=== PATIENT | female | born 1935 | race Caucasian/White ===

== ENCOUNTER 2018-12-08 01:09 | Emergency (ER) | payer MEDICARE, MEDICAID ==
[~2018-12-08] VITALS: Ht 157.5 cm; Wt 76.7 kg
[2018-12-08] MEDS ORDERED: PANT40TA3 (01:17)
[2018-12-08] MEDS ORDERED: ISOS30TA3 (01:17)
[2018-12-08] MEDS ORDERED: BUME1TAB4 (01:17)
[2018-12-08] MEDS ORDERED: MONT10TA24 (01:17)
[2018-12-08] MEDS ORDERED: SUCR1TAB (01:17)
[2018-12-08] MEDS ORDERED: WARF-47 (01:17)
[2018-12-08] MEDS ORDERED: SPIR25TA5 (01:17)
[2018-12-08] MEDS ORDERED: CARV6.252 (01:17)
[2018-12-08] MEDS ORDERED: POTA10CA43 (01:17)
[2018-12-08] MEDS ORDERED: IPRA3AMP31 (01:17)
[2018-12-08] MEDS ORDERED: WARF-48 (01:17)
[2018-12-08] MEDS ORDERED: LEVO175T5 (01:17)
--- OUTSIDE RECORDS SUMMARY | 2018-12-08 01:17 | XMS REPORT ---
Author Author [facility] Medical Staff Organization [facility] Address [address] [place] [address] Phone [phone] Summary purpose CCDA Sent to NEE Chief Complaint and Reason for Visit Admit Diagnosis 1 ATRIAL FIBRILLATION Problem list No authorized problems tracked for continuity of care are available for this visit. Encounters No authorized problems tracked for encounter diagnoses are available for this visit. Medications No home medications recorded for this patient visit Allergies, adverse reactions, alerts Allergen Category Ingredient Status Reaction Severity Onset No Allergy Information Available Drug No Allergy Information Available Active Immunizations No immunizations recorded for this patient visit Relevant diagnostic tests and/or laboratory data RESULTS CBC [id number] Result Normal Range Units White Blood Count L 2.75 3.0-11.2 K/uL Red Blood Cells L 3.10 3.99-5.76 x 106/uL Hemoglobin L 9.5 11.7-16.7 g/dl Hematocrit L 30.0 38.7-52.5 % Mean Alice Volume 96.8 86-100 FL Mean Alice Hemoglobin 30.6 27.5-33.5 pg Mean Alice Hemoglobin Conc 31.7 31.3-36.0 g/dl Red Cell Distribution Width 12.5 % Platelet Count L 79 140-375 K/uL Neutrophil % 66.1 41.1-91.7 % Lymphocyte % 20.4 7.6-58.5 % Monocyte % 11.3 0-13 % Eosinophil % 1.5 0-10 % Basophil % 0.7 0-7 % Chemistry Group [id number] Result Normal Range Units Urea Nitrogen (BUN) H 40 9.8-20.1 mg/dl Creatinine H 1.28 0.57-1.11 mg/dl Bun/Creatiinine Ratio 31 Ratio Glucose H 129 70-100 mg/dl Sodium 141 136-145 mmol/L Potassium 4.8 3.5-5.1 mEq/l Chloride 103 98-107 mEq/l CO2 30 23-31 mmol/L Anion GAP 8 g/dl Calcium 10.0 8.4-10.5 mg/dl Osmolality Calculation H 303 280-300 mOsm/kg eGFR L 40 >=60 ml/min. Coagulation Group [id number] Result Normal Range Units Protime H 35.6 9.8-12.5 Sec INR 3.28 INR INR THERAPEUTIC RANGES Primary and secondary prevention of venous thrombosis 2.0-3.0 Active venous thrombosis, pulmonary embolism and prevention of recurrent venous thrombosis: 2.0-4.0 Prevention of arterial thrombo-embolism, including patients with mechanical heart valves: 2.5-3.5 History of procedures Procedure Code Code Type Description Date Performed Performing Physician 72901 CPT-4 METABOLIC PANEL TOTAL CA 12-17-2014 JUAN VÁZQUEZ 44094 CPT-4 PROTHROMBIN TIME 12-17-2014 JUAN VÁZQUEZ 10017 CPT-4 COMPLETE CBC W/AUTO DIFF WBC 12-17-2014 JUAN VÁZQUEZ 13342 CPT-4 ROUTINE VENIPUNCTURE 12-17-2014 JUAN VÁZQUEZ Functional status No functional or cognitive status observations are available for this visit. Vital signs No authorized vital signs are available for this visit. Social history No Social History or smoking status observations were recorded for this visit. ( Unknown if ever smoked.) Treatment Plan No treatment plan text is available for this visit. Hospital discharge instructions No discharge instruction text is available for this visit.
--- OUTSIDE RECORDS SUMMARY | 2018-12-08 01:17 | XMS REPORT | Referral Summary ---
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 Discharge Disposition: 01-Home or Self Care Attending Physician: Edil Cantrell MD Admitting Physician: Marcela Felder DO Vital Signs Most recent to 1 oldest [Reference Range]: Temperature Axillary 36.7 degC [35.2-36.7 degC] (06/24/15 4:00 AM) Temperature Oral 36.6 degC [35.8-37.3 degC] (06/27/15 5:35 PM) Temperature Tympanic 36.7 degC [36.6-38.1 degC] (06/25/15 4:00 AM) Temperature Temporal 36.5 degC Artery [36.3-37.8 (06/25/15 9:43 PM) degC] Peripheral Pulse 60 bpm Rate [60-100 bpm] (06/27/15 5:35 PM) Peripheral Pulse 60 bpm Rate with Activity (06/24/15 9:28 AM) Heart Rate Monitored 61 bpm [60-100 bpm] (06/26/15 9:00 PM) Respiratory Rate 18 br/min [14-20 br/min] (06/27/15 5:35 PM) Blood Pressure 142/63 mmHg [90-140/60-90 mmHg] *HI* (06/27/15 5:35 PM) Mean Arterial 62 mmHg Pressure, Cuff (06/25/15 9:00 PM) Pulse Rate [60-100 72 bpm bpm] (06/27/15 3:41 PM) SpO2 100 % (06/27/15 3:00 PM) Problem List Condition Effective Dates Status Health Status Informant At risk for activity Active intolerance(Confirme d)1 At risk for Active infection(Confirmed) 2 At risk for Active injury(Confirmed)3 At risk for unstable Active blood glucose level(Confirmed)4 At risk of pressure Active sore(Confirmed) Bleeding Active precautions(Confirme d)5 Breath 06/21/15 Active patient shortness(Confirmed) Edema Active patient extremities(Confirme d) Fatigue(Confirmed) Active patient Fluid Active imbalance(Confirmed) 6 Bleeding Active gastrointestinal(Con firmed) Tricuspid valve Active replaced(Confirmed) Mitral valve Active replaced(Confirmed) Left ventricular Active systolic dysfunction, NYHA class 2(Confirmed) Sick sinus Active syndrome(Confirmed) 1Problem added automatically by system based on initiation of At Risk for Activity Intolerance Plan of Care 2Problem added automatically by system based on initiation of At Risk for Infection in Nutrition Plan of Care 3Problem added automatically by system based on initiation of Risk for Injury Plan of Care 4Problem added automatically by system based on initiation of At Risk for Unstable Blood Glucose Plan of Care 5Problem added automatically by system based on initiation of Bleeding Precautions Plan of Care 6Problem added automatically by system based on initiation of Fluid Volume Imbalance Plan of Care Allergies, Adverse Reactions, Alerts No Known Allergies Medications Aldactone 12.5 mg, Oral, Daily, 0 Refill(s) Start Date: 06/21/15 Status: Ordered Bumex 1 mg, Oral, Daily, 0 Refill(s) Start Date: 06/21/15 Status: Ordered Coreg 6.25 mg, Oral, BID, 0 Refill(s) Start Date: 06/21/15 Status: Ordered docusate sodium 100 mg, Oral, Daily, 0 Refill(s) Start Date: 06/21/15 Status: Ordered DuoNeb 0.5 mg-2.5 mg/3 mL inhalation solution 3 mL, Inhalation, QID, as needed for shortness of breath or wheezing, 0 Refill(s ) Start Date: 06/21/15 Status: Ordered enoxaparin 80 mg/0.8 mL injectable solution 80 mg 0.8 mL, SubCutaneous, q12hr, X 2 days, # 3.2 mL, 0 Refill(s) Start Date: 06/27/15 Stop Date: 06/29/15 Status: Ordered ferrous sulfate 325 mg, Oral, TID, 0 Refill(s) Start Date: 06/21/15 Status: Ordered levothyroxine 100 mcg, Oral, Daily, 0 Refill(s) Start Date: 06/21/15 Status: Ordered lisinopril 5 mg, Oral, Daily, 0 Refill(s) Start Date: 06/21/15 Status: Ordered Lovenox 80 mg/0.8 mL injectable solution 70 mg 0.7 mL, SubCutaneous, q12hr, X 5 days, # 7 mL, 0 Refill(s), Pharmacy: [facility], 0.7 mL SubCutaneous q12hr,x5 days Start Date: 06/27/15 Stop Date: 07/02/15 Status: Ordered Nitrostat 0.4 mg sublingual tablet 0.4 mg 1 tabs, SubLingual, q5min, as needed for chest pain, If chest pain not relieved in 5 minutes after first dose, seek immediate medical attention, # 100 tabs, 0 Refill(s) Start Date: 06/21/15 Status: Ordered Ocuvite 1 tabs, Oral, Daily, 0 Refill(s) Start Date: 06/21/15 Status: Ordered pantoprazole 40 mg oral delayed release tablet 40 mg 1 tabs, Oral, BID, # 60 tabs, 0 Refill(s), Pharmacy: [facility], 1 tabs Oral BID Start Date: 06/27/15 Status: Ordered Singulair 10 mg, Oral, qPM, 0 Refill(s) Start Date: 06/21/15 Status: Ordered TheraTears 1 drops, Eye-Both, QID, for dry eyes, 0 Refill(s) Start Date: 06/21/15 Status: Ordered Vitamin C 500 mg, Oral, BID, 0 Refill(s) Start Date: 06/21/15 Status: Ordered Vitamin D3 5,000 Intl_Units, Oral, Daily, 0 Refill(s) Start Date: 06/21/15 Status: Ordered warfarin 5 mg, Oral, Daily, 0 Refill(s) Start Date: 06/21/15 Status: Ordered Zinc 50 mg, Oral, Daily, 0 Refill(s) Start Date: 06/21/15 Status: Ordered Results Hematology Most recent to 1 oldest [Reference Range]: WBC [4.8-10.8 2.4 10*3/uL 10*3/uL] *LOW* (06/27/15 5:52 AM) RBC [4.00-5.20] 2.39 *LOW* (06/27/15 5:52 AM) Hgb [12.0-16.0 7.1 gm/dL gm/dL] *LOW* (06/27/15 5:52 AM) Hct [37.0-47.0 %] 22.4 % *LOW* (06/27/15 5:52 AM) MCV [82.0-99.0 fL] 93.7 fL (06/27/15 5:52 AM) MCH [27.0-32.0 pg] 29.7 pg (06/27/15 5:52 AM) MCHC [32.0-36.0 31.7 gm/dL gm/dL] *LOW* (06/27/15 5:52 AM) RDW [11.5-14.5 %] 19.3 % *HI* (06/27/15 5:52 AM) Platelet [150-400 119 10*3/uL 10*3/uL] *LOW* (06/27/15 5:52 AM) MPV [9.4-12.4 fL] 10.0 fL (06/27/15 5:52 AM) Immature 0.8 % Granulocytes (06/27/15 5:52 AM) [0.0-1.0 %] Neutrophils [51-75 67 % %] (06/27/15 5:52 AM) Band Man [0-8 %] 1 % (06/22/15 4:13 AM) Myelo Man 1 % (06/22/15 4:13 AM) Lymphocytes [20-46 19 % %] *LOW* (06/27/15 5:52 AM) Monocytes [4-11 %] 11 % (06/27/15 5:52 AM) Eosinophils [0-4 %] 2 % (06/27/15 5:52 AM) Basophils [0-2 %] 0 % (06/27/15 5:52 AM) Neutro Absolute 1.62 10*3 [1.90-7.00 10*3] *LOW* (06/27/15 5:52 AM) Lymph Absolute 0.45 10*3 [0.80-3.30 10*3] *LOW* (06/27/15 5:52 AM) [place] Absolute 0.26 10*3 [0.30-1.00 10*3] *LOW* (06/27/15 5:52 AM) Eos Absolute 0.05 10*3 [0.00-0.50 10*3] (06/27/15 5:52 AM) Baso Absolute 0.01 10*3 [0.00-0.20 10*3] (06/27/15 5:52 AM) Polychrom Occasional *ABN* (06/22/15 4:13 AM) Ovalocytes Occasional *ABN* (06/22/15 4:13 AM) Schistocyte Occasional *ABN* (06/22/15 4:13 AM) Nucleated RBC 0.0 /100 WBC Automated [0 /100 (06/27/15 5:52 AM) WBC] Differential Reviewed (06/22/15 4:13 AM) Reticulocyte 4.8 % [0.6-2.5 %] *HI* (06/26/15 5:51 AM) Coagulation Most recent to 1 oldest [Reference Range]: INR [0.9-1.2] 1.1 (06/27/15 5:52 AM) PTT [25.0-35.0 36.9 seconds seconds] *HI* (06/26/15 5:51 AM) Chemistry Most recent to 1 oldest [Reference Range]: Sodium Lvl [136-144 136 mEq/L mEq/L] (06/27/15 5:52 AM) Potassium Lvl 4.0 mEq/L [3.6-5.1 mEq/L] (06/27/15 5:52 AM) Chloride [99-109 101 mEq/L mEq/L] (06/27/15 5:52 AM) CO2 [22-32 mEq/L] 29 mEq/L (06/27/15 5:52 AM) AGAP [3-20] 6 (06/27/15 5:52 AM) BUN [4-20 mg/dL] 16 mg/dL (06/27/15 5:52 AM) Glucose Lvl [70-100 97 mg/dL mg/dL] (06/27/15 5:52 AM) Creatinine Lvl 0.88 mg/dL [0.44-1.03 mg/dL] (06/27/15 5:52 AM) eGFR [>60] >60 1 (06/27/15 5:52 AM) Calcium Lvl 8.4 mg/dL [8.6-10.0 mg/dL] *LOW* (06/27/15 5:52 AM) Albumin Lvl [3.5-4.8 2.7 gm/dL gm/dL] *LOW* (06/27/15 5:52 AM) Total Protein 4.8 gm/dL [6.1-7.9 gm/dL] *LOW* (06/21/15 9:49 AM) Globulin [1.9-4.3 2.0 gm/dL gm/dL] (06/21/15 9:49 AM) ALT [14-54 U/L] 32 U/L (06/21/15 9:49 AM) AST [15-41 U/L] 29 U/L (06/21/15 9:49 AM) Alk Phos [26-104 38 U/L U/L] (06/21/15 9:49 AM) Bili Total [0.2-1.2 0.6 mg/dL 2 mg/dL] (06/21/15 9:49 AM) Bili Direct [0.0-0.2 0.1 mg/dL mg/dL] (06/21/15 9:49 AM) Bili Indirect 0.5 mg/dL [0.0-1.0 mg/dL] (06/21/15 9:49 AM) Magnesium Lvl 1.9 mg/dL [1.8-2.5 mg/dL] (06/27/15 5:52 AM) Phosphorus [2.4-4.7 3.4 mg/dL 3 mg/dL] (06/27/15 5:52 AM) Blood Glucose, 177 mg/dL Capillary [70-100 *HI* mg/dL] (06/21/15 5:32 PM) 1Result Comment: Multiply eGFR results by 1.21 for race. 2Result Comment: Naproxen, specifically the metabolite O-desmethylnaproxen, may cause spurious elevation in Total Bilirubin levels. 3Result Comment: High dosages of liposomal Amphotericin B (AmBisome) therapy or other drug preparations that use a liposomal envelope to facilitate drug delivery may cause falsely elevated results for phosphorus. Blood Bank Results Most recent to 1 oldest [Reference Range]: ABO/Rh A POS (06/26/15 6:40 PM) Antibody Screen Tube POS (06/26/15 6:40 PM) Antibody ID POS, Anti-FYA POS, Anti-Laura (06/21/15 9:49 AM) Immunizations No data available for this section Procedures Procedure Date Related Diagnosis Body Site Esophagogastroduodenoscopy - SN1 06/22/15 Mastectomy of left breast 2009 Tonsillectomy2 08/16/56 Hiatal hernia Open heart surgery3 1auto-populated from documented surgical case 2patient cannot remeber the exact date but can remember the year. [address] had surgery on mitral valve. 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
--- OUTSIDE RECORDS SUMMARY | 2018-12-08 01:17 | XMS REPORT | CCD ---
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 BP Systolic 107 mmHg 04/10/2015 11:47 Initial VS BP Diastolic 47 mmHg 04/10/2015 11:47 Initial VS Respiratory Rate 18 bpm 04/10/2015 11:47 Initial VS Heart Rate 61 bpm 11:47 Initial VS O2 % BldC Oximetry 99 % 04/10/2015 11:47 Initial VS Body Temperature 97.9 degrees 04/10/2015 11:47 Initial VS Weight Measured 148.2 lbs 04/10/2015 13:19 Initial VS Height 63.5 in 2014 13:19 Initial VS BMI (Body Mass Index) 25.81 kg/m^2 04/10/2015 13:19 Initial VS BSA (Body Surface Area) 1.74 m^2 04/10/2015 13:19 Initial VS Weight Measured 148.12 lbs 04/10/2015 13:49 Most Recent VS Height 63.5 in 2014 13:49 Most Recent VS BMI (Body Mass Index) 25.83 kg/m^2 04/10/2015 13:49 Most Recent VS BSA (Body Surface Area) 1.74 m^2 04/10/2015 13:49 Most Recent VS BP Systolic 118 mmHg 04/12/2015 10:05 Most Recent VS BP Diastolic 57 mmHg 04/12/2015 10:05 Most Recent VS Respiratory Rate 25 bpm 04/12/2015 10:05 Most Recent VS Heart Rate 60 bpm 10:05 Most Recent VS O2 % BldC Oximetry 98 % 04/12/2015 10:05 Most Recent VS Body Temperature 97.8 degrees 04/12/2015 10:05 Most Recent VS Allergies Allergy Code Allergy Type Reaction Status CIPROFLOXACIN 2551 Drug allergy Active Procedures Procedure Code Procedure Type Date TROPONIN 408798327 SNOMED CT 04/10/2015 History of Immunizations Unknown or Not Available. Problems Unknown or Not Available. Results BASIC METABOLIC PANEL - Collect Date/Time: 04/11/2015 06:30 Test Name Code Test Result Test Units Test Ref Range GLUCOSE 2345-7 98 MG/ DL L=73 H=113 UREA NITROGEN 3094-0 48 MG/DL L=10 H=25 CREATININE 2160-0 1.2 MG/DL L=0.8 H=1.2 CALCIUM 07148-0 9.0 MG /DL L=8.0 H=10.0 SODIUM 2951-2 140 MMOL /L L=133 H=143 POTASSIUM 2823-3 4.9 MMOL/L L=3.5 H=5.2 CHLORIDE 2075-0 106 MMOL/L L=99 H=108 CO2 2028-9 27 MMOL/L L=22 H=30 ANION GAP 19857-0 12 L=6 H=16 OSMO, CALC. 29444-8 303 MOS/KG L=283 H=300 B/C RATIO 3097-3 40 L=10 H=20 AGE 81937-1 80 YRS eGFR 37106-6 43 mL/ min L=60 H=140 C-REACTIVE PROTEIN - Collect Date/Time: 04/12/2015 06:18 Test Name Code Test Result Test Units Test Ref Range CRP 1988-5 0.0 MG/DL L=0.0 H=0.5 CK - Collect Date/Time: 04/10/2015 10:19 Test Name Code Test Result Test Units Test Ref Range CK 2157-6 90 IU/L L=25 H=155 CKMB - Collect Date/Time: 04/10/2015 10:19 Test Name Code Test Result Test Units Test Ref Range CKMB 90654-6 1.1 NG/ ML L=0.0 H=10.4 COMPREHENSIVE METABOLIC PANEL - Collect Date/Time: 04/12/2015 06:18 Test Name Code Test Result Test Units Test Ref Range SODIUM 2951-2 141 MMOL /L L=133 H=143 POTASSIUM 2823-3 4.5 MMOL/L L=3.5 H=5.2 CHLORIDE 2075-0 106 MMOL/L L=99 H=108 CO2 2028-9 28 MMOL/L L=22 H=30 GLUCOSE 2345-7 91 MG/ DL L=73 H=113 UREA NITROGEN 3094-0 35 MG/DL L=10 H=25 CREATININE 2160-0 1.0 MG/DL L=0.8 H=1.2 ANION GAP 87791-2 12 L=6 H=16 OSMO, CALC. 51475-5 300 MOS/KG L=283 H=300 TOTAL PROTEIN 2885-2 5.5 G/DL L=6.0 H=8.3 ALBUMIN 3.4 G/DL L=3.5 H=5.0 GLOBULIN 44658-8 2.1 G /DL L=1.9 H=3.5 A/G RATIO 1759-0 1.62 L=1.10 H=3.00 AST 1920-8 29 IU/L L=2 H=36 ALT 1744-2 21 IU/L L=7 H=52 TOTAL BILI 1974- 1.2 MG/DL L=0.0 H=1.5 DIRECT BILI 1967- 0.5 MG/DL L=0.0 H=0.3 INDIRECT BILI 1970-08 0.7 MG/DL L=0.2 H=0.8 ALK PHOS 6768-6 34 IU/ L L=34 H=104 CALCIUM 55435-2 8.9 MG /DL L=8.0 H=10.0 B/C RATIO 3097-3 35 L=10 H=20 AGE 51651-0 80 YRS eGFR 48108-5 53 mL/ min L=60 H=140 COMPREHENSIVE METABOLIC PANEL - Collect Date/Time: 04/10/2015 10:19 Test Name Code Test Result Test Units Test Ref Range SODIUM 2951-2 135 MMOL /L L=133 H=143 POTASSIUM 2823-3 5.1 MMOL/L L=3.5 H=5.2 CHLORIDE 2075-0 99 MMOL/L L=99 H=108 CO2 2028-9 28 MMOL/L L=22 H=30 GLUCOSE 2345-7 149 MG/ DL L=73 H=113 UREA NITROGEN 3094-0 64 MG/DL L=10 H=25 CREATININE 2160-0 1.9 MG/DL L=0.8 H=1.2 ANION GAP 34055-5 13 L=6 H=16 OSMO, CALC. 91033-7 301 MOS/KG L=283 H=300 TOTAL PROTEIN 2885-2 6.2 G/DL L=6.0 H=8.3 ALBUMIN 3.8 G/DL L=3.5 H=5.0 GLOBULIN 05938-3 2.4 G /DL L=1.9 H=3.5 A/G RATIO 1759-0 1.58 L=1.10 H=3.00 AST 1920-8 27 IU/L L=2 H=36 ALT 1744-2 18 IU/L L=7 H=52 TOTAL BILI 1974- 0.5 MG/DL L=0.0 H=1.5 DIRECT BILI 1967- 0.2 MG/DL L=0.0 H=0.3 INDIRECT BILI 1971-1 0.3 MG/DL L=0.2 H=0.8 ALK PHOS 6768-6 38 IU/ L L=34 H=104 CALCIUM 21385-5 9.3 MG /DL L=8.0 H=10.0 B/C RATIO 3097-3 34 L=10 H=20 AGE 22014-6 80 YRS eGFR 65105-3 25 mL/ min L=60 H=140 FOLIC ACID - Collect Date/Time: 04/11/2015 23:16 Test Name Code Test Result Test Units Test Ref Range FOLATE 5908-9 18.2 NG/ ML L=3.4 H=20.0 IRON STUDIES W/FERRITIN - Collect Date/Time: 04/11/2015 23:16 Test Name Code Test Result Test Units Test Ref Range IRON 730-2 54 MCG/DL L=25 H=190 TIBC 63232-6 324 MCG/ DL L=250 H=450 %SAT 18672-1 17 % L=15 H=50 FERRITIN 2276-4 29 NG/ ML L=5 H=380 TROPONIN - Collect Date/Time: 04/10/2015 10:19 Test Name Code Test Result Test Units Test Ref Range TROPONIN I 737[address]-2 0.01 NG/ML L=0.00 H=0.40 TSH - Collect Date/Time: 04/10/2015 10:19 Test Name Code Test Result Test Units Test Ref Range TSH 3016-3 1.32 MIU/ ML L=0.49 H=4.67 VITAMIN B-12 (COBALAMIN) - Collect Date/Time: 04/11/2015 23:16 Test Name Code Test Result Test Units Test Ref Range VITAMIN B-12 3016-3 515 PG/ML L=200 Y=8747 BNP - Collect Date/Time: 04/10/2015 10:19 Test Name Code Test Result Test Units Test Ref Range BNP 68444-6 59 pg/mL L=0 H=100 CBC - Collect Date/Time: 04/12/2015 06:18 Test Name Code Test Result Test Units Test Ref Range WBC 6690-2 2.6 10^3/ UL L=4.0 H=11.0 RBC 40092-4 2.69 10^6/ UL L=4.20 H=5.20 HGB 718-7 8.1 G/DL L=12.0 H=16.0 HCT 4544-3 25.5 % L=37.0 H=47.0 MCV 787-2 94.8 FL L=81.0 H=99.0 MCH 785-6 30.1 PG L=27.0 H=32.0 MCHC 786-4 31.8 G/DL L=32.0 H=36.0 RDW 788-0 16.6 % L=11.5 H=14.5 PLT 777-3 80 10^3/UL L=150 H=450 MPV 92565-0 9.3 FL L=6.0 H=9.5 LY 731-0 21.2 % L=20.0 H=40.0 MO 5905-5 10.6 % L=4.0 H=12.0 GR 770-8 65.8 % L=40.0 H=70.0 EO 713-8 2.0 % L=0.0 H=4.0 BA 706-2 0.4 % L=0.1 H=3.0 LY# 68098-2 0.5 10^3/ UL L=1.5 H=3.5 MO# 742-7 0.3 10^3/UL L=0.0 H=1.0 GR# 751-8 1.7 10^3/UL L=1.5 H=7.3 EO# 711-2 0.1 10^3/UL BA# 704-7 0.0 10^3/UL SEGS 769-0 69 % L=40 H=70 LYMPH 730-2 20 % L=20 H=40 MONO 744-3 9 % L=4 H=12 EOS 714-6 2 % L=0 H=4 MANUAL DIFF. 09522-3 SEE BELOW N/A RBC MORPH 5909-7 SEE BELOW N/A ANISO 702-1 1+ N/A HYPO 728-6 1+ N/A OTHER SEEN 5909-7 NONE N/A PLT MORPHOLOGY 24165-7 NORMAL N/A CBC - Collect Date/Time: 04/11/2015 23:16 Test Name Code Test Result Test Units Test Ref Range WBC 6690-2 2.9 10^3/ UL L=4.0 H=11.0 RBC 63950-0 2.70 10^6/ UL L=4.20 H=5.20 HGB 718-7 8.2 G/DL L=12.0 H=16.0 HCT 4544-3 25.7 % L=37.0 H=47.0 MCV 787-2 95.2 FL L=81.0 H=99.0 MCH 785-6 30.4 PG L=27.0 H=32.0 MCHC 786-4 31.9 G/DL L=32.0 H=36.0 RDW 788-0 16.4 % L=11.5 H=14.5 PLT 777-3 74 10^3/UL L=150 H=450 MPV 35839-8 9.7 FL L=6.0 H=9.5 LY 731-0 21.1 % L=20.0 H=40.0 MO 5905-5 11.2 % L=4.0 H=12.0 GR 770-8 65.2 % L=40.0 H=70.0 EO 713-8 2.1 % L=0.0 H=4.0 BA 706-2 0.4 % L=0.1 H=3.0 LY# 07488-3 0.6 10^3/ UL L=1.5 H=3.5 MO# 742-7 0.3 10^3/UL L=0.0 H=1.0 GR# 751-8 1.9 10^3/UL L=1.5 H=7.3 EO# 711-2 0.1 10^3/UL BA# 704-7 0.0 10^3/UL MANUAL DIFF. 22142-6 NOT PERFORMED N/A CBC - Collect Date/Time: 04/11/2015 06:30 Test Name Code Test Result Test Units Test Ref Range WBC 6690-2 2.7 10^3/ UL L=4.0 H=11.0 RBC 64712-0 2.26 10^6/ UL L=4.20 H=5.20 HGB 718-7 6.8 G/DL L=12.0 H=16.0 HCT 4544-3 22.2 % L=37.0 H=47.0 MCV 787-2 98.2 FL L=81.0 H=99.0 MCH 785-6 30.1 PG L=27.0 H=32.0 MCHC 786-4 30.6 G/DL L=32.0 H=36.0 RDW 788-0 15.9 % L=11.5 H=14.5 PLT 777-3 89 10^3/UL L=150 H=450 MPV 89501-0 9.5 FL L=6.0 H=9.5 LY 731-0 22.3 % L=20.0 H=40.0 MO 5905-5 11.5 % L=4.0 H=12.0 GR 770-8 64.0 % L=40.0 H=70.0 EO 713-8 1.5 % L=0.0 H=4.0 BA 706-2 0.7 % L=0.1 H=3.0 LY# 58600-2 0.6 10^3/ UL L=1.5 H=3.5 MO# 742-7 0.3 10^3/UL L=0.0 H=1.0 GR# 751-8 1.7 10^3/UL L=1.5 H=7.3 EO# 711-2 0.0 10^3/UL BA# 704-7 0.0 10^3/UL SEGS 769-0 66 % L=40 H=70 LYMPH 730-2 25 % L=20 H=40 MONO 744-3 9 % L=4 H=12 MANUAL DIFF. 42201-5 SEE BELOW N/A RBC MORPH 5909-7 SEE BELOW N/A ANISO 702-1 1+ N/A HYPO 728-6 3+ N/A OTHER SEEN 5909-7 NONE N/A PLT MORPHOLOGY 71133-9 NORMAL N/A CBC - Collect Date/Time: 04/10/2015 15:02 Test Name Code Test Result Test Units Test Ref Range WBC 6690-2 3.0 10^3/ UL L=4.0 H=11.0 RBC 16365-6 2.14 10^6/ UL L=4.20 H=5.20 HGB 718-7 6.5 G/DL L=12.0 H=16.0 HCT 4544-3 20.6 % L=37.0 H=47.0 MCV 787-2 96.3 FL L=81.0 H=99.0 MCH 785-6 30.4 PG L=27.0 H=32.0 MCHC 786-4 31.6 G/DL L=32.0 H=36.0 RDW 788-0 15.6 % L=11.5 H=14.5 PLT 777-3 82 10^3/UL L=150 H=450 MPV 51544-3 9.6 FL L=6.0 H=9.5 LY 731-0 20.5 % L=20.0 H=40.0 MO 5905-5 10.6 % L=4.0 H=12.0 GR 770-8 66.6 % L=40.0 H=70.0 EO 713-8 2.0 % L=0.0 H=4.0 BA 706-2 0.3 % L=0.1 H=3.0 LY# 50542-0 0.6 10^3/ UL L=1.5 H=3.5 MO# 742-7 0.3 10^3/UL L=0.0 H=1.0 GR# 751-8 2.0 10^3/UL L=1.5 H=7.3 EO# 711-2 0.1 10^3/UL BA# 704-7 0.0 10^3/UL MANUAL DIFF. 90686-2 NOT INDICATED N/A CBC - Collect Date/Time: 04/10/2015 10:19 Test Name Code Test Result Test Units Test Ref Range WBC 6690-2 3.9 10^3/ UL L=4.0 H=11.0 RBC 99514-8 2.39 10^6/ UL L=4.20 H=5.20 HGB 718-7 7.2 G/DL L=12.0 H=16.0 HCT 4544-3 23.3 % L=37.0 H=47.0 MCV 787-2 97.5 FL L=81.0 H=99.0 MCH 785-6 30.1 PG L=27.0 H=32.0 MCHC 786-4 30.9 G/DL L=32.0 H=36.0 RDW 788-0 15.8 % L=11.5 H=14.5 PLT 777-3 99 10^3/UL L=150 H=450 MPV 57390-6 9.1 FL L=6.0 H=9.5 LY 731-0 16.1 % L=20.0 H=40.0 MO 5905-5 9.5 % L=4.0 H=12.0 GR 770-8 72.9 % L=40.0 H=70.0 EO 713-8 1.0 % L=0.0 H=4.0 BA 706-2 0.5 % L=0.1 H=3.0 LY# 21467-3 0.6 10^3/ UL L=1.5 H=3.5 MO# 742-7 0.4 10^3/UL L=0.0 H=1.0 GR# 751-8 2.9 10^3/UL L=1.5 H=7.3 EO# 711-2 0.0 10^3/UL BA# 704-7 0.0 10^3/UL MANUAL DIFF. 64105-2 NOT INDICATED N/A PROTIME W/INR - Collect Date/Time: 04/12/2015 06:18 Test Name Code Test Result Test Units Test Ref Range PROTIME 90115-2 28.0 SECONDS L=10.0 H=14.0 INR 6301-6 2.55 L=0.80 H=1.20 PROTIME W/INR - Collect Date/Time: 04/11/2015 06:30 Test Name Code Test Result Test Units Test Ref Range PROTIME 86538-1 29.2 SECONDS L=10.0 H=14.0 INR 6301-6 2.67 L=0.80 H=1.20 PROTIME W/INR - Collect Date/Time: 04/10/2015 10:19 Test Name Code Test Result Test Units Test Ref Range PROTIME 05926-2 29.6 SECONDS L=10.0 H=14.0 INR 6301-6 2.70 L=0.80 H=1.20 PTT - Collect Date/Time: 04/10/2015 10:19 Test Name Code Test Result Test Units Test Ref Range aPTT 74902-6 31.7 SECONDS L=25.0 H=39.0 D-DIMER QUANTITATIVE - Collect Date/Time: 04/10/2015 10:19 Test Name Code Test Result Test Units Test Ref Range D-DIMER QUANT. 17832-2 158 NG/DL L=0 H=270 RETICULOCYTE COUNT - Collect Date/Time: 04/11/2015 23:16 Test Name Code Test Result Test Units Test Ref Range RETICULOCYTE COUNT,AUTOMATED 2.5 % RETICULOCYTE, ABSOLUTE 12785 39657-45308 Active Medications Unknown or Not Available. Medications Administered During Visit Medication Dose Units Frequency Route Date/Time of Last Dose SPIRONOLACTONE(ALDACTONE)TAB 25MG 12.5 MG [id number] PO 2014 07:31 SOD CHL 0.9% 1000ML 1000 ML CONT IV 04/11/2015 08:05 LISINOPRIL(PRINIVIL)TAB 10MG 10 MG [id number] PO 04/12/2015 07:31 MONTELUKAST(SINGULAIR)TAB:10MG 10 MG HS21 PO 04/11/2015 20:44 EC ASPIRIN(ENTERIC ASPIRIN)TAB 81MG 81 MG [id number] PO 2014 07:31 DOCUSATE SODIUM(COLACE)CAP 100MG 100 MG [id number] PO 04/12/2015 07 :31 FAMOTIDINE(PEPCID)TAB:20MG 20 MG [id number] PO 04/12/2015 07:31 LEVOTHYROXINE(SYNTHROID)TAB:0.1MG 0.1 MG [id number] PO 04/12/2015 07:31 SIMVASTATIN(ZOCOR)TAB 20MG 20 MG HS21 PO 04/11/2015 20:44 BUMETANIDE(BUMEX)TAB 1MG 1 MG [id number] PO 04/12/2015 11:20 ZINC SULFATE CAP 220MG 220 MG [id number] PO 04/12/2015 11:20 IPRAT/ALBUTER(DUONEB)AMP 0.5/3.0/3ML 3 ML QIDRT INH 2014 07:59 WARFARIN(COUMADIN)TAB 5MG 5 MG [id number] PO 04/11/2015 16:52 OCUVITE/ICAPS 1 TB HS21 PO 04/11/2015 20:44 ASCORBIC ACID(VIT C)TAB 500MG 500 MG [id number] PO 04/11/2015 16: 52 BUMETANIDE(BUMEX)INJ:1MG/4ML SDV 0.5 MG X1 IVP 04/11/2015 17: 30 PRBC 1 UN X1 IV 04/11/2015 13:59 PRBC 1 UN X1 IV 04/11/2015 20:07 Encounters Unknown or Not Available. Social History Smoking Status Code Start Date End Date Never smoker [id number] Patient Decision Aids Unknown or Not Available. Discharge Instructions You were admitted to [facility] on 04/10/2015. You had the following tests done: RETICULOCYTE COUNT,AUTOMATED RETICULOCYTE, ABSOLUTE You were discharged from [facility] on 04/12/2015. Should you have any questions prior to discharge, please contact a member of your healthcare team. If you have left the hospital and have any questions, please contact your primary care physician. DIET:Regular, 1500 ML FLUID RESTRICITON Follow-up appointment:Wednesday, 04/16/2015, with Dr. Martin Baker at [facility] at10:45 AM Dietary restrictions:1500 Fluid Restriction Activity:Up with cane. Special instructions:WEIGHT DAILY Notify physician if the following occurs:DIZZINESS, FATIGUE, SHORTNESS OF AIR, EXCESSIVE BRUISING Did you have patient sign the Medical Dismissal letter?Yes. Blood products given:Yes, Date: 04/11/2015 Blood Products:Given to improve your health. Chief Complaint and Reason For Visit Chief Complaint Date of Onset ANEMIA, YANA Function Status Unknown or Not Available. Plan of Care Unknown or Not Available. Referral/Transition of Care Unknown or Not Available.
--- OUTSIDE RECORDS SUMMARY | 2018-12-08 01:17 | XMS REPORT ---
Author Author [facility] Medical Staff Organization [facility] Address [address] [place] [address] Phone [phone] Summary purpose CCDA Sent to AZE Chief Complaint and Reason for Visit Admit Diagnosis 1 DM2/NOS UNCOMP NSU Problem list No authorized problems tracked for [...] Relevant diagnostic tests and/or laboratory data RESULTS Chemistry Group [id number]:00:00 Result Normal Range Units Hemoglobin A1C 4.9 4.0-6.0 % Normal Range Non-Diabetic4.0-6.0 Diabetic>7.0 Estimated Avg. Glucose 93.9 mg/dl History of procedures Procedure Code Code Type Description Date Performed Performing Physician 51757 CPT-4 GLYCOSYLATED HEMOGLOBIN TEST 11-20-2014 [facility] Functional status No functional or cognitive status [...]
--- OUTSIDE RECORDS SUMMARY | 2018-12-08 01:18 | XMS REPORT | Continuity of Care Document ---
Author Author Organization Address [address] [place] [address] Care Team Providers Care Supervisor [employer] Name Role Phone Toyin Harris PCP Luis Felipe Brown Attphys Allergies, Adverse Reactions, Alerts Allergen Type Severity Reaction Last Updated Verified Status diazepam Adverse Reaction Unknown euphoria March 24, 2018 Y Active Ciprofloxacin Lactate Adverse Reaction Moderate Confusion March 24, 2018 Active Medications Active Medications Medication Dose Units Route Sig Qty Days Start Date Status Instructions Bumetanide 1 MG PO twice a day February 22, 2018 Active Isosorbide Mononitrate 10 MG PO daily February 22, 2018 Active Diclofenac Sodium [Voltaren] 2 G Topical three times a day February 22, 2018 Active Carvedilol 6.25 mg PO twice a day 180 September 16, 2017 Active Bifidobacterium Infantis [Align] 4 MG PO daily March 24, 2018 Active Mupirocin Calcium [Bactroban Nasal] 1 APPLIC Intranasal twice a day March 25, 2018 Active Ocuvite PO .QD March 25, 2018 Active Probiotic PO .QD March 25, 2018 Active Sennosides 8.6 MG PO three times a day PRN March 25, 2018 Active Cyanocobalamin (Vitamin B-12) [Vitamin B-12] 1000 MCG IM every month March 24, 2018 Active Docusate Sodium 200 MG PO three times a day 60 December 21, 2008 Active Ferrous Sulfate 1 TAB PO daily 0 December 21, 2008 Active Zinc [Zinc Chelated] 50 MG PO daily 0 December 16, 2009 Active Ascorbate Calcium [Vitamin C] 500 MG PO twice a day 0 October 02, 2011 Active Diphenhydramine Hcl [Benadryl] 25 MG PO as needed 30 October 13, 2013 Active Ipratropium/Albuterol Sulfate (Duoneb 0.5 mg-3 mg/3 ml Soln*) 3 ML INH four times daily PRN For SHORTNESS OF BREATH 90 October 13, 2013 Active Montelukast Sodium [Singulair] 10 MG PO daily April 09, 2014 Active Nitroglycerin 0.4 MG SL DIRECTED April 11, [address] one tab under tongue every 5 min up to 3 doses as needed for chest pain. If chest pain not resolved, to ER/911 Pantoprazole Sodium [Protonix] 40 MG PO twice a day 60 July 16, 2015 Active Sucralfate [Carafate] 1 GM PO four times daily 0 August 28, 2016 Active Levothyroxine Sodium [Synthroid] 150 MCG PO daily August 28, 2016 Active Blood Sugar Diagnostic [Prodigy No Coding] 1 PACKET SQ twice a day November 19, 2016 Active Blood Sugar Diagnostic (One Touch Ultra Test Strips) 1 STRIP TP twice a day 100 November 19, 2016 Active Folic Acid 1 MG PO daily November 19, 2016 Active Hydrocodone/Acetaminophen [[place] 5-325 Tablet] 1 TAB PO every 6 hours as needed PRN For PAIN 40 November 19, 2016 Active Misc Items (Oxygen) 2 L NA hs and prn when@rest 0 November 19, 2016 Active Polyethylene Glycol 3350 [Miralax] 17 GM PO every other day November Active Simethicone 80 MG PO three times a day November 19, 2016 Active Vit C/Vit E/Lutein/Min/[place]-3 [Ocuvite Softgel] 1 CAP PO daily December 02, 2016 Active Psyllium Husk [Metamucil] 1 TSP PO every other day April 26, 2017 Active Acetaminophen [Mapap] 500 MG PO every 4 hours PRN For MILD PAIN April 27, 2017 Active Spironolactone 12.5 MG PO daily May 31, 2017 Active 12.5mg=1/ 2 tab take 1/2 tab daily AQUAGEL W/02 1 TAB PO daily 0 July 27, 2017 Active Carboxymethylcellulose Sodium [Thera Tears] 1 DRP ophthalmic (eye) three times a day 0 March 25, 2018 Active Warfarin Sodium 5 MG PO .AD 30 March 25, 2018 Active Discontinued Medications Medication Dose Units Route Sig Qty Days Start Date Discontinued Date Status Instructions Bifidobacterium Infantis [Align] 4 MG PO daily February 22, 2018 March 24, 2018 Discontinued Anastrozole [Arimidex] 1 MG PO daily 30 December 20, 2008 December 26, 2008 Discontinued Aspirin (Aspirin 81 Mg) 81 MG PO daily December 21, 2008 July 16, 2015 Discontinued Warfarin Sodium [Coumadin] 2.5 MG PO every Wednesday, Wednesday, and Wednesday 0 December 21, 2008 October 02, 2011 Discontinued Digoxin [Lanoxin] 250 MCG PO daily 0 December 21, 2008 November 15, 2013 Discontinued Furosemide 10 MG PO daily December 21, 2008 April 09, 2014 Discontinued Hydrocodone Bit/Acetaminophen (Lortab 5/500 Tab) 1 - 2 TAB PO every 4 hours as needed 0 December 21, 2008 January 26, 2017 Discontinued Levothyroxine Sodium [Synthroid] 112 MCG PO daily December 21, 2008 October 02, 2011 Discontinued Multivitamins (Multivitamin*) 1 TAB PO daily 0 December 21, 2008August Discontinued Potassium Chloride 103 MEQ PO daily 60 December 21, 2008 September 02, 2012 Discontinued Warfarin Sodium [Coumadin] 5 MG PO QT TH S WALKER 0 December 21, 2008 October 02, 2011 Discontinued Anastrozole [Arimidex] 1 MG PO daily December 26, 2008 April 24, 2009 Discontinued Anastrozole [Arimidex] 1 MG PO daily 30 April 24, 2009 December 21, 2011 Discontinued Ascorbic Acid [Vitamin C] 500 MG PO daily 0 December 16, 2009 October 02, 2011 Discontinued Montelukast Sodium [Singulair] 20 MG PO DAILY WITH SUPPER December 16, 2009 April 09, 2014 Discontinued Simvastatin 20 MG PO daily 0 December 16, 2009 June 11, 2015 Discontinued Levothyroxine Sodium 200 MCG PO daily 0 October 02, 2011September Discontinued Lutein 6 MG PO daily 0 October 02, 2011 October 13, 2013 Discontinued [place]-3 Fatty Acids [[place]-3] 1 CAP PO daily 0 October 02, 2011 October 13, 2013 Discontinued Potassium Chloride 20 MEQ PO daily 30 October 02, 2011 January 14, 2012 Discontinued Warfarin Sodium [Coumadin] 2 MG PO October 02, 2011 January 14, 2012 Discontinued Warfarin Sodium [Coumadin] 3 MG PO daily 30 October 02, 2011December Discontinued Anastrozole [Arimidex] 1 MG PO daily 30 December 21, 2011 July 18, 2012 Discontinued warfarin 5 MG PO daily 0 January 14, 2012 November 21, 2013 Discontinued BRA 1 February 04, 2012 October 13, 2013 Discontinued Anastrozole [Arimidex] 1 MG PO daily July 18, 2012 February 21, 2013 Discontinued Cholecalciferol (Vitamin D) 1000 UNIT PO daily 0 September 02, 2012 October 13, 2013 Discontinued Anastrozole [Arimidex] 1 MG PO daily 30 February 21, 2013 August 14, 2013 Discontinued Mastectomy Bra MISCELL. July 12, 2013 October 13, 2013 Discontinued Mastectomy Prothesis (Mastectomy Prosthesis) MISCELL. 1 July 12, 2013 October 13, 2013 Discontinued Anastrozole [Arimidex] 1 MG PO daily 30 August 14, 2013 November 21, 2013 Discontinued Cholecalciferol (Vitamin D) 5000 UNIT PO daily 0 October 13, 2013 August 13, 2016 Discontinued Vits A,C,E/Lutein/Minerals [Ocuvite With Lutein Tablet] 1 TAB PO daily 0 October 13, 2013 December 02, 2016 Discontinued Carboxymethylcellulose Sodium [Thera Tears] 1 DROPS BOTH EYES four times daily 0 October 13, 2013 March 25, 2018 Discontinued Isosorbide Mononitrate (Imdur*) 15 MG PO every day at bedtime 15 November 15, 2013 March 20, 2014 Discontinued Digoxin 125 MCG PO daily 90 November 15, 2013 April 04, 2014 Discontinued Lisinopril 5 MG PO every day at bedtime 90 November 15, 2013 March 20, 2014 Discontinued Warfarin Sodium [Coumadin] 5 MG PO daily 30 November 21, 2013 April 09, 2014 Discontinued Anastrozole [Arimidex] 1 MG PO daily 90 November 21, 2013 April 26, 2014 Discontinued Carvedilol 6.25 MG PO twice a day 180 March 20, 2014 December 17, 2014 Discontinued Bumetanide 1 MG PO daily 30 April 09, 2014 May 31, 2014 Discontinued Warfarin Sodium [Coumadin] 5 MG PO DIRECTED 60 April 09, 2014 October 16, 2014 Discontinued Take 1 tablet on Wednesday, Wednesday, Wednesday, Wednesday, and Wednesday and take 1 1/2 tablets on Wednesday and Lisinopril [Prinivil] 5 MG PO twice a day 60 April 09, 2014 April 09, 2014 Discontinued 5 MG=1/2 TABLET Lisinopril [Prinivil] 5 MG PO twice a day 30 April 09, 2014 April 30, 2014 Discontinued 5 MG=1/2 TABLET at bedtime Lisinopril 10 MG PO daily 30 April 30, 2014 June 19, 2014 Discontinued Bumetanide 1.5 MG PO twice a day 0 May 31, 2014 February 22, 2018 Discontinued Lisinopril 10 MG PO daily 90 June 19, 2014 September 28, 2014 Discontinued Spironolactone 25 MG PO daily 90 June 19, 2014 June 19, 2014 Discontinued Famotidine [Pepcid] 20 MG PO every day at bedtime 30 June 19, 2014 July 16, 2015 Discontinued Spironolactone 12.5 MG PO daily 45 June 19, 2014 August 15, 2015 Discontinued 12.5mg=1/2 tab take 1/2 tab daily Lisinopril 5 MG PO daily 15 September 28, 2014 July 08, 2015 Discontinued Warfarin Sodium 6 MG PO DIRECTED October 16, 2014 December 02, 2016 Discontinued Carvedilol 6.25 MG PO twice a day 180 December 17, 2014 September 23, 2015 Discontinued Cephalexin 500 MG PO three times a day 0 December 19, 2014 December 30, 2014 Discontinued Lisinopril 5 MG PO daily 30 July 08, 2015 July 08, 2015 Discontinued Lisinopril 5 MG PO daily 30 July 08, 2015 September 18, 2015 Discontinued 5mg=1/2 tab daily. Spironolactone 12.5 MG PO daily 45 August 15, 2015 August 21, 2016 Discontinued 12.5mg=1/2 tab take 1/2 tab daily Carvedilol 6.25 MG PO twice a day 180 September 23, 2015 September 18, 2016 Discontinued Lorazepam [Ativan] 1 MG PO DIRECTED December 04, 2015 January 02, 2016 Discontinued take 1mg po 1 hr prior to procedure Lisinopril 5 MG PO every day at bedtime 45 January 21, 2016 February 06, 2016 Discontinued Cyanocobalamin (Cyanocobalamin 1000MCG\Ml*) 1000 MCG IM Monthly February 06, 2016 March 24, 2018 Discontinued Lisinopril 5 MG PO every day at bedtime 45 May 12, 2016 August 03, 2016 Discontinued Spironolactone 12.5 MG PO daily 45 August 21, 2016 May 31, 2017 Discontinued 12.5mg=1/2 tab take 1/2 tab daily Carvedilol 6.25 mg PO twice a day 180 September 18, 2016 September 16, 2017 Discontinued Lisinopril 5 MG PO daily 15 November 19, 2016 December 02, 2016 Discontinued Warfarin Sodium 5 MG PO daily 30 December 02, 2016 March 25, 2018 Discontinued Vitamin E 180 UNIT PO daily 0 July 27, 2017 March 25, 2018 Discontinued Bumetanide 1 MG PO daily 90 September 09, 2017 February 22, 2018 Discontinued Potassium Chloride 40 MEQ PO daily 120 September 09, 2017 February 22, 2018 Discontinued 40meq=4 tablets Problem List Active Problems Medical Problem Onset Date Status Personal history of breast cancer Active S/P placement of cardiac pacemaker Active History of cardiac catheterization Active H/O mitral valve replacement with mechanical valve Active 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 Actinic keratosis Active CKD (chronic kidney disease), stage III Active Congestive heart failure (CHF) April 08, 2014 Active Anemia Active Unstable angina Active Atrial fibrillation Active Nonischemic cardiomyopathy Active CKD (chronic kidney disease) Active NYHA class 3 acute on chronic systolic heart failure Active Pancytopenia Active Blood loss anemia Active Thrombocytopenia Active Chronic a-fib Active Invasive ductal carcinoma of left breast Active S/P mastectomy Active 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 H/O mitral valve replacement Active S/P hernia repair Active S/P TVR (tricuspid valve replacement) Active H/O mastectomy Active S/P tonsillectomy and adenoidectomy Active Pacemaker Active Hx of CABG Active Procreation management investigation and testing Active Chest pain Active Hypertension Active Inactive/Resolved Problems Medical Problem Onset Date Status Diabetes Inactive Deep vein thrombosis Inactive Congestive heart failure Inactive Afib Inactive Breast cancer Inactive Pacemaker at end of battery life December 19, 2014 Inactive COPD (chronic obstructive pulmonary disease) Inactive Cardiac pacemaker Inactive CVA (cerebral vascular accident) Inactive Procedures Procedure Date Status MM Mammo Diag Unilat RT w/Naun October 29, 2017 completed Reason for Referral Reason for Referral Date Referral was Provided Provider Office Contact Location 1.[facility] - Other pancytopenia February 24, 2018 Roxann Jarrett Relevant Diagnostic Tests and/or Laboratory Data Laboratory Results Test Date/Time Result Interp. Ref. Range Result Comment Bedside Urine Clarity March 24, 2018 9:57am CLEAR (N=CLEAR) Bedside Urine Color (LAB) March 24, 2018 9:57am STRAW (N=CLEAR) Bedside Urine Specific [place] (LAB March 24, 2018 9:57am 1.005(N=1.000- 1.025 Bedside Urine pH (LAB) March 24, 2018 9:57am 6.5 (N=5.0-6.0) Bedside Urine Leukocyte Esterase (L March 24, 2018 9:57am MODERATE (N=NEG Bedside Urine Nitrite (LAB) March 24, 2018 9:57am NEGATIVE (N=NEG) Bedside Urine Protein (LAB) March 24, 2018 9:57am NEGATIVE (N=NEG) Bedside Urine Glucose (UA) March 24, 2018 9:57am NORMAL (N=NORMAL) Bedside Urine Ketones (LAB) March 24, 2018 9:57am NEGATIVE (N=NEG) Bedside Urine Urobilinogen (LAB) March 24, 2018 9:57am NORMAL (N=NORMAL) Bedside Urine Bilirubin (LAB) March 24, 2018 9:57am NEGATIVE (N=NEG) Bedside Urine Occult Blood (LAB) March 24, 2018 9:57am SMALL (N=NEG) Prothrombin Time April 27, 2017 5:21am 36.2 seconds High 9.0-11.5 Prothromb Time International Ratio April 27, 2017 5:21am 3.4 High 0.9- 1.1 INR reference interval applies to patients not on anticoagulant therapy. The INR is a calculated value and is used to guide oral anticoagulation therapy. Recommended INR Range Moderate Intensity Warfarin Therapy 2.0 - 3.0 Higher Intensity Warfarin Therapy 2.5 - 3.5 White Blood Count April 27, 2017 5:21am 2.7 1000/cmm Low 3.8-10.8 Red Blood Count April 27, 2017 5:21am 3.04 MIL/uL Low 3.80-5.10 Hemoglobin April 27, 2017 5:21am 8.8 g/dL Low 11.7-15.5 Hematocrit April 27, 2017 5:21am 27.7 % Low 35.0-45.0 Mean Corpuscular Volume April 27, 2017 5:21am 91 fL 80-100 Mean Corpuscular Hemoglobin April 27, 2017 5:21am 29 pg 27-33 Mean Corpuscular Hemoglobin Concent April 27, 2017 5:21am 32 g/dL 32- 36 Red Cell Distribution Width April 27, 2017 5:21am 16.5 % High 11.0- 15.0 Platelet Count April 27, 2017 5:21am 65 1000/cmm Low 140-400 Mean Platelet Volume April 27, 2017 5:21am 10.3 fL 8.7-11.9 Granulocytes (%) April 27, 2017 5:21am 66.7 % Lymphocytes % April 27, 2017 5:21am 19.2 % Monocytes % April 27, 2017 5:21am 9.6 % Eosinophils % April 27, 2017 5:21am 4.1 % Basophils % April 27, 2017 5:21am 0.4 % Granulocytes # April 27, 2017 5:21am 1.81 1000/uL 1.50-7.80 Lymphocytes # April 27, 2017 5:21am 0.52 1000/uL Low 0.85-3.90 Monocytes # April 27, 2017 5:21am 0.26 1000/uL 0.20-0.95 Eosinophils # April 27, 2017 5:21am 0.11 1000/uL 0.01-0.50 Basophils # April 27, 2017 5:21am 0.01 1000/uL 0.00-0.20 Urine Microalbumin mg/dl March 24, 2018 12:59pm < 0.3 mg/dL Urine Creatinine (Albumin) March 24, 2018 12:59pm 14.64 mg/dL Urine Microalbumin/Creatinine Ratio March 24, 2018 12:59pm <=29 mg/g The ADA (Diabetes Care 26:S94-S98,2003) defines abnormalities in albumin excretion as follows: CATEGORY (RESULT mg/g CREATININE) Normal <30 Microalbuminuria 30-299 Clinical Albuminuria > sc=023 The ADA recommends that at least two of three specimens collected within a 3-6 month period be abnormal before considering a patient to be within a diagnostic category. Sodium Level April 27, 2017 5:21am 139 mmol/L 135-146 Potassium Level April 27, 2017 5:21am 4.1 mmol/L 3.5-5.0 Chloride Level April 27, 2017 5:21am 98 mmol/L 98-110 Carbon Dioxide Level April 27, 2017 5:21am 32.4 mmol/L High 19.0-30.0 Anion Gap April 27, 2017 5:21am 9 7-17 Glucose Level April 27, 2017 5:21am 105 mg/dL High 65-99 Blood Urea Nitrogen April 27, 2017 5:21am 43 mg/dL High 7-25 Creatinine April 27, 2017 5:21am 1.21 mg/dL High 0.60-0.88 Estimated GFR (Non- April 27, 2017 5:21am 41 Low 61- 72864 Units: mL/min/1.73m2) Estimated GFR () April 27, 2017 5:21am 48 Low 61-26979 Units: mL/min/1.73m2) BUN/Creatinine Ratio April 27, 2017 5:21am 36 High 7-25 Estimated GFR (Cockcroft-Gault) April 27, 2017 5:21am 31.81 ml/min 30 - Adjusted body weight used for calculation. Calculated Osmolality April 27, 2017 5:21am 299 mOSM/kg 280-300 Calcium Level April 27, 2017 5:21am 9.2 mg/dL 8.6-10.2 Magnesium Level April 27, 2017 5:21am 2.8 mg/dL High 1.5-2.5 Cholesterol Level April 27, 2017 5:21am 137 mg/dL 125-199 HDL Cholesterol April 27, 2017 5:21am 73 mg/dL 46- Triglycerides Level April 27, 2017 5:21am 26 mg/dL 0-149 <150 mg/dL=Normal 150-199 mg/dL=Borderline High 200-499 mg/dL=High >/=500 mg/dL=Very High LDL Cholesterol, Calculated April 27, 2017 5:21am 59 mg/dL Cholesterol/HDL Ratio April 27, 2017 5:21am 1.88 INTERPRETATION: LDL-Cholesterol Therapeutic Goal: <100 mg/dL if CHD is present <130 mg/dL if no CHD and 2 or more risk factors <160 mg/dL if no CHD Coronary Heart Disease (CHD) Risk Factors: 1+ Men >44 years 1+ Women >54 years 1+ Hypertension 1+ Current smoker 1+ Family history of premature CHD 1+ Diabetes mellitus 1+ HDL Cholesterol <40 mg/dL 1+ HDL cholesterol >59 mg/dL Non-HDL Cholesterol Calculated April 27, 2017 5:21am 64 mg/dl Interpretation: Non-HDL Cholesterol Goal: <130 mg/dl if CHD is present <160 mg/dl if no CHD and 2 or more risk factors <190 mg/dl if no CHD Creatine Kinase April 27, 2017 1:00am 206 U/L High 29-143 Creatine Kinase MB April 27, 2017 1:00am 2.0 ng/mL Creatine Kinase MB Relative Index April 27, 2017 1:00am 1 % Troponin T April 27, 2017 1:00am < 0.01 ng/mL Based on WHO criteria for the definition of AMI, the cutoff (clinical discriminator) value for troponin T is 0.1 ng/mL. Due to the release of kinetics of troponin T, a negative result within the first hours of the onset of symptoms does not rule out myocardial infarction with certainty. If suspected, repeat the test at appropriate intervals. Urine Microalbumin mg/dl July 27, 2017 9:40am 0.9 mg/dL Urine Creatinine (Albumin) July 27, 2017 9:40am 16.11 mg/dL Urine Microalbumin/Creatinine Ratio July 27, 2017 9:40am 56 mg/g High The ADA (Diabetes Care 26:S94-S98,2003) defines abnormalities in albumin excretion as follows: CATEGORY (RESULT mg/g CREATININE) Normal <30 Microalbuminuria 30-299 Clinical Albuminuria > bh=726 The ADA recommends that at least two of three specimens collected within a 3-6 month period be abnormal before considering a patient to be within a diagnostic category. Bedside Glucose April 26, 2017 9:26pm 123 mg/dL High 65-99 POINT-OF- CARE TESTING PERFORMED BY PERSONNEL OF: [address] [place] [address] Chief Complaint and Reason for Visit Encounter Admit Date Chief Complaint Reason for Visit Departed Physician/Provider Office Visit March 24, 2018 8:05am pancytopenia/ hx breast ca/neph appt today Hospital Discharge Instructions No known hospital discharge instructions. Hospital Discharge Medications Medication Dose Units Route Sig Qty Days Order Date Status Instructions Bumetanide 1 MG PO twice a day February 22, 2018 Active Bifidobacterium Infantis 4 MG PO daily February 22, 2018 Discontinued Isosorbide Mononitrate 10 MG PO daily February 22, 2018 Active Diclofenac Sodium 2 G Topical three times a day February 22, 2018 Active Carvedilol 6.25 mg PO twice a day 180 September 16, 2017 Active Bifidobacterium Infantis 4 MG PO daily March 24, 2018 Active Mupirocin Calcium 1 APPLIC Intranasal twice a day March 25, 2018 Active Ocuvite PO .QD March 25, 2018 Active Probiotic PO .QD March 25, 2018 Active Sennosides 8.6 MG PO three times a day PRN March 25, 2018 Active Cyanocobalamin (Vitamin B-12) 1000 MCG IM every month March 24, 2018 Active Anastrozole 1 MG PO daily December 20, 2008 Discontinued Aspirin (Aspirin 81 Mg) 81 MG PO daily December 21, 2008 Discontinued Docusate Sodium 200 MG PO three times a day December 21, 2008 Active Warfarin Sodium 2.5 MG PO every Wednesday, Wednesday, and Wednesday Discontinued Digoxin 250 MCG PO daily December 21, 2008 Discontinued Ferrous Sulfate 1 TAB PO daily December 21, 2008 Active Furosemide 10 MG PO daily December 21, 2008 Discontinued Hydrocodone Bit/Acetaminophen (Lortab 5/500 Tab) 1 - 2 TAB PO every 4 hours as needed December 21, 2008 Discontinued Levothyroxine Sodium 112 MCG PO daily December 21, 2008 Discontinued Multivitamins (Multivitamin*) 1 TAB PO daily December 21, 2008 Discontinued Potassium Chloride 103 MEQ PO daily December 21, 2008 Discontinued Warfarin Sodium 5 MG PO QT TH S WALKER December 21, 2008 Discontinued Anastrozole 1 MG PO daily December 26, 2008 Discontinued Anastrozole 1 MG PO daily April 24, 2009 Discontinued Ascorbic Acid 500 MG PO daily December 16, 2009 Discontinued Montelukast Sodium 20 MG PO DAILY WITH SUPPER December 16, 2009 Discontinued Simvastatin 20 MG PO daily December 16, 2009 Discontinued Zinc 50 MG PO daily December 16, 2009 Active Ascorbate Calcium 500 MG PO twice a day October 02, 2011 Active Levothyroxine Sodium 200 MCG PO daily October 02, 2011 Discontinued Lutein 6 MG PO daily October 02, 2011 Discontinued [place]-3 Fatty Acids 1 CAP PO daily October 02, 2011 Discontinued Potassium Chloride 20 MEQ PO daily October 02, 2011 Discontinued Warfarin Sodium 2 MG PO October 02, 2011 Discontinued Warfarin Sodium 3 MG PO daily October 02, 2011 Discontinued Anastrozole 1 MG PO daily December 21, 2011 Discontinued warfarin 5 MG PO daily January 14, 2012 Discontinued BRA 1 February 04, 2012 Discontinued Anastrozole 1 MG PO daily July 18, 2012 Discontinued Cholecalciferol (Vitamin D) 1000 UNIT PO daily September 02, 2012 Discontinued Anastrozole 1 MG PO daily February 21, 2013 Discontinued Mastectomy Bra MISCELL. July 12, 2013 Discontinued Mastectomy Prothesis (Mastectomy Prosthesis) MISCELL. July 12, 2013 Discontinued Anastrozole 1 MG PO daily August 14, 2013 Discontinued Cholecalciferol (Vitamin D) 5000 UNIT PO daily October 13, 2013 Discontinued Diphenhydramine Hcl 25 MG PO as needed October 13, 2013 Active Ipratropium/Albuterol Sulfate (Duoneb 0.5 mg-3 mg/3 ml Soln*) 3 ML INH four times daily PRN For SHORTNESS OF BREATH October 13, 2013 Active Vits A,C,E/Lutein/Minerals 1 TAB PO daily October 13, 2013 Discontinued Carboxymethylcellulose Sodium 1 DROPS BOTH EYES four times daily October 13, 2013 Discontinued Isosorbide Mononitrate (Imdur*) 15 MG PO every day at bedtime November 15, 2013 Discontinued Digoxin 125 MCG PO daily November 15, 2013 Discontinued Lisinopril 5 MG PO every day at bedtime November 15, 2013 Discontinued Warfarin Sodium 5 MG PO daily November 21, 2013 Discontinued Anastrozole 1 MG PO daily November 21, 2013 Discontinued Carvedilol 6.25 MG PO twice a day March 20, 2014 Discontinued Bumetanide 1 MG PO daily April 09, 2014 Discontinued Montelukast Sodium 10 MG PO daily April 09, 2014 Active Warfarin Sodium 5 MG PO DIRECTED April 09, 2014 Discontinued Take 1 tablet on Wednesday, Wednesday, Wednesday, Wednesday, and Wednesday and take 1 1/2 tablets on Wednesday and Lisinopril 5 MG PO twice a day April 09, 2014 Discontinued 5 MG= 1/2 TABLET Lisinopril 5 MG PO twice a day April 09, 2014 Discontinued 5 MG= 1/2 TABLET at bedtime Nitroglycerin 0.4 MG SL DIRECTED April 11, [address] one tab under tongue every 5 min up to 3 doses as needed for chest pain. If chest pain not resolved, to ER/911 Lisinopril 10 MG PO daily April 30, 2014 Discontinued Bumetanide 1.5 MG PO twice a day May 31, 2014 Discontinued Lisinopril 10 MG PO daily June 19, 2014 Discontinued Spironolactone 25 MG PO daily June 19, 2014 Discontinued Famotidine 20 MG PO every day at bedtime June 19, 2014 Discontinued Spironolactone 12.5 MG PO daily 45 June 19, 2014 Discontinued 12.5mg=1/2 tab take 1/2 tab daily Lisinopril 5 MG PO daily 15 September 28, 2014 Discontinued Warfarin Sodium 6 MG PO DIRECTED October 16, 2014 Discontinued Carvedilol 6.25 MG PO twice a day 180 December 17, 2014 Discontinued Cephalexin 500 MG PO three times a day 0 December 19, 2014 Discontinued Lisinopril 5 MG PO daily July 08, 2015 Discontinued Lisinopril 5 MG PO daily July 08, 2015 Discontinued 5mg=1/2 tab daily. Pantoprazole Sodium 40 MG PO twice a day 60 July 16, 2015 Active Spironolactone 12.5 MG PO daily 45 August 15, 2015 Discontinued 12.5mg=1/2 tab take 1/2 tab daily Carvedilol 6.25 MG PO twice a day 180 September 23, 2015 Discontinued Lorazepam 1 MG PO DIRECTED December 04, 2015 Discontinued take 1mg po 1 hr prior to procedure Lisinopril 5 MG PO every day at bedtime 45 January 21, 2016 Discontinued Cyanocobalamin (Cyanocobalamin 1000MCG\Ml*) 1000 MCG IM Monthly February 06, 2016 Discontinued Lisinopril 5 MG PO every day at bedtime May 12, 2016 Discontinued Spironolactone 12.5 MG PO daily August 21, 2016 Discontinued 12.5mg=1/2 tab take 1/2 tab daily Sucralfate 1 GM PO four times daily 0 August 28, 2016 Active Levothyroxine Sodium 150 MCG PO daily 0 August 28, 2016 Active Carvedilol 6.25 mg PO twice a day 180 September 18, 2016 Discontinued Blood Sugar Diagnostic 1 PACKET SQ twice a day 0 November 19, 2016 Active Blood Sugar Diagnostic (One Touch Ultra Test Strips) 1 STRIP TP twice a day 100 November 19, 2016 Active Folic Acid 1 MG PO daily November 19, 2016 Active Hydrocodone/Acetaminophen 1 TAB PO every 6 hours as needed PRN For PAIN 40 November 19, 2016 Active Lisinopril 5 MG PO daily 15 November 19, 2016 Discontinued Misc Items (Oxygen) 2 L NA hs and prn when@rest 0 November 19, 2016 Active Polyethylene Glycol 3350 17 GM PO every other day 1 November 19, 2016 Active Simethicone 80 MG PO three times a day 0 November 19, 2016 Active Vit C/Vit E/Lutein/Min/[place]-3 1 CAP PO daily 0 December 02, 2016 Active Warfarin Sodium 5 MG PO daily 30 December 02, 2016 Discontinued Psyllium Husk 1 TSP PO every other day 0 April 26, 2017 Active Acetaminophen 500 MG PO every 4 hours PRN For MILD PAIN 90 April 27, 2017 Active Spironolactone 12.5 MG PO daily 45 May 31, 2017 Active 12.5mg=1/ 2 tab take 1/2 tab daily AQUAGEL W/02 1 TAB PO daily 0 July 27, 2017 Active Vitamin E 180 UNIT PO daily 0 July 27, 2017 Discontinued Bumetanide 1 MG PO daily 90 September 09, 2017 Discontinued Potassium Chloride 40 MEQ PO daily 120 September 09, 2017 Discontinued 40meq=4 tablets Carboxymethylcellulose Sodium 1 DRP ophthalmic (eye) three times a day 0 March 25, 2018 Active Warfarin Sodium 5 MG PO .AD 30 March 25, 2018 Active Encounters Encounter Facility Location Admit/Visit Date Discharge/Departure Date Attending Provider Registered Clinical NEPH Patient Bill March 24, 2018 12: 59pm Ivy, Bed Departed Physician/Provider Office Visit [facility] March 24, 2018 9:23am March 24, 2018 10:10am Ivy, Bed Departed Physician/Provider Office Visit [facility] March 24, 2018 8:05am March 25, 2018 4:20pm Luis Felipe Brown Registered Inpatient [facility] March 22, 2018 8:38am Luis Felipe Brown Registered Inpatient [facility] March 15, 2018 8:46am Luis Felipe Brown Registered Inpatient [facility] March 08, 2018 7:55am Luis Felipe Brown Departed Physician/Provider Office Visit [facility] [place] February 22, 2018 2:09pm February 23, 2018 9:43am Luis Felipe Brown Departed Physician/Provider Office Visit [facility] February 15, 2018 2:17pm February 15, 2018 2:30pm Julee Chung Registered Referred [facility] January 27, 2018 11:17am Glenn Ruiz Registered Inpatient [facility] January 27, 2018 12 :00am Casey Craigjohnathan Registered Inpatient [facility] January 26, 2018 11:59pm Luis Felipe Brown Registered Inpatient [facility] January 24, 2018 11 :59pm Antwan Godinez Registered Inpatient [facility] January 18, 2018 12: 00am Antwan Godinez Registered Inpatient [facility] December 29, 2017 11:59pm Luis Felipe Brown Registered Inpatient [facility] December 01, 2017 11:59pm Luis Felipe Brown Registered Inpatient [facility] November 03, 2017 11:59pm Luis Felipe Brown Departed [facility] October 29, 2017 9:50am October 29, 2017 11:00pm Luis Felipe Brown Registered Inpatient [facility] October 25, 2017 4:02pm Julieta Guzman Registered Inpatient [facility] October 08, 2017 12:00am Antwan Godinez Registered Inpatient [facility] September 11:59pm Luis Felipe Brown Registered Inpatient [facility] September 16, 2017 11:59pm Remberto King Registered Physician/Provider Office Visit [facility] September 09, 2017 10:00am Remberto King Registered Physician/Provider Office Visit [facility] Oncology [facility] August 24, 2017 10:30am [facility] July 27, 2017 11 :40am July 27, 2017 Ivy, Mohsen Registered Physician/Provider Office Visit [facility] July 27, 2017 10:40am Ivy, Bed Departed [facility] July 22, 2017 9:45am July 22, 2017 Remberto Knig Registered Physician/Provider Office Visit [facility] July 06, 2017 11:45am Remberto King Discharged Inpatient Card[facility] Progressive Care Unit April 26, 2017 2:40pm April 27, 2017 1:00pm Yolis Waggoner Functional Status No known functional status. Immunizations No known immunizations. Payers Payer Name Policy Type Covered Libertarian Covered Libertarian Id Relationship Subscriber Subscriber Id Medicaid TXIX Other [id number] Self / Same As Patient [id number] Medicare Medicare [id number] Self / Same As Patient [id number] Self Pay Other [employer] Medicare [id number] Self / Same As Patient [id number] Plan of Care No Known Plan of Care Information Social History No known social history. Vital Signs Vital Reading Result Reference Range Collection Date/Time Height 5 ft 3 in March 24, 2018 8:18am Weight 148 lb 8 oz March 24, 2018 9:40am Temperature 98.6 F 97.6 F-99.6 F March 24, 2018 8:18am Pulse 60 BPM 60-90 March 24, 2018 9:40am Respiration 18 RPM 12-24 March 24, 2018 8:18am Pulse Oximetry 93 % 93-100 March 24, 2018 9:40am Blood Pressure Systolic 118 100-180 March 24, 2018 9:50am Blood Pressure Diastolic 54 60-90 March 24, 2018 9:50am Body Mass Index 26.7 March 24, 2018 8:18am
--- OUTSIDE RECORDS SUMMARY | 2018-12-08 01:19 | XMS REPORT | Continuity of Care Document ---
Author Author [facility] Organization [facility] Address [address] [place] [address] Care Team Providers Care Avid Editor Name Role Phone Toyin Harris PCP Ivy, Bed Attphys Toyin Harris PCP Joontnikki, Bed Attphys Allergies, Adverse Reactions, Alerts Allergen Type [...] Hcl [Benadryl] 25 MG PO as needed October 13, 2013 Active Ipratropium/Albuterol Sulfate (Duoneb 0.5 mg-3 mg/3 ml Soln*) 3 ML INH four times daily PRN For SHORTNESS OF BREATH October 13, 2013 Active Montelukast Sodium [Singulair] [...] [Carafate] 1 GM PO four times daily August 28, 2016 Active Levothyroxine Sodium [Synthroid] 150 MCG PO daily August 28, 2016 Active Blood Sugar Diagnostic [Prodigy No Coding] 1 PACKET SQ twice a day November 19, 2016 Active Blood Sugar Diagnostic (One Touch Ultra Test Strips) 1 STRIP TP twice a day 100 November 19, 2016 Active Folic Acid 1 MG PO daily November 19, 2016 Active Hydrocodone/Acetaminophen [[place] 5-325 Tablet] 1 TAB PO every 6 hours as needed PRN For PAIN 40 November 19, 2016 Active Misc Items (Oxygen) 2 L NA hs and prn when@rest November 19, 2016 Active Polyethylene Glycol 3350 [Miralax] 17 GM PO every other day November Active Simethicone 80 MG PO three times a day November 19, 2016 Active Vit C/Vit E/Lutein/Min/[place]-3 [Ocuvite Softgel] 1 CAP PO daily December 02, 2016 Active Psyllium Husk [Metamucil] 1 TSP PO every other day April 26, 2017 Active Acetaminophen [Mapap] 500 MG PO every 4 hours PRN For MILD PAIN April 27, 2017 Active Spironolactone 12.5 MG PO daily May 31, 2017 Active 12.5mg=1/ 2 tab take 1/2 tab daily AQUAGEL W/02 1 TAB PO daily July 27, 2017 Active Carboxymethylcellulose Sodium [Thera Tears] 1 DRP ophthalmic (eye) three times a day March 25, 2018 Active Warfarin Sodium 5 MG PO .AD 30 March 25, 2018 Active Discontinued Medications Medication Dose Units Route Sig Qty Days Start Date Discontinued Date Status Instructions Bifidobacterium Infantis [Align] 4 MG PO daily February 22, 2018 March 24, 2018 Discontinued Anastrozole [Arimidex] 1 MG PO daily December 20, 2008 December 26, 2008 Discontinued Aspirin (Aspirin 81 Mg) 81 MG PO daily December 21, 2008 July 16, 2015 Discontinued Warfarin Sodium [Coumadin] 2.5 MG PO every Wednesday, Wednesday, and WednesdayDecember 21, 2008 October 02, 2011 Discontinued Digoxin [Lanoxin] 250 MCG PO daily December 21, 2008 November 15, 2013 Discontinued Furosemide 10 MG PO daily December 21, 2008 April 09, 2014 Discontinued Hydrocodone Bit/Acetaminophen (Lortab 5/500 Tab) 1 - 2 TAB PO every 4 hours as needed December 21, 2008 January 26, 2017 Discontinued Levothyroxine Sodium [Synthroid] 112 MCG PO daily December 21, 2008 October 02, 2011 Discontinued Multivitamins (Multivitamin*) 1 TAB PO daily December 21, 2008August Discontinued Potassium Chloride 103 MEQ PO daily December 21, 2008 September 02, 2012 Discontinued Warfarin Sodium [Coumadin] 5 MG PO QT TH S WALKER December 21, 2008 October 02, 2011 Discontinued Anastrozole [Arimidex] 1 MG PO daily December 26, 2008 April 24, 2009 Discontinued Anastrozole [Arimidex] 1 MG PO daily April 24, 2009 December 21, 2011 Discontinued Ascorbic Acid [Vitamin C] 500 MG PO daily December 16, 2009 October 02, 2011 Discontinued Montelukast Sodium [Singulair] 20 MG PO DAILY WITH SUPPER December 16, 2009 April 09, 2014 Discontinued Simvastatin 20 MG PO daily December 16, 2009 June 11, 2015 Discontinued Levothyroxine Sodium 200 MCG PO daily 0 October 02, 2011September Discontinued Lutein 6 MG PO daily 0 October 02, 2011 October 13, 2013 Discontinued [place]-3 Fatty Acids [[place]-3] 1 CAP PO daily 0 October 02, 2011 October 13, 2013 Discontinued Potassium Chloride 20 MEQ PO daily October 02, 2011 January 14, 2012 Discontinued Warfarin Sodium [Coumadin] 2 MG PO October 02, 2011 January 14, 2012 Discontinued Warfarin Sodium [Coumadin] 3 MG PO daily 30 October 02, 2011December Discontinued Anastrozole [Arimidex] 1 MG PO daily December 21, 2011 July 18, 2012 Discontinued warfarin 5 MG PO daily January 14, 2012 November 21, 2013 Discontinued BRA 1 February 04, 2012 October 13, 2013 Discontinued Anastrozole [Arimidex] 1 MG PO daily 30 July 18, 2012 February 21, 2013 Discontinued Cholecalciferol (Vitamin D) 1000 UNIT PO daily 0 September 02, 2012 October 13, 2013 Discontinued Anastrozole [Arimidex] 1 MG PO daily 30 February 21, 2013 August 14, 2013 Discontinued Mastectomy Bra MISCELL. 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 Ref. Range Result Comment Bedside Urine Clarity March 24, 2018 9:57am CLEAR (N=CLEAR) Bedside Urine Color (LAB) March 24, 2018 9:57am STRAW (N=CLEAR) Bedside Urine Specific [place] (LAB March 24, 2018 9:57am 1.005(N=1.000- 1.025 [...] Normal <30 Microalbuminuria 30-299 Clinical Albuminuria > br=164 The ADA recommends that at least two [...] April 27, 2017 5:21am 41 Low 61- 60422 Units: mL/min/1.73m2) Estimated GFR () April 27, 2017 5:21am 48 Low 61-10254 Units: mL/min/1.73m2) BUN/Creatinine Ratio April 27, 2017 [...] Normal <30 Microalbuminuria 30-299 Clinical Albuminuria > id=139 The ADA recommends that at least two of three specimens collected within a 3-6 month period be abnormal before considering a patient to be within a diagnostic category. Bedside Glucose April 26, 2017 9:26pm 123 mg/dL High 65-99 POINT-OF- CARE TESTING PERFORMED BY PERSONNEL OF: [address] [place] [address] Chief Complaint and Reason for Visit Encounter Admit Date Chief Complaint Reason for Visit Departed Physician/Provider Office Visit March 24, 2018 9:23am CKD Hospital Discharge Instructions No known hospital discharge [...] MG PO daily October 02, 2011 Discontinued [place]-3 Fatty Acids 1 CAP PO daily October 02, 2011 Discontinued Potassium Chloride 20 MEQ PO daily October 02, 2011 Discontinued Warfarin Sodium 2 MG PO October 02, 2011 Discontinued Warfarin Sodium 3 MG PO daily October 02, 2011 Discontinued Anastrozole 1 MG PO daily December 21, 2011 Discontinued warfarin 5 MG PO daily January 14, 2012 Discontinued BRA February 04, 2012 Discontinued Anastrozole 1 MG PO daily July 18, 2012 Discontinued Cholecalciferol (Vitamin D) 1000 UNIT PO daily 0 September 02, 2012 Discontinued Anastrozole 1 MG PO daily February 21, 2013 Discontinued Mastectomy Bra MISCELL. July 12, 2013 Discontinued Mastectomy Prothesis (Mastectomy Prosthesis) MISCELL. July 12, 2013 Discontinued Anastrozole 1 MG PO daily August 14, 2013 Discontinued Cholecalciferol (Vitamin D) 5000 UNIT PO daily 0 October 13, 2013 Discontinued Diphenhydramine Hcl 25 [...] Lisinopril 5 MG PO twice a day 60 April 09, 2014 Discontinued 5 MG= 1/2 [...] MG PO daily 90 June 19, 2014 Discontinued Famotidine 20 MG PO every day at bedtime June 19, 2014 Discontinued Spironolactone 12.5 MG PO daily 45 June 19, 2014 Discontinued 12.5mg=1/2 tab take 1/2 tab daily Lisinopril 5 MG PO daily September 28, 2014 Discontinued Warfarin Sodium 6 [...] 0 November 19, 2016 Active Vit C/Vit E/Lutein/Min/[place]-3 1 CAP PO daily 0 December 02, [...] Active Warfarin Sodium 5 MG PO .AD March 25, 2018 Active Encounters Encounter Facility Location Admit/Visit Date Discharge/Departure Date Attending Provider Registered Clinical [facility] NEPH Patient Bill March 24, 2018 12: 59pm Ivy, Bed Departed Physician/Provider Office Visit [facility] March 24, 2018 9:23am March [...] Luis Felipe Brown Departed Physician/Provider Office Visit [facility] [place] February 22, 2018 2:09pm February 23, 2018 9:43am Luis Felipe Brown Departed Physician/Provider Office Visit [facility] [place] February 15, 2018 2:17pm February 15, 2018 2:30pm Julee Chung Registered Referred [facility] January 27, 2018 11:17am Glenn Ruiz Registered Inpatient [facility] January 27, 2018 12 :00am RafaCaseyjohnathan Registered Inpatient [facility] January 26, 2018 11:59pm Luis Felipe Brown Registered Inpatient [facility] January 24, 2018 11 :59pm Antwan Godinez Registered Inpatient [facility] January 18, 2018 12: 00am Antwan Godinez Registered Inpatient [facility] December 29, 2017 11:59pm Luis Felipe Brown Registered Inpatient [facility] December 01, 2017 11:59pm Lusi Felipe Brown Registered Inpatient [facility] November 03, 2017 11:59pm Luis Felipe Brown [facility]arted [facility] October 29, 2017 9:50am October 29, 2017 11:00pm Luis Felipe Brown Registered Inpatient [facility] October 25, 2017 4:02pm Julieta Guzman Registered Inpatient [facility] October 08, 2017 12:00am Antwan Godinez Registered Inpatient [facility] September 11:59pm Luis Felipe Brown Registered Inpatient [facility] September 16, 2017 11:59pm Remberto King Registered Physician/Provider Office Visit [facility] September 09, 2017 10:00am Remberto King Registered Physician/Provider Office Visit [facility] On[facility] August 24, 2017 10:30am [facility] Bill July 27, 2017 11 :40am July 27, 2017 Ivy, Mohsen Registered Physician/Provider Office Visit [facility] July 27, 2017 10:40am Ivy, Bed Departed [facility] July 22, 2017 9:45am July 22, 2017 Remberto King Registered Physician/Provider Office Visit [facility] July 06, 2017 11:45am Remberto King Discharged Inpatient [facility] Cardiac Progressive Care Unit April 26, 2017 2:40pm April 27, 2017 1:00pm Yolis Waggoner Functional Status No known functional status. Immunizations No known immunizations. Payers Payer Name Policy Type Covered Libertarian Covered Libertarian Id Relationship Subscriber Subscriber Id Medicaid TXIX Other [id number] Self / Same As Patient [id number] Medicare Medicare [id number] Self / Same As Patient [id number] Self Pay Other [facility] Medicare Solutions Medicare [id number] Self / Same As Patient [id number] Plan of Care No Known Plan of [...]
--- OUTSIDE RECORDS SUMMARY | 2018-12-08 01:20 | XMS REPORT | Continuity of Care Document ---
Author Author [facility] Organization [facility] Address [address] [place] [address] Care Team Providers Care Retail Support Manager Name Role Phone Toyin Harris PCP Luis [...] PO daily November 19, 2016 Active Hydrocodone/Acetaminophen [[place] 5-325 Tablet] 1 TAB PO every 6 hours as needed PRN For PAIN 40 November 19, 2016 Active Misc Items (Oxygen) 2 L NA hs and prn when@rest 0 November 19, 2016 Active Polyethylene Glycol 3350 [Miralax] 17 GM PO every other day November Active Simethicone 80 MG PO three times a day November 19, 2016 Active Vit C/Vit E/Lutein/Min/[place]-3 [Ocuvite Softgel] 1 CAP PO daily December [...] October 02, 2011 October 13, 2013 Discontinued [place]-3 Fatty Acids [[place]-3] 1 CAP PO daily 0 October 02, [...] 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 Ref. Range Result Comment Bedside Urine Clarity March 24, 2018 9:57am CLEAR (N=CLEAR) Bedside Urine Color (LAB) March 24, 2018 9:57am STRAW (N=CLEAR) Bedside Urine Specific [place] (LAB March 24, 2018 9:57am 1.005(N=1.000- 1.025 [...] Normal <30 Microalbuminuria 30-299 Clinical Albuminuria > vj=333 The ADA recommends that at least two [...] April 27, 2017 5:21am 41 Low 61- 20920 Units: mL/min/1.73m2) Estimated GFR () April 27, 2017 5:21am 48 Low 61-49501 Units: mL/min/1.73m2) BUN/Creatinine Ratio April 27, 2017 [...] Normal <30 Microalbuminuria 30-299 Clinical Albuminuria > gq=041 The ADA recommends that at least two of three specimens collected within a 3-6 month period be abnormal before considering a patient to be within a diagnostic category. Bedside Glucose April 26, 2017 9:26pm 123 mg/dL High 65-99 POINT-OF- CARE TESTING PERFORMED BY PERSONNEL OF: [address] [place] [address] Chief Complaint and Reason for Visit Encounter [...] MG PO daily October 02, 2011 Discontinued [place]-3 Fatty Acids 1 CAP PO daily October [...] MG PO daily 45 August 21, 2016 Discontinued 12.5mg=1/2 tab take [...] 3350 17 GM PO every other day November 19, 2016 Active Simethicone 80 MG PO three times a day 0 November 19, 2016 Active Vit C/Vit E/Lutein/Min/[place]-3 1 CAP PO daily 0 December 02, [...] Date Discharge/Departure Date Attending Provider Registered Clinical [facility] NEPH Patient Bill March 24, 2018 12: 59pm Ivy, Bed Departed Physician/Provider Office Visit [facility] Nephrology Cntr [facility] March 24, 2018 9:23am March 24, 2018 10:10am Ivy, Bed Departed Physician/Provider Office Visit [facility] Oncology [facility] March 24, 2018 8:05am March 25, 2018 4:20pm Luis Felipe Brown Registered Inpatient [facility] March 22, 2018 8:38am Luis Felipe Brown Registered Inpatient [facility] March 15, 2018 8:46am Luis Felipe Brown Registered Inpatient [facility] March 08, 2018 7:55am Luis Felipe Brown Departed Physician/Provider Office Visit [facility] Oncology [facility] [place] February 22, 2018 2:09pm February 23, 2018 9:43am Luis Felipe Brown Departed Physician/Provider Office Visit [facility] February 15, 2018 2:17pm February 15, 2018 2:30pm Julee Chung Registered Referred [facility] January 27, 2018 11:17am Glenn Ruiz Registered Inpatient [facility] January 27, 2018 12 :00am Sagrario Craig Registered Inpatient [facility] Medical Oncology [facility] January 26, 2018 11:59pm Luis Felipe Brown Registered Inpatient [facility] January 24, 2018 11 :59pm Antwan Godinez Registered Inpatient [facility] January 18, 2018 12: 00am Antwan Godinez Registered Inpatient [facility] December 29, 2017 11:59pm Luis Felipe Brown Registered Inpatient [facility] December 01, 2017 11:59pm Luis Felipe Brown Registered Inpatient [facility] November 03, 2017 11:59pm Luis Felipe Brown Departed [facility] Mammography October 29, 2017 9:50am October 29, 2017 11:00pm Luis Felipe Brown Registered Inpatient [facility] October 25, 2017 4:02pm Julieta Guzman Registered Inpatient [facility] October 08, 2017 12:00am Antwan Godinez Registered Inpatient [facility] Medical Oncology [facility] September 11:59pm Luis Felipe Brown Registered Inpatient [facility] September 16, 2017 11:59pm Remberto King Registered Physician/Provider Office Visit [facility] September 09, 2017 10:00am Remberto King Registered Physician/Provider Office Visit [facility] Oncology [facility] August 24, 2017 10:30am [facility] Bill July 27, 2017 11 :40am July 27, 2017 Ivy, Mohsen Registered Physician/Provider Office Visit [facility] Nephrology Cn[facility] July 27, 2017 10:40am Ivy, Bed Departed [facility] July 22, 2017 9:45am July 22, 2017 Remberto King Registered Physician/Provider Office Visit [facility] July 06, 2017 11:45am Remberto King Discharged Inpatient [facility] Cardiac Progressive Care Unit April 26, 2017 2:40pm April 27, 2017 1:00pm Yolis Waggoner Functional Status No known functional status. Immunizations No known immunizations. Payers Payer Name Policy Type Covered Alliance Party Covered Alliance Party Id Relationship Subscriber Subscriber Id Medicaid TXIX Other [id number] Self / Same As Patient [id number] Medicare Medicare [id number] Self / Same As Patient [id number] Self Pay Other [facility] Medicare [facility] Medicare [id number] Self / Same As Patient [id number] Plan of Care No Known Plan of [...]
--- NOTE | 2018-12-08 01:21 | ED Fall/Injury ---
General Chief Complaint: Trauma-Non Activation Stated Complaint: FALL Source: patient, EMS, EMS notes reviewed Exam Limitations: no limitations History of Present Illness Date Seen by Provider: Dec 08, 2018 Time Seen by Provider: 00:58 Initial Comments [facility] with chief complaint she was on the toilet stood up to get up on her own without assistance and fell forward onto her face. She is on warfarin history of atrial fibrillation. She has what appears to be swollen nasal bridge. She denies loss of consciousness nausea vomiting dysuria fever chills cough shortness of breath abdominal pain diarrhea or constipation. She received Tylenol from the staff at the longterm and does not require anything further at this time. Allergies and Home Medications Allergies Coded Allergies: ciprofloxacin (Verified Allergy, Unknown, 12/08/18) diazepam (Verified Allergy, Unknown, 12/08/18) sulfamethoxazole (Verified Allergy, Unknown, 12/08/18) trimethoprim (Verified Allergy, Unknown, 12/08/18) Patient Home Medication List Home Medication List Reviewed: Yes Review of Systems Review of Systems Constitutional: No chills, No diaphoresis Eyes: Denies Blindness, Denies Blurred Vision Ears, Nose, Mouth, Throat: denies ear pain, denies ear discharge Respiratory: No cough, No dyspnea on exertion Cardiovascular: No chest pain, No edema Past Rekxopc-Zneyuu-Jotcbu Hx Patient Social History Alcohol Use: Denies Use Recreational Drug Use: No Smoking Status: Never a Smoker Recent Foreign Travel: No Contact w/Someone Who Travel: No Physical Exam Vital Signs Vital Signs - First Documented 12/08/18 01:09 Temp 96.9 Pulse 60 Resp 22 B/P (MAP) 106/47 (66) Pulse Ox 96 O2 Delivery Nasal Cannula O2 Flow Rate 2.00 Capillary Refill : Height, Weight, BMI Height: '" Weight: lbs. oz. kg; BMI Method: General Appearance: WD/WN, no apparent distress HEENT: PERRL/EOMI, TMs normal, pharynx normal, other (Jtzb-de-xiojieoe hematoma over the nasal bridge) Neck: non-tender, supple, normal inspection, other (c-collar in place) Cardiovascular: normal peripheral pulses, regular rate, rhythm, no edema Respiratory: no respiratory distress, no accessory muscle use, decreased breath sounds, wheezing (few) Gastrointestinal: normal bowel sounds, non tender, soft Extremities: normal inspection, other (no deformity or ecchymoses but there is some tenderness to palpation over the left clavicle, acromioclavicular joint, glenohumeral joint.) Neurologic/Psychiatric: celery wrapper II-XII nml as tested, no motor/sensory deficits, alert, normal mood/affect, oriented x 3 Skin: normal color, warm/dry, other (small skin tear on the dorsum of the left hand that is been dressed with a single Steri-Strip and is intact, clean, dry and instead. Multiple ecchymoses of varying ages.) [place] Coma Score Best Eye Response: (4) Open Spontaneously Best Verbal Response: (5) Oriented Best Motor Response: (6) Obeys Commands Jaxson Total: 15 Progress/Results/Core Measures Results/Orders Lab Results Laboratory Tests Test 12/08/18 01:30 Range/Units White Blood Count 3.1 L 4.3-11.0 10^3/uL Red Blood Count 2.36 L 4.35-5.85 10^6/uL Hemoglobin 7.2 L 11.5-16.0 G/DL Hematocrit 24 L 35-52 % Mean Corpuscular Volume 100 H 80-99 FL Mean Corpuscular Hemoglobin 31 25-34 PG Mean Corpuscular Hemoglobin Concent 30 L 32-36 G/DL Red Cell Distribution Width 17.4 H 10.0-14.5 % Platelet Count 98 L 130-400 10^3/uL Mean Platelet Volume 10.3 7.4-10.4 FL Neutrophils (%) (Auto) 77 H 42-75 % Lymphocytes (%) (Auto) 9 L 12-44 % Monocytes (%) (Auto) 12 0-12 % Eosinophils (%) (Auto) 2 0-10 % Basophils (%) (Auto) 0 0-10 % Neutrophils # (Auto) 2.4 1.8-7.8 X 10^3 Lymphocytes # (Auto) 0.3 L 1.0-4.0 X 10^3 Monocytes # (Auto) 0.4 0.0-1.0 X 10^3 Eosinophils # (Auto) 0.1 0.0-0.3 10^3/uL Basophils # (Auto) 0.0 0.0-0.1 10^3/uL Prothrombin Time 32.5 H 12.2-14.7 SEC INR Comment 3.0 H 0.8-1.4 Activated Partial Thromboplast Time 38 H 24-35 SEC Sodium Level 136 135-145 MMOL/L Potassium Level 5.5 H 3.6-5.0 MMOL/L Chloride Level 96 L 98-107 MMOL/L Carbon Dioxide Level 30 21-32 MMOL/L Anion Gap 10 5-14 MMOL/L Blood Urea Nitrogen 47 H 7-18 MG/DL Creatinine 1.87 H 0.60-1.30 MG/DL Estimat Glomerular Filtration Rate 26 BUN/Creatinine Ratio 25 Glucose Level 111 H 70-105 MG/DL Calcium Level 9.5 8.5-10.1 MG/DL Corrected Calcium 9.8 8.5-10.1 MG/DL Total Bilirubin 0.7 0.1-1.0 MG/DL Aspartate Amino Transf (AST/SGOT) 37 H 5-34 U/L Alanine Aminotransferase (ALT/SGPT) 27 0-55 U/L Alkaline Phosphatase 100 40-136 U/L Total Protein 6.5 6.4-8.2 GM/DL Albumin 3.6 3.2-4.5 GM/DL My Orders Orders - RIAN ARROYO Ct Head/Face/Cervical Wo (12/08/18 01:14) Ed Iv/Invasive Line Start (12/08/18 01:14) Chest 1 View, Ap/Pa Only (12/08/18 01:14) Shoulder, Left, 3 Views (12/08/18 01:14) Cbc With Automated Diff (12/08/18 01:14) Comprehensive Metabolic Panel (12/08/18 01:14) Protime With Inr (12/08/18 01:14) Partial Thromboplastin Time (12/08/18 01:14) Albuterol/Ipra Inhalation Soln (Duoneb I (12/08/18 01:27) Albuterol/Ipra Inhalation Soln (Duoneb I (12/08/18 01:45) Svn Small Volume Nebulizer (12/08/18 01:31) Fentanyl Injection (Sublimaze Injection (12/08/18 01:45) Ondansetron Injection (Zofran Injectio (12/08/18 02:30) Medications Given in ED Current Medications Medications Dose Ordered Sig/Minal Route Start Time Stop Time Status Last Admin Dose Admin Albuterol/ Ipratropium 3 ml ONCE ONCE INH 12/08/18 01:45 12/08/18 01:46 DC 12/08/18 01:32 3 ML Fentanyl Citrate 50 mcg ONCE ONCE IVP 12/08/18 01:45 12/08/18 01:46 DC 12/08/18 01:41 50 MCG Ondansetron HCl 8 mg ONCE ONCE IVP 12/08/18 02:30 12/08/18 02:31 DC 12/08/18 02:25 8 MG Vital Signs/I&O 12/08/18 12/08/18 01:09 01:32 Temp 96.9 Pulse 60 Resp 22 B/P (MAP) 106/47 (66) Pulse Ox 96 96 O2 Delivery Nasal Cannula Nasal Cannula O2 Flow Rate 2.00 2.00 Progress Progress Note #1: Time: 01:18 Progress Note DuoNeb, basic labs and CT the head and neck face with a chest x-ray 1 view and a left shoulder x-ray. Progress Note #2: Time: 02:44 Progress Note The patient states that her pancytopenia is known and being managed outpatient. We've put her in a sling and gave her some fentanyl which resulted in some nausea and vomiting. Give her some Zofran which nausea vomiting. She now taking some sips of water. Diagnostic Imaging Diagonstic Imaging: Xray Plain Films/CT/US/NM/MRI: chest (one view) Comments Unchanged interstitial appearance. Without new infiltrate. Reviewed: Reviewed by Me Diagonstic Imaging: Xray Plain Films/CT/US/NM/MRI: other (left shoulder) Reviewed: Reviewed by Me Diagonstic Imaging: CT (without contrast) Plain Films/CT/US/NM/MRI: facial bones, c-spine, head Reviewed: Reviewed Night [facility] Study, Reviewed by Me Departure Impression Primary Impression: Fall Qualified Codes: W19.XXXA - Unspecified fall, initial encounter Additional Impressions: Hematoma Skin tear of left hand without complication Qualified Codes: S61.412A - Laceration without foreign body of left hand, initial encounter Pancytopenia Proximal humeral fracture Qualified Codes: S42.202A - Unspecified fracture of upper end of left humerus , initial encounter for closed fracture Disposition: HOME, SELF-CARE Condition: Stable Departure-Patient Inst. Decision time for Depature: 02:50 Referrals: BRANDY HUTCHINSON DO Patient Instructions: Shoulder Fracture (DC) Add. Discharge Instructions: Please wear the sling and use the Tylenol 1000 mg every 8 hours in addition to ibuprofen 800 and tramadol one one tablet every 6 hours as needed for breakthrough pain. Follow up [address] Hutchinson, orthopedic surgery. All discharge instructions reviewed with patient and/or family. Voiced understanding. Scripts Tramadol HCl (Tramadol HCl) 50 Mg Tablet 50 MG PO Q6H PRN for PAIN, #20 TAB 0 Refills Prov: RIAN ARROYO 12/08/18 Copy Copies To 1: BRANDY HUTCHINSON DO RIAN ARROYO Dec 08, 2018 01:21
--- OUTSIDE RECORDS SUMMARY | 2018-12-08 01:21 | XMS REPORT | Continuity of Care Document ---
Author Author [facility] Organization [facility] Address [address] [place] [address] Care Team Providers Care Fashion Designer Name Role Phone Toyin Hraris PCP Ivy, Bed Attphys Toyin Harris PCP Ivy, Bed Attphys Allergies, Adverse Reactions, Alerts Allergen [...] MG PO daily March 24, 2018 Active Cyanocobalamin (Vitamin B-12) [Vitamin B-12] [...] OF BREATH 90 October 13, 2013 Active Carboxymethylcellulose Sodium [Thera Tears] 1 DROPS BOTH EYES four times daily 0 October 13, 2013 Active Montelukast Sodium [Singulair] [...] Coding] 1 PACKET SQ twice a day 0 November 19, 2016 Active Blood Sugar Diagnostic (One Touch Ultra Test Strips) 1 STRIP TP twice a day 100 November 19, 2016 Active Folic Acid 1 MG PO daily November 19, 2016 Active Hydrocodone/Acetaminophen [[place] 5-325 Tablet] 1 TAB PO every 6 hours as needed PRN For PAIN 40 November 19, 2016 Active Misc Items (Oxygen) 2 L NA hs and prn when@rest November 19, 2016 Active Polyethylene Glycol 3350 [Miralax] 17 GM PO every other day November Active Simethicone 80 MG PO three times a day November 19, 2016 Active Vit C/Vit E/Lutein/Min/[place]urn-3 [Ocuvite Softgel] 1 CAP PO daily December 02, 2016 Active Warfarin Sodium 5 MG PO daily December 02, 2016 Active Psyllium Husk [Metamucil] 1 TSP PO every other day April 26, 2017 Active Acetaminophen [Mapap] 500 MG PO every 4 hours PRN For MILD PAIN April 27, 2017 Active Spironolactone 12.5 MG PO daily May 31, 2017 Active 12.5mg=1/ 2 tab take 1/2 tab daily AQUAGEL W/02 1 TAB PO daily July 27, 2017 Active Vitamin E 180 UNIT PO daily July 27, 2017 Active Discontinued Medications Medication Dose Units Route [...] 2013 Discontinued Furosemide 10 MG PO daily 30 December 21, 2008 April 09, 2014 Discontinued [...] [Arimidex] 1 MG PO daily 30 December 26, 2008 April 24, 2009 Discontinued [...] October 02, 2011 October 13, 2013 Discontinued Minturn-3 Fatty Acids [M[place]urn-3] 1 CAP PO daily 0 October 02, 2011 October 13, 2013 Discontinued Potassium Chloride 20 MEQ PO daily 30 October 02, 2011 January 14, 2012 Discontinued Warfarin Sodium [Coumadin] 2 MG PO 30 October 02, 2011 January 14, 2012 [...] October 13, 2013 December 02, 2016 Discontinued Isosorbide Mononitrate (Imdur*) 15 MG PO [...] Cyanocobalamin (Cyanocobalamin 1000MCG\Ml*) 1000 MCG IM Monthly 1 February 06, 2016 March 24, 2018 Discontinued [...] November 19, 2016 December 02, 2016 Discontinued Bumetanide 1 MG PO daily 90 [...] 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 Ref. Range Result Comment Bedside Urine Clarity March 24, 2018 9:57am CLEAR (N=CLEAR) Bedside Urine Color (LAB) March 24, 2018 9:57am STRAW (N=CLEAR) Bedside Urine Specific [place] (LAB March 24, 2018 9:57am 1.005(N=1.000- 1.025 [...] April 27, 2017 5:21am 0.01 1000/uL 0.00-0.20 Sodium Level April 27, 2017 5:21am 139 [...] April 27, 2017 5:21am 41 Low 61- 83803 Units: mL/min/1.73m2) Estimated GFR () April 27, 2017 5:21am 48 Low 61-12485 Units: mL/min/1.73m2) BUN/Creatinine Ratio April 27, 2017 [...] Normal <30 Microalbuminuria 30-299 Clinical Albuminuria > ff=961 The ADA recommends that at least two of three specimens collected within a 3-6 month period be abnormal before considering a patient to be within a diagnostic category. Bedside Glucose April 26, 2017 9:26pm 123 mg/dL High 65-99 POINT-OF- CARE TESTING PERFORMED BY PERSONNEL OF: [address] [place] [address] Chief Complaint and Reason for Visit Encounter [...] MG PO daily March 24, 2018 Active Cyanocobalamin (Vitamin B-12) 1000 MCG [...] MG PO daily October 02, 2011 Discontinued Minturn-3 Fatty Acids 1 CAP PO daily October [...] EYES four times daily October 13, 2013 Active Isosorbide Mononitrate (Imdur*) 15 MG PO every [...] twice a day 0 May 31, 2014 Discontinued Lisinopril 10 MG PO daily June 19, 2014 Discontinued Spironolactone 25 MG PO daily June 19, 2014 Discontinued Famotidine 20 MG PO every day at bedtime June 19, 2014 Discontinued Spironolactone 12.5 MG PO daily June 19, 2014 Discontinued 12.5mg=1/2 tab take [...] 5 MG PO every day at bedtime January 21, 2016 Discontinued Cyanocobalamin (Cyanocobalamin 1000MCG\Ml*) 1000 MCG IM Monthly February 06, 2016 Discontinued Lisinopril 5 MG PO every day at bedtime 45 May 12, 2016 Discontinued Spironolactone 12.5 MG [...] Active Folic Acid 1 MG PO daily 30 November 19, 2016 Active Hydrocodone/Acetaminophen 1 TAB [...] 0 November 19, 2016 Active Vit C/Vit E/Lutein/Min/[place]-3 1 CAP PO daily 0 December 02, 2016 Active Warfarin Sodium 5 MG PO daily 30 December 02, 2016 Active Psyllium Husk 1 TSP PO every other [...] UNIT PO daily 0 July 27, 2017 Active Bumetanide 1 MG PO daily 90 September 09, 2017 Discontinued Potassium Chloride 40 MEQ PO daily 120 September 09, 2017 Discontinued 40meq=4 tablets Encounters Encounter Facility Location Admit/Visit Date Discharge/Departure Date Attending Provider Departed Physician/Provider Office Visit [facility] March 24, 2018 9:23am March 24, 2018 10:10am Ivy, Mohsen Registered Physician/Provider Office Visit [facility] March 24, 2018 8:05am Luis Felipe Brown Registered Inpatient [facility] March 22, 2018 8:38am Luis Felipe Brown Registered Inpatient [facility] March 15, 2018 8:46am Luis Felipe Brown Registered Inpatient [facility] March 08, 2018 7:55am Luis Felipe Brown Departed Physician/Provider Office Visit [facility] February 22, 2018 2:09pm February 23, 2018 9:43am Luis Felipe Brown Departed Physician/Provider Office Visit [facility] February 15, 2018 2:17pm February 15, 2018 2:30pm Julee Chung Registered [facility] January 27, 2018 11:17am Glenn Ruiz Registered Inpatient [facility] January 27, 2018 12 :00am Sagrario Craig Registered [facility]patient [facility] January 26, 2018 11:59pm Luis Felipe Brown Registered Inpatient [facility] January 24, 2018 11 :59pm Antwan Godinez Registered Inpatient [facility] January 18, 2018 12: 00am Antwan Godinez Registered [facility] December 29, 2017 11:59pm Luis Felipe Brown Registered Inpatient [facility] December 01, 2017 11:59pm Luis Felipe Brown Registered In[facility] November 03, 2017 11:59pm Luis Felipe Brown [facility]ed [facility] October 29, 2017 9:50am October 29, 2017 11:00pm Luis Felipe Brown Registered Inpatient [facility] October 25, 2017 4:02pm Julieta Guzman Registered Inpatient [facility] October 08, 2017 12:00am Antwan Godinez Registered [facility] September 11:59pm Luis Felipe Brown Registered In[facility] September 16, 2017 11:59pm Remberto King Registered Physician/Provider Office [facility] September 09, 2017 10:00am Remberto King Registered Physician/Provider Office Visit [facility] [place] August 24, 2017 10:30am Luis Felipe Brown Departed [facility] Patient Bill July 27, 2017 11 :40am July 27, 2017 Mohsen Haynes Registered Physician/Provider Office Visit [facility] July 27, 2017 10:40am Ivy, Bed Departed Referred [facility] July 22, 2017 9:45am July 22, 2017 Remberto King Registered Physician/Provider Office Visit [facility] July 06, 2017 11:45am Remberto King Discharged Inpatient [facility] Card[facility] April 26, 2017 2:40pm April 27, 2017 1:00pm Yolis Waggoner Functional Status No known functional status. Immunizations No known immunizations. Payers Payer Name Policy Type Covered Libertarian Covered Libertarian Id Relationship Subscriber Subscriber Id Medicaid [id number] Other [id number] Self / Same As Patient [id number] Medicare Medicare [id number] Self / Same As Patient [id number] Self Pay Other [facility] Medicare Solutions Medicare [id number] Self / Same As Patient [id number] Plan of Care No Known Plan of [...]
--- OUTSIDE RECORDS SUMMARY | 2018-12-08 01:21 | XMS REPORT | Continuity of Care Document ---
Author Author [facility] Organization [facility] Address [address] [place] [address] Phone Unavailable Care Team Providers Care Supervisor Nurse Name Role Phone Toyin Harris Donna DO Unavailable Insurance Providers Payer Name Policy Number Subscriber Name Relationship [facility] Medicare Solutions [id number] Weston Michelle A Self / Same As Patient Medicaid [employer] [id number] Weston Michelle A Self / Same As Patient Advance Directives Directive Response Recorded Date/Time Do You Have A Living Will? Yes 04/26/17 1:22pm Do You Have a DPOA? Yes 04/26/17 1:22pm Chief Complaint and Reason for Visit Chief Complaint CP UNSTABLE ANGINA Reason for Visit Breast cancer CVA (cerebral vascular accident) Problems Active Problems Medical Problem Onset Date Status Congestive heart failure (CHF) 04/08/2014 Acute Nonischemic cardiomyopathy Unknown Acute Atrial fibrillation Unknown Acute Pacemaker Unknown Acute Actinic keratosis Unknown Acute Anemia Unknown Acute Thrombocytopenia Unknown Acute Invasive ductal carcinoma of left breast Unknown Acute Personal history of breast cancer Unknown Acute Blood loss anemia Unknown Acute Chronic a-fib Unknown Acute 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 Acute NYHA class 3 acute on chronic systolic heart failure Unknown Acute Pancytopenia Unknown Acute CKD (chronic kidney disease) Unknown Acute Chest pain Unknown Acute Unstable angina Unknown Acute Surgical Problem Onset Date Status H/O mitral valve replacement Unknown Acute S/P TVR (tricuspid valve replacement) Unknown Acute S/P hernia repair Unknown Acute S/P mastectomy Unknown Acute S/P tonsillectomy and adenoidectomy Unknown Acute S/P placement of cardiac pacemaker Unknown Acute History of cardiac catheterization Unknown Acute Hx of CABG Unknown Acute H/O mastectomy Unknown Acute History of tricuspid valve replacement with mechanical valve Unknown Acute H/O mitral valve replacement with mechanical valve Unknown Acute Past Problems Medical Problem Onset Date Afib Unknown Pacemaker at end of battery life 12/19/2014 Deep vein thrombosis Unknown Congestive heart failure Unknown Cardiac pacemaker Unknown Diabetes Unknown COPD (chronic obstructive pulmonary disease) Unknown Breast cancer Unknown CVA (cerebral vascular accident) Unknown Medications Current Home Medications Medication Dose Units Route Directions Days/Qty Instructions Start Date Docusate Sodium (Colace) 100 Mg 200 Mg Oral Three Times A Day 60 12/21 Ferrous Sulfate 1 Tab Oral Daily for 12/21/08 Zinc 50 Mg 50 Mg Oral Daily 12/16/09 Ascorbate Calcium 500 Mg 500 Mg Oral Twice A Day 10/02/11 Albuterol/Ipratropium 3 Ml 3 Ml Inhalation Four Times Daily as needed for Shortness Of Breath 90 10/13/13 Diphenhydramine Hcl 25 Mg 25 Mg Oral As Needed for Allergies 30 Carboxymethylcellulose Sodium 1 Each 1 Drops Both Eyes Four Times Daily for Dry Eyes 10/13/13 Montelukast Sodium (Singulair 10 Mg) 10 Mg 10 Mg Oral Daily 30 Nitroglycerin 0.4 Mg 0.4 Mg Sublingual As Directed 25 Place one tab under tongue every 5 min up to 3 doses as needed for chest pain. If chest pain not resolved, to ER/911 04/11/14 Bumetanide 1 Mg 1 Mg Oral Daily 05/31/14 Pantoprazole Sodium (Protonix) 40 Mg 40 Mg Oral Twice A Day 60 Cyanocobalamin (Vitamin B-12 Injection) 1,000 Mcg/Ml 1,000 Mcg Intramusc Monthly 1 IM INJECTION 02/06/16 Spironolactone (Aldactone 25 Mg*) 25 Mg 12.5 Mg Oral Daily 45 12.5mg=1/2 tab take 1/2 tab daily 08/21/16 Sucralfate 1 Gram 1 Gm Oral Four Times Daily 08/28/16 Levothyroxine Sodium (Levoxyl) 150 Mcg 150 Mcg Oral Daily 08/28/16 Carvedilol 6.25 Mg 6.25 Mg Oral Twice A Day 180 09/18/16 Hydrocodone Bit/Acetaminophen 5 Mg-325 Mg 1 Tab Oral Every 6 Hours As Needed as needed for Pain 40 11/19/16 Blood Sugar Diagnostic 1 Strip 1 Strip Topical Twice A Day 100 "May substitute due to prescription drug coverage" 11/19/16 Polyethylene Glycol 3350 17 Gram 17 Gm Oral Every Other Day for Fiber 1 11/19/16 Folic Acid 1 Mg 1 Mg Oral Daily 30 11/19/16 Misc Items 2 L Nasal Hs And Prn When@Rest for . 11/19/16 Simethicone 80 Mg 80 Mg Oral Three Times A Day 11/19/16 Blood Sugar Diagnostic 1 Each 1 Packet Sub-Q Twice A Day 11/19/16 Warfarin Sodium 5 Mg 5 Mg Oral Daily for Anticoagulant 30 12/02/16 Vit C/Vit E/Lutein/Min/Ridgeway-3 150 Mg-30 Unit-5 Mg-150 Mg 1 Cap Oral Daily for Supplement 12/02/16 Psyllium Husk 0.4 Gram 1 Tsp Oral Every Other Day for Fiber 04/26/17 Acetaminophen 500 Mg 500 Mg Oral Every 4 Hours as needed for Mild Pain 90 04/27/17 Past Home Medications Medication Directions Ordered Status Anastrozole (Arimidex) 1 Mg Tablet, 1 Mg Oral Daily 12/20/08 Discontinued Potassium Chloride Capsule.sa, 103 Meq Oral Daily 12/21/08 Discontinued Aspirin 81 Mg Tablet, 81 Mg Oral Daily 12/21/08 Discontinued Digoxin (Lanoxin 250 Mcg) 250 Mcg Tablet, 250 Mcg Oral Daily 12/21/08 Discontinued Levothyroxine Sodium (Levoxyl) 112 Mcg Tablet, 112 Mcg Oral Daily 12/21/08 Discontinued Furosemide (Lasix 40 Mg) 40 Mg Tablet, 10 Mg Oral Daily 12/21/08 Discontinued Ascorbic Acid 250 Mg Tablet, 500 Mg Oral Daily 12/16/09 Discontinued Multivitamins 1 Tab Tablet, 1 Tab Oral Daily 12/21/08 Discontinued Warfarin Sodium (Coumadin) 2.5 Mg Tablet, 2.5 Mg Oral Qmwf 12/21/08 Discontinued Warfarin Sodium (Coumadin) 5 Mg Tablet, 5 Mg Oral Qt Th S Callahan 12/21/08 Discontinued Hydrocodone Bit/Acetaminophen (Vicodin 5/500 Tab) 1 Tab Tablet, 1-2 Tab Oral Every 4 Hours As Needed for Pain 12/21/08 Discontinued Anastrozole (Arimidex) 1 Mg Tablet, 1 Mg Oral Daily 12/26/08 Discontinued Anastrozole (Arimidex) 1 Mg Tablet, 1 Mg Oral Daily 04/24/09 Discontinued Simvastatin 20 Mg Tablet, 20 Mg Oral Daily 12/16/09 Discontinued Montelukast Sodium (Singulair 10 Mg) Tablet, 20 Mg Oral Daily With Supper for Allergies 12/16/09 Discontinued Levothyroxine Sodium 200 Mcg Tablet, 200 Mcg Oral Daily 10/02/11 Discontinued Warfarin Sodium (Coumadin) 2 Mg Tablet, 2 Mg Oral 10/02/11 Discontinued Warfarin Sodium (Coumadin) 3 Mg Tablet, 3 Mg Oral Daily 10/02/11 Discontinued Potassium Chloride 20 Meq Tab.prt.sr, 20 Meq Oral Daily 10/02/11 Discontinued [place]way-3 Fatty Acids (Fish Oil) 1 Cap Capsule, 1 Cap Oral Daily 10/02/11 Discontinued Lutein Capsule, 6 Mg Oral Daily 10/02/11 Discontinued Anastrozole (Arimidex) 1 Mg Tablet, 1 Mg Oral Daily 12/21/11 Discontinued [Warfarin] 5 Mg , 5 Mg Oral Daily for 01/14/12 Discontinued [Bra] , 02/04/12 Discontinued Anastrozole (Arimidex) 1 Mg Tablet, 1 Mg Oral Daily 07/18/12 Discontinued Cholecalciferol 1,000 Unit Capsule, 1000 Unit Oral Daily 09/02/12 Discontinued Anastrozole (Arimidex) 1 Mg Tablet, 1 Mg Oral Daily 02/21/13 Discontinued Anastrozole (Arimidex) 1 Mg Tablet, 1 Mg Oral Daily 08/14/13 Discontinued Cholecalciferol 5,000 Unit Tablet, 5000 Unit Oral Daily for Supplement Discontinued Beta-Carotene(A) W-C & E/Min 1 Tab Tablet, 1 Tab Oral Daily for Supplement Discontinued Isosorbide Mononitrate (Imdur) 30 Mg Tablet, 15 Mg Oral Bedtime 11/15/13 Discontinued Digoxin 125 Mcg Tablet, 125 Mcg Oral Daily 11/15/13 Discontinued Lisinopril 5 Mg Tablet, 5 Mg Oral Bedtime 11/15/13 Discontinued Warfarin Sodium (Coumadin) 5 Mg Tablet, 5 Mg Oral Daily 11/21/13 Discontinued Anastrozole (Arimidex) 1 Mg Tablet, 1 Mg Oral Daily 11/21/13 Discontinued Carvedilol 6.25 Mg Tablet, 6.25 Mg Oral Twice A Day 03/20/14 Discontinued Bumetanide 1 Mg Tablet, 1 Mg Oral Daily 04/09/14 Discontinued Warfarin Sodium (Coumadin) 5 Mg Tablet, 5 Mg Oral As Directed 04/09/14 Discontinued Lisinopril 10 Mg Tablet, 5 Mg Oral Twice A Day 04/09/14 Discontinued Lisinopril 10 Mg Tablet, 5 Mg Oral Twice A Day 04/09/14 Discontinued Lisinopril 10 Mg Tablet, 10 Mg Oral Daily 04/30/14 Discontinued Lisinopril 10 Mg Tablet, 10 Mg Oral Daily 06/19/14 Discontinued Spironolactone (Aldactone 25 Mg*) 25 Mg Tablet, 25 Mg Oral Daily 06/19/14 Discontinued Famotidine 20 Mg Tablet, 20 Mg Oral Bedtime 06/19/14 Discontinued Spironolactone (Aldactone 25 Mg*) 25 Mg Tablet, 12.5 Mg Oral Daily 06/19/14 Discontinued Lisinopril 10 Mg Tablet, 5 Mg Oral Daily 09/28/14 Discontinued Warfarin Sodium 5 Mg Tablet, 6 Mg Oral As Directed 10/16/14 Discontinued Carvedilol 6.25 Mg Tablet, 6.25 Mg Oral Twice A Day 12/17/14 Discontinued Cephalexin Monohydrate 500 Mg Capsule, 500 Mg Oral Three Times A Day Discontinued Lisinopril 10 Mg Tablet, 5 Mg Oral Daily 07/08/15 Discontinued Lisinopril 10 Mg Tablet, 5 Mg Oral Daily 07/08/15 Discontinued Spironolactone (Aldactone 25 Mg*) 25 Mg Tablet, 12.5 Mg Oral Daily 08/15/15 Discontinued Carvedilol 6.25 Mg Tablet, 6.25 Mg Oral Twice A Day 09/23/15 Discontinued Lorazepam 1 Mg Tablet, 1 Mg Oral As Directed 12/04/15 Discontinued Lisinopril 10 Mg Tablet, 5 Mg Oral Bedtime 01/21/16 Discontinued Lisinopril 10 Mg Tablet, 5 Mg Oral Bedtime 05/12/16 Discontinued Lisinopril 10 Mg Tablet, 5 Mg Oral Daily 11/19/16 Discontinued Social History Social History Problem Response Recorded Date/Time History of Street Drugs? No 04/26/2017 1:30pm Hx Alcohol Use No 04/26/2017 1:30pm Query Response Start Date Stop Date Smoking status: Never smoker Hospital Discharge Instructions Instructions Discharge Discharge/Dismiss patient: Dismiss/release patient order: Home Discharge instructions: Follow up with Dr. Waggoner on June 15 at 9am in [facility]. Please have your INR checked on of this week. Plan of Care Discharge Date 04/27/17 1:00pm Disposition HOME, ROUTINE DIS/ASST LIVING Instructions/Education Provided Instructions from visit on: 02/24/17 Prescriptions See Medication Section Care Plan and Goals See Discharge Instructions Section Functional Status No functional status results. Allergies, Adverse Reactions, Alerts Allergen Type Severity Reaction Status Last Updated Ciprofloxacin Lactate Adverse Reaction Intermediate Confusion Active 09/17 Diazepam Adverse Reaction Unknown Active 01/02/16 Immunizations No immunization records. Vital Signs Acute Vital Signs Vital Response Date/Time Temperature (Fahrenheit) 98.1 degrees F (97.6 - 99.5) 04/27/2017 12:47pm Temperature (Celsius) 36.5 degrees C (36.4 - 37.5) 04/27/2017 2:42am Pulse Pulse Rate 60 bpm (60 - 100) 04/27/2017 12:48pm Respiratory Rate 18 bpm (10 - 24) 04/27/2017 12:47pm Oxygen Saturation O2 Sat by Pulse Oximetry 98 % (93 - 100) 04/27/2017 12:48pm Blood Pressure 127/56 mm Hg 04/27/2017 12:48pm Blood Pressure Mean 81 mm Hg 04/27/2017 12:47pm Height 5 ft 3 in Weight 141 lb Body Mass Index 25.0 kg/m^2 Ambulatory Vital Signs Vital Response Date/Time Height 5 ft 2 in 02/24/2017 3:33pm Weight 145 lbs 02/24/2017 3:33pm Temperature, Oral 98.1 degrees F 02/24/2017 3:33pm Blood Pressure, Sitting, Right Arm 136/41 mm Hg 02/24/2017 3:33pm Pulse Rate 59 bpm 02/24/2017 3:33pm Respiration Rate 16 bpm 02/24/2017 3:33pm Body Surface Area 1.71 m2 02/24/2017 3:33pm Body Mass Index 26.5 kg/m2 02/24/2017 3:33pm Pulse Oximetry Pulse Oximetry 02/24/2017 3:33pm Results Laboratory Results Test Name Result Units Flags Reference Collection Date/Time Result Date/ Time Comments Urine Microalbumin mg/dl 0.4 mg/dL 01/26/2017 11:20am 01/26/2017 2: 04pm Urine Creatinine (Albumin) 11.74 mg/dL 01/26/2017 11:20am 01/26/2017 2:04pm Urine Microalbumin/Creatinine Ratio 34 mg/g H <30 01/26/2017 11:20am 2:04pm The ADA (Diabetes Care 26:S94-S98,2003) defines abnormalities in albumin excretion as follows: CATEGORY (RESULT mg/g CREATININE) Normal <30 Microalbuminuria 30-299 Clinical Albuminuria > zm=291 The ADA recommends that at least two of three specimens collected within a 3-6 month period be abnormal before considering a patient to be within a diagnostic category. Prothrombin Time 36.2 seconds H 9.0-11.5 04/27/2017 5:04/27/2017 6: 08am Prothromb Time International Ratio 3.4 H 0.9-1.1 04/27/2017 5:07/2017 6:08am INR reference interval applies to patients not on anticoagulant therapy. The INR is a calculated value and is used to guide oral anticoagulation therapy. Recommended INR Range Moderate Intensity Warfarin Therapy 2.0 - 3.0 Higher Intensity Warfarin Therapy 2.5 - 3.5 White Blood Count 2.7 1000/cmm L 3.8-10.8 04/27/2017 5:04/27/2017 5 :54am Red Blood Count 3.04 MIL/uL L 3.80-5.10 04/27/2017 5:04/27/2017 5: 54am Hemoglobin 8.8 g/dL L 11.7-15.5 04/27/2017 5:04/27/2017 5:54am Hematocrit 27.7 % L 35.0-45.0 04/27/2017 5:04/27/2017 5:54am Mean Corpuscular Volume 91 fL 80-100 04/27/2017 5:04/27/2017 5: 54am Mean Corpuscular Hemoglobin 29 pg 27-33 04/27/2017 5:04/27/2017 5: 54am Mean Corpuscular Hemoglobin Concent 32 g/dL 32-36 04/27/2017 5:07/2017 5:54am Red Cell Distribution Width 16.5 % H 11.0-15.0 04/27/2017 5:2016 5:54am Platelet Count 65 1000/cmm L 140-400 04/27/2017 5:04/27/2017 5: 54am Mean Platelet Volume 10.3 fL 8.7-11.9 04/27/2017 5:04/27/2017 5: 54am Granulocytes (%) 66.7 % 04/27/2017 5:04/27/2017 5:54am Lymphocytes % 19.2 % 04/27/2017 5:04/27/2017 5:54am Monocytes % 9.6 % 04/27/2017 5:04/27/2017 5:54am Eosinophils % 4.1 % 04/27/2017 5:04/27/2017 5:54am Basophils % 0.4 % 04/27/2017 5:04/27/2017 5:54am Granulocytes # 1.81 1000/uL 1.50-7.80 04/27/2017 5:04/27/2017 5: 54am Lymphocytes # 0.52 1000/uL L 0.85-3.90 04/27/2017 5:04/27/2017 5: 54am Monocytes # 0.26 1000/uL 0.20-0.95 04/27/2017 5:04/27/2017 5:54am Eosinophils # 0.11 1000/uL 0.01-0.50 04/27/2017 5:04/27/2017 5: 54am Basophils # 0.01 1000/uL 0.00-0.20 04/27/2017 5:04/27/2017 5:54am Sodium Level 139 mmol/L 135-146 04/27/2017 5:04/27/2017 6:01am Potassium Level 4.1 mmol/L 3.5-5.0 04/27/2017 5:04/27/2017 6:01am Chloride Level 98 mmol/L 98-110 04/27/2017 5:04/27/2017 6:01am Carbon Dioxide Level 32.4 mmol/L H 19.0-30.0 04/27/2017 5:2016 6:01am Anion Gap 9 7-17 04/27/2017 5:04/27/2017 6:01am Glucose Level 105 mg/dL H 65-99 04/27/2017 5:04/27/2017 6:01am Blood Urea Nitrogen 43 mg/dL H 7-04/27/2017 5:04/27/2017 6:01am Creatinine 1.21 mg/dL H 0.60-0.88 04/27/2017 5:04/27/2017 6:01am Estimated GFR (Non- 41 L >60 04/27/2017 5:2016 6:01am Units: mL/min/1.73m2) Estimated GFR () 48 L >60 04/27/2017 5:2016 6:01am Units: mL/min/1.73m2) BUN/Creatinine Ratio 36 H 03-0904/27/2017 5:04/27/2017 6:01am Estimated GFR (Cockcroft-Gault) 31.81 ml/min >30 04/27/2017 5:07/2017 6:01am Adjusted body weight used for calculation. Calculated Osmolality 299 mOSM/kg 280-300 04/27/2017 5:04/27/2017 6:01am Calcium Level 9.2 mg/dL 8.6-10.2 04/27/2017 5:04/27/2017 6:01am Magnesium Level 2.8 mg/dL H 1.5-2.5 04/27/2017 5:04/27/2017 6:01am Cholesterol Level 137 mg/dL 125-199 04/27/2017 5:04/27/2017 6: 01am HDL Cholesterol 73 mg/dL >=46 04/27/2017 5:04/27/2017 6:01am Triglycerides Level 26 mg/dL 0-149 04/27/2017 5:04/27/2017 6:01am <150 mg/dL=Normal 150-199 mg/dL=Borderline High 200-499 mg/dL=High >/=500 mg/dL=Very High LDL Cholesterol, Calculated 59 mg/dL *SEE INTERP 04/27/2017 5:07/2017 6:01am Cholesterol/HDL Ratio 1.88 <5.00 04/27/2017 5:21am 04/27/2017 6:01am INTERPRETATION: LDL-Cholesterol Therapeutic Goal: <100 mg/dL if [...] HDL cholesterol >59 mg/dL Non-HDL Cholesterol Calculated 64 mg/dl *SEE INTERP 04/27/2017 5:21am 04/27/2017 6:01am Interpretation: Non-HDL Cholesterol Goal: <130 mg/dl if CHD is present <160 mg/dl if no CHD and 2 or more risk factors <190 mg/dl if no CHD Creatine Kinase 206 U/L H 29-143 04/27/2017 1:00am 04/27/2017 1:20am Creatine Kinase MB 2.0 ng/mL <=5.0 04/27/2017 1:00am 04/27/2017 1:22am Creatine Kinase MB Relative Index 1 % <6 04/27/2017 1:00am 04/27/2017 1 :22am Troponin T < 0.01 ng/mL <0.10 04/27/2017 1:00am 04/27/2017 1:22am Based on WHO criteria for the definition of AMI, the cutoff (clinical discriminator) value for troponin T is 0.1 ng/mL. Due to the release of kinetics of troponin T, a negative result within the first hours of the onset of symptoms does not rule out myocardial infarction with certainty. If suspected, repeat the test at appropriate intervals. Bedside Glucose 123 mg/dL H 65-99 04/26/2017 9:26pm 04/26/2017 9:41pm [id number] TESTING PERFORMED BY PERSONNEL OF: [place] [id number] [place] [address] Ambulatory Laboratory Results Test Name Result Units Flags Reference Result Date/Time Comments Prothromb Time International Ratio 3.3 02/17/2017 8:51am Prothrombin Time 35.8 seconds 02/17/2017 8:51am Bedside Urine Bilirubin (LAB) NEGATIVE(N=NEG) 01/26/2017 11:17am Bedside Urine Blood HEMOLYZED TRAC(N=NEG 01/26/2017 11:17am Bedside Urine Clarity CLEAR (N=CLEAR) 01/26/2017 11:17am Bedside Urine Color (LAB) STRAW (N=CLEAR) 01/26/2017 11:17am Bedside Urine Glucose (UA) NEGATIVE (N=NEG) 01/26/2017 11:17am Bedside Urine Ketones (LAB) NEGATIVE (N=NEG) 01/26/2017 11:17am Bedside Urine Leukocyte Esterase (L NEGATIVE (N=NEG) 01/26/2017 11: 17am Bedside Urine Nitrite (LAB) NEGATIVE (N=NEG) 01/26/2017 11:17am Bedside Urine pH (LAB) 6.0 (N=5-6) 01/26/2017 11:17am Bedside Urine Protein (LAB) NEGATIVE (N=NEG) 01/26/2017 11:17am Bedside Urine Specific [place] (LAB 1.005(N=1.000-1.025) 01/26/2017 11:17am Bedside Urine Urobilinogen (LAB) 0.2 mg/dL (N=<=1.0) 01/26/2017 11: 17am Patient Summary (HL7 CCD) Created on: 04/15/2015 WESTON MICHELLE : 1935 Sex: Female Author Author [facility] Organization Unknown Address [facility] [address] [place] [id number] Care Team Providers Care Supervisor Nurse Name Role Phone JOSIE SOARES, P Attphys JOSIE SOARES, P Prisurg NARENDRA ENG, K Rndphys B., L NASST S., PABLO NASST F., AMANDA NASST W., CHASE NASST B., A NASST S., M NASST C., N NASST W., K NASST B., M NASST B., J NASST T., M NASST K., K NASST C., T NASST C., A NASST J., E NASST M., R NASST Vital Signs Vital Sign Value Unit Date/Time Recent/Initial? BP Systolic 107 mmHg 04/10/2015 11:47 Initial VS BP Diastolic 47 mmHg 04/10/2015 11:47 Initial VS Respiratory Rate 18 bpm 04/10/2015 11:47 Initial VS Heart Rate 61 bpm 04/10/2015 11:47 Initial VS O2 % BldC Oximetry 99 % 04/10/2015 11:47 Initial VS Body Temperature 97.9 degrees 04/10/2015 11:47 Initial VS Weight Measured 148.2 lbs 04/10/2015 13:19 Initial VS Height 63.5 in 04/10/2015 13:19 Initial VS BMI (Body Mass Index) 25.81 kg/m^2 04/10/2015 13:19 Initial VS BSA (Body Surface Area) 1.74 m^2 04/10/2015 13:19 Initial VS Weight Measured 148.12 lbs 04/10/2015 13:49 Most Recent VS Height 63.5 in 04/10/2015 13:49 Most Recent VS BMI (Body Mass Index) 25.83 kg/m^2 04/10/2015 13:49 Most Recent VS BSA (Body Surface Area) 1.74 m^2 04/10/2015 13:49 Most Recent VS BP Systolic 118 mmHg 04/12/2015 10:05 Most Recent VS BP Diastolic 57 mmHg 04/12/2015 10:05 Most Recent VS Respiratory Rate 25 bpm 04/12/2015 10:05 Most Recent VS Heart Rate 60 bpm 04/12/2015 10:05 Most Recent VS O2 % BldC Oximetry 98 % 04/12/2015 10:05 Most Recent VS Body Temperature 97.8 degrees 04/12/2015 10:05 Most Recent VS Allergies Allergy Code Allergy Type Reaction Status CIPROFLOXACIN 2551 Drug allergy Active Procedures Procedure Code Procedure Type Date TROPONIN 552025768 SNOMED CT 04/10/2015 History of Immunizations Unknown or Not Available. Problems Unknown or Not Available. Results BASIC METABOLIC PANEL - Collect Date/Time: 04/11/2015 06:30 Test Name Code Test Result Test Units Test Ref Range GLUCOSE 2345-7 98 MG/DL L=73 H=113 UREA NITROGEN 3094-0 48 MG/DL L=10 H=25 CREATININE 2160-0 1.2 MG/DL L=0.8 H=1.2 CALCIUM 87753-0 9.0 MG/DL L=8.0 H=10.0 SODIUM 2951-2 140 MMOL/L L=133 H=143 POTASSIUM 2823-3 4.9 MMOL/L L=3.5 H=5.2 CHLORIDE 2075-0 106 MMOL/L L=99 H=108 CO2 2028-9 27 MMOL/L L=22 H=30 ANION GAP 12855-7 12 L=6 H=16 OSMO, CALC. 38698-0 303 MOS/KG L=283 H=300 B/C RATIO 3097-3 40 L=10 H=20 AGE [address]-5 80 YRS eGFR 02306-1 43 mL/min L=60 H=140 C-REACTIVE PROTEIN - Collect Date/Time: 04/12/2015 06:18 Test Name Code Test Result Test Units Test Ref Range CRP 1988-5 0.0 MG/DL L=0.0 H=0.5 CK - Collect Date/Time: 2014 10:19 Test Name Code Test Result Test Units Test Ref Range CK 2157-6 90 IU/L L=25 H=155 CKMB - Collect Date/Time: 10:19 Test Name Code Test Result Test Units Test Ref Range CKMB 36389-6 1.1 NG/ML L=0.0 H=10.4 COMPREHENSIVE METABOLIC PANEL - Collect Date/Time: 04/12/2015 06:18 Test Name Code Test Result Test Units Test Ref Range SODIUM 2951-2 141 MMOL/L L=133 H=143 POTASSIUM 2823-3 4.5 MMOL/L L=3.5 H=5.2 CHLORIDE 2075-0 106 MMOL/L L=99 H=108 CO2 2028-9 28 MMOL/L L=22 H=30 GLUCOSE 2345-7 91 MG/DL L=73 H=113 UREA NITROGEN 3094-0 35 MG/DL L=10 H=25 CREATININE 2160-0 1.0 MG/DL L=0.8 H=1.2 ANION GAP 34284-4 12 L=6 H=16 OSMO, CALC. 59157-2 300 MOS/KG L=283 H=300 TOTAL PROTEIN 2885-2 5.5 G/DL L=6.0 H=8.3 ALBUMIN 3.4 G/DL L=3.5 H=5.0 GLOBULIN 46684-5 2.1 G/DL L=1.9 H=3.5 A/G RATIO 1759-0 1.62 L=1.10 H=3.00 AST 1920-8 29 IU/L L=2 H=36 ALT 1744-2 21 IU/L L=7 H=52 TOTAL BILI 1975-2 1.2 MG/DL L=0.0 H=1.5 DIRECT BILI 1968-7 0.5 MG/DL L=0.0 H=0.3 INDIRECT BILI 1971-1 0.7 MG/DL L=0.2 H=0.8 ALK PHOS 6768-6 34 IU/L L=34 H=104 CALCIUM 98374-8 8.9 MG/DL L=8.0 H=10.0 B/C RATIO 3097-3 35 L=10 H=20 AGE [address]-5 80 YRS eGFR 63369-8 53 mL/min L=60 H=140 COMPREHENSIVE METABOLIC PANEL - Collect Date/Time: 04/10/2015 10:19 Test Name Code Test Result Test Units Test Ref Range SODIUM 2951-2 135 MMOL/L L=133 H=143 POTASSIUM 2823-3 5.1 MMOL/L L=3.5 H=5.2 CHLORIDE 2075-0 99 MMOL/L L=99 H=108 CO2 2028-9 28 MMOL/L L=22 H=30 GLUCOSE 2345-7 149 MG/DL L=73 H=113 UREA NITROGEN 3094-0 64 MG/DL L=10 H=25 CREATININE 2160-0 1.9 MG/DL L=0.8 H=1.2 ANION GAP 54082-6 13 L=6 H=16 OSMO, CALC. 54556-6 301 MOS/KG L=283 H=300 TOTAL PROTEIN 2885-2 6.2 G/DL L=6.0 H=8.3 ALBUMIN 3.8 G/DL L=3.5 H=5.0 GLOBULIN 46419-8 2.4 G/DL L=1.9 H=3.5 A/G RATIO 1759-0 1.58 L=1.10 H=3.00 AST 1920-8 27 IU/L L=2 H=36 ALT 1744-2 18 IU/L L=7 H=52 TOTAL BILI 1975-2 0.5 MG/DL L=0.0 H=1.5 DIRECT BILI 1968-7 0.2 MG/DL L=0.0 H=0.3 INDIRECT BILI 1971-1 0.3 MG/DL L=0.2 H=0.8 ALK PHOS 6768-6 38 IU/L L=34 H=104 CALCIUM 42225-6 9.3 MG/DL L=8.0 H=10.0 B/C RATIO 3097-3 34 L=10 H=20 AGE [address][birth year]-3 80 YRS eGFR 63501-8 25 mL/min L=60 H=140 FOLIC ACID - Collect Date/Time : 04/11/2015 23:16 Test Name Code Test Result Test Units Test Ref Range FOLATE 5908-9 18.2 NG/ML L=3.4 H=20.0 IRON STUDIES W/FERRITIN - Collect Date/Time: 04/11/2015 23:16 Test Name Code Test Result Test Units Test Ref Range IRON 730-2 54 MCG/DL L=25 H=190 TIBC 37805-8 324 MCG/DL L=250 H=450 %SAT 15026-2 17 % L=15 H=50 FERRITIN 2276-4 29 NG/ML L=5 H=380 TROPONIN - Collect Date/Time: 04/10/2015 10:19 Test Name Code Test Result Test Units Test Ref Range [place]IN I [address]-5 0.01 NG/ML L=0.00 H=0.40 TSH - Collect Date/Time: 04/10 10:19 Test Name Code Test Result Test Units Test Ref Range TSH 3016-3 1.32 MIU/ML L=0.49 H=4.67 VITAMIN B-12 (COBALAMIN) - Collect Date/Time: 04/11/2015 23:16 Test Name Code Test Result Test Units Test Ref Range VITAMIN B-12 3016-3 515 PG/ML L=200 W=6900 BNP - Collect Date/Time: 04/10 10:19 Test Name Code Test Result Test Units Test Ref Range BNP 79935-7 59 pg/mL L=0 H=100 CBC - Collect Date/Time: 04/12 06:18 Test Name Code Test Result Test Units Test Ref Range WBC 6690-2 2.6 10^3/UL L=4.0 H=11.0 RBC 06802-6 2.69 10^6/UL L=4.20 H=5.20 HGB 718-7 8.1 G/DL L=12.0 H=16.0 HCT 4544-3 25.5 % L=37.0 H=47.0 MCV 787-2 94.8 FL L=81.0 H=99.0 MCH 785-6 30.1 PG L=27.0 H=32.0 MCHC 786-4 31.8 G/DL L=32.0 H=36.0 RDW 788-0 16.6 % L=11.5 H=14.5 PLT 777-3 80 10^3/UL L=150 H=450 MPV 80682-0 9.3 FL L=6.0 H=9.5 LY 731-0 21.2 % L=20.0 H=40.0 MO 5905-5 10.6 % L=4.0 H=12.0 GR 770-8 65.8 % L=40.0 H=70.0 EO 713-8 2.0 % L=0.0 H=4.0 BA 706-2 0.4 % L=0.1 H=3.0 LY# 79998-5 0.5 10^3/UL L=1.5 H=3.5 MO# 742-7 0.3 10^3/UL L=0.0 H=1.0 GR# 751-8 1.7 10^3/UL L=1.5 H=7.3 EO# 711-2 0.1 10^3/UL BA# 704-7 0.0 10^3/UL SEGS 769-0 69 % L=40 H=70 LYMPH 730-2 20 % L=20 H=40 MONO 744-3 9 % L=4 H=12 EOS 714-6 2 % L=0 H=4 MANUAL DIFF. 86604-3 SEE BELOW N/A RBC MORPH 5909-7 SEE BELOW N/A ANISO 702-1 1+ N/A HYPO 728-6 1+ N/A OTHER SEEN 5909-7 NONE N/A PLT MORPHOLOGY 22930-5 NORMAL N/A CBC - Collect Date/Time: 04/11 23:16 Test Name Code Test Result Test Units Test Ref Range WBC 6690-2 2.9 10^3/UL L=4.0 H=11.0 RBC 83769-6 2.70 10^6/UL L=4.20 H=5.20 HGB 718-7 8.2 G/DL L=12.0 H=16.0 HCT 4544-3 25.7 % L=37.0 H=47.0 MCV 787-2 95.2 FL L=81.0 H=99.0 MCH 785-6 30.4 PG L=27.0 H=32.0 MCHC 786-4 31.9 G/DL L=32.0 H=36.0 RDW 788-0 16.4 % L=11.5 H=14.5 PLT 777-3 74 10^3/UL L=150 H=450 MPV 49603-4 9.7 FL L=6.0 H=9.5 LY 731-0 21.1 % L=20.0 H=40.0 MO 5905-5 11.2 % L=4.0 H=12.0 GR 770-8 65.2 % L=40.0 H=70.0 EO 713-8 2.1 % L=0.0 H=4.0 BA 706-2 0.4 % L=0.1 H=3.0 LY# 59235-1 0.6 10^3/UL L=1.5 H=3.5 MO# 742-7 0.3 10^3/UL L=0.0 H=1.0 GR# 751-8 1.9 10^3/UL L=1.5 H=7.3 EO# 711-2 0.1 10^3/UL BA# 704-7 0.0 10^3/UL MANUAL DIFF. 62528-7 NOT PERFORMED N/A CBC - Collect Date/Time: 04/11 06:30 Test Name Code Test Result Test Units Test Ref Range WBC 6690-2 2.7 10^3/UL L=4.0 H=11.0 RBC 39276-3 2.26 10^6/UL L=4.20 H=5.20 HGB 718-7 6.8 G/DL L=12.0 H=16.0 HCT 4544-3 22.2 % L=37.0 H=47.0 MCV 787-2 98.2 FL L=81.0 H=99.0 MCH 785-6 30.1 PG L=27.0 H=32.0 MCHC 786-4 30.6 G/DL L=32.0 H=36.0 RDW 788-0 15.9 % L=11.5 H=14.5 PLT 777-3 89 10^3/UL L=150 H=450 MPV 25667-6 9.5 FL L=6.0 H=9.5 LY 731-0 22.3 % L=20.0 H=40.0 MO 5905-5 11.5 % L=4.0 H=12.0 GR 770-8 64.0 % L=40.0 H=70.0 EO 713-8 1.5 % L=0.0 H=4.0 BA 706-2 0.7 % L=0.1 H=3.0 LY# 83517-7 0.6 10^3/UL L=1.5 H=3.5 MO# 742-7 0.3 10^3/UL L=0.0 H=1.0 GR# 751-8 1.7 10^3/UL L=1.5 H=7.3 EO# 711-2 0.0 10^3/UL BA# 704-7 0.0 10^3/UL SEGS 769-0 66 % L=40 H=70 LYMPH 730-2 25 % L=20 H=40 MONO 744-3 9 % L=4 H=12 MANUAL DIFF. 01448-9 SEE BELOW N/A RBC MORPH 5909-7 SEE BELOW N/A ANISO 702-1 1+ N/A HYPO 728-6 3+ N/A OTHER SEEN 5909-7 NONE N/A PLT MORPHOLOGY 40025-4 NORMAL N/A CBC - Collect Date/Time: 04/10 15:02 Test Name Code Test Result Test Units Test Ref Range WBC 6690-2 3.0 10^3/UL L=4.0 H=11.0 RBC 17041-5 2.14 10^6/UL L=4.20 H=5.20 HGB 718-7 6.5 G/DL L=12.0 H=16.0 HCT 4544-3 20.6 % L=37.0 H=47.0 MCV 787-2 96.3 FL L=81.0 H=99.0 MCH 785-6 30.4 PG L=27.0 H=32.0 MCHC 786-4 31.6 G/DL L=32.0 H=36.0 RDW 788-0 15.6 % L=11.5 H=14.5 PLT 777-3 82 10^3/UL L=150 H=450 MPV 73183-3 9.6 FL L=6.0 H=9.5 LY 731-0 20.5 % L=20.0 H=40.0 MO 5905-5 10.6 % L=4.0 H=12.0 GR 770-8 66.6 % L=40.0 H=70.0 EO 713-8 2.0 % L=0.0 H=4.0 BA 706-2 0.3 % L=0.1 H=3.0 LY# 10657-6 0.6 10^3/UL L=1.5 H=3.5 MO# 742-7 0.3 10^3/UL L=0.0 H=1.0 GR# 751-8 2.0 10^3/UL L=1.5 H=7.3 EO# 711-2 0.1 10^3/UL BA# 704-7 0.0 10^3/UL MANUAL DIFF. 30626-0 NOT INDICATED N/A CBC - Collect Date/Time: 04/10 10:19 Test Name Code Test Result Test Units Test Ref Range WBC 6690-2 3.9 10^3/UL L=4.0 H=11.0 RBC 20018-2 2.39 10^6/UL L=4.20 H=5.20 HGB 718-7 7.2 G/DL L=12.0 H=16.0 HCT 4544-3 23.3 % L=37.0 H=47.0 MCV 787-2 97.5 FL L=81.0 H=99.0 MCH 785-6 30.1 PG L=27.0 H=32.0 MCHC 786-4 30.9 G/DL L=32.0 H=36.0 RDW 788-0 15.8 % L=11.5 H=14.5 PLT 777-3 99 10^3/UL L=150 H=450 MPV 93907-9 9.1 FL L=6.0 H=9.5 LY 731-0 16.1 % L=20.0 H=40.0 MO 5905-5 9.5 % L=4.0 H=12.0 GR 770-8 72.9 % L=40.0 H=70.0 EO 713-8 1.0 % L=0.0 H=4.0 BA 706-2 0.5 % L=0.1 H=3.0 LY# 70188-3 0.6 10^3/UL L=1.5 H=3.5 MO# 742-7 0.4 10^3/UL L=0.0 H=1.0 GR# 751-8 2.9 10^3/UL L=1.5 H=7.3 EO# 711-2 0.0 10^3/UL BA# 704-7 0.0 10^3/UL MANUAL DIFF. 41758-7 NOT INDICATED N/A PROTIME W/INR - Collect Date/ Time: 04/12/2015 06:18 Test Name Code Test Result Test Units Test Ref Range PROTIME 50797-2 28.0 SECONDS L=10.0 H=14.0 INR 6301-6 2.55 L=0.80 H=1.20 PROTIME W/INR - Collect Date/ Time: 04/11/2015 06:30 Test Name Code Test Result Test Units Test Ref Range PROTIME 10386-0 29.2 SECONDS L=10.0 H=14.0 INR 6301-6 2.67 L=0.80 H=1.20 PROTIME W/INR - Collect Date/ Time: 04/10/2015 10:19 Test Name Code Test Result Test Units Test Ref Range PROTIME 24012-1 29.6 SECONDS L=10.0 H=14.0 INR 6301-6 2.70 L=0.80 H=1.20 PTT - Collect Date/Time: 04/10 10:19 Test Name Code Test Result Test Units Test Ref Range aPTT 81864-1 31.7 SECONDS L=25.0 H=39.0 D-DIMER QUANTITATIVE - Collect Date/Time: 04/10/2015 10:19 Test Name Code Test Result Test Units Test Ref Range D-DIMER QUANT. 75363-7 158 NG/DL L=0 H=270 RETICULOCYTE COUNT - Collect Date/Time: 04/11/2015 23:16 Test Name Code Test Result Test Units Test Ref Range RETICULOCYTE COUNT,AUTOMATED 2.5 % RETICULOCYTE, ABSOLUTE 05513 97418-43218 Active Medications Unknown or Not Available. Medications Administered During Visit Medication Dose Units Frequency Route Date/Time of Last Dose SPIRONOLACTONE(ALDACTONE)TAB 25MG 12.5 MG [id number] PO 04/12/2015 07: 31 SOD CHL 0.9% 1000ML 1000 ML CONT IV 04/11/2015 08: 05 LISINOPRIL(PRINIVIL)TAB 10MG 10 MG [id number] PO 04/12/2015 07: 31 MONTELUKAST(SINGULAIR)TAB:10MG 10 MG HS21 PO 04/11/2015 20: 44 EC ASPIRIN(ENTERIC ASPIRIN)TAB 81MG 81 MG [id number] PO 04/12/2015 07: 31 DOCUSATE SODIUM(COLACE)CAP 100MG 100 MG [id number] PO 04/12/2015 07: 31 FAMOTIDINE(PEPCID)TAB:20MG 20 MG [id number] PO 04/12/2015 07: 31 LEVOTHYROXINE(SYNTHROID)TAB:0.1MG 0.1 MG [id number] PO 04/12/2015 07: 31 SIMVASTATIN(ZOCOR)TAB 20MG 20 MG HS21 PO 04/11/2015 20: 44 BUMETANIDE(BUMEX)TAB 1MG 1 MG [id number] PO 04/12/2015 11: 20 ZINC SULFATE CAP 220MG 220 MG [id number] PO 04/12/2015 11: 20 IPRAT/ALBUTER(DUONEB)AMP 0.5/3.0/3ML 3 ML QIDRT INH 04/12/2015 07: 59 WARFARIN(COUMADIN)TAB 5MG 5 MG [id number] PO 04/11/2015 16: 52 OCUVITE/ICAPS 1 TB HS21 PO 04/11/2015 20:44 ASCORBIC ACID(VIT C)TAB 500MG 500 MG [id number] PO 04/11/2015 16: 52 BUMETANIDE(BUMEX)INJ:1MG/4ML SDV 0.5 MG X1 IVP 04/11/2015 17: 30 PRBC 1 UN X1 IV 04/11/2015 13:59 PRBC 1 UN X1 IV 04/11/2015 20:07 Encounters Unknown or Not Available. Social History Smoking Status Code Start Date End Date Never smoker [id number] Patient Decision Aids Unknown or Not Available. Discharge Instructions You were admitted to [facility] on 04/10/2015. You had the following tests done: RETICULOCYTE COUNT,AUTOMATED RETICULOCYTE, ABSOLUTE You were discharged from [facility] on 04/12/2015. Should you have any questions prior to discharge, please contact a member of your healthcare team. If you have left the hospital and have any questions, please contact your primary care physician. DIET:Regular, 1500 ML FLUID RESTRICITON Follow-up appointment:Wednesday, 04/16/2015, with Dr. Martin Baker at [facility] at10:45 AM Dietary restrictions:1500 Fluid Restriction Activity:Up with cane. Special instructions:WEIGHT DAILY Notify physician if the following occurs:DIZZINESS, FATIGUE, SHORTNESS OF AIR, EXCESSIVE BRUISING Did you have patient sign the Medical Dismissal letter?Yes. Blood products given:Yes, Date: 04/11/2015 Blood Products: Given to improve your health. Chief Complaint and Reason For Visit Chief Complaint Date of Onset ANEMIA, YANA Function Status Unknown or Not Available. Plan of Care Unknown or Not Available. Referral/Transition of Care Unknown or Not Available. Procedures Procedure Status Date Provider(s) UA w/o micro (Office) Completed 07/31/15 UA w/o micro (Office) Completed 02/06/16 Latitude Completed 03/26/16 UA w/o micro (Office) Completed 08/04/16 Latitude Completed 10/19/16 UA w/o micro (Office) Completed 01/26/17 Encounters Encounter Location Arrival/Admit Date Discharge/Depart Date Attending Provider Discharged Inpatient (obs) [facility] 04/26/17 2:40pm 04/27/17 1: 00pm Yolis Waggoner MD Office Visit [facility] Oncology [place] 02/24/17 3:30pm Luis Felipe Brown MD Registered Practice [facility] 02/24/17 3:30pm Luis Felipe Brown MD Registered Provider [facility] 01/26/17 1:48pm Mohsen Haynes MD Office Visit Nephrology [facility] 01/26/17 11:20am Mohsen Haynes MD Office Visit [facility] 01/19/17 1:15pm Dewayne Ibarra MD Recent Diagnosis Breast cancer CVA (cerebral vascular accident)
--- OUTSIDE RECORDS SUMMARY | 2018-12-08 01:22 | XMS REPORT | Continuity of Care Document ---
Author Author [facility] Organization [facility] Address [address] [place] [address] Care Team Providers Care Nursing Educator Name Role Phone Toyin Harris PCP Luis Felipe Brown Attphys Allergies, Adverse Reactions, Alerts Allergen Type Severity Reaction Last Updated Verified Status diazepam Adverse Reaction Unknown January 02, 2016 N Active Ciprofloxacin Lactate Adverse Reaction Moderate Confusion September 17, 2009 Active Medications Active Medications Medication Dose Units Route Sig Qty Days Start Date Status Instructions Bumetanide 1 MG PO twice a day February 22, 2018 Active Bifidobacterium Infantis [Align] 4 MG PO daily February 22, 2018 Active Isosorbide Mononitrate 10 MG PO daily February 22, 2018 Active Diclofenac Sodium [Voltaren] 2 G Topical three times a day February 22, 2018 Active Carvedilol 6.25 mg PO twice a day 180 September 16, 2017 Active Docusate Sodium 200 MG PO three [...] SHORTNESS OF BREATH October 13, 2013 Active Carboxymethylcellulose Sodium [Thera [...] a day 60 July 16, 2015 Active Cyanocobalamin (Cyanocobalamin 1000MCG\Ml*) 1000 MCG IM Monthly February 06, 2016 Active Sucralfate [Carafate] 1 GM PO four times daily 0 August 28, 2016 Active Levothyroxine Sodium [Synthroid] 150 MCG PO daily 0 August 28, 2016 Active Blood Sugar Diagnostic [Prodigy No Coding] 1 PACKET SQ twice a day 0 November 19, 2016 Active Blood Sugar Diagnostic (One Touch Ultra Test Strips) 1 STRIP TP twice a day 100 November 19, 2016 Active Folic Acid 1 MG PO daily November 19, 2016 Active Hydrocodone/Acetaminophen [[place] 5-325 Tablet] 1 TAB PO every 6 hours as needed PRN For PAIN 40 November 19, 2016 Active Misc Items (Oxygen) 2 L NA hs and prn when@rest 0 November 19, 2016 Active Polyethylene Glycol 3350 [Miralax] 17 GM PO every other day November Active Simethicone 80 MG PO three times a day 0 November 19, 2016 Active Vit C/Vit E/Lutein/Min/Victoria-3 [Ocuvite Softgel] 1 CAP PO daily December 02, 2016 Active Warfarin Sodium 5 MG PO daily December 02, 2016 Active Psyllium Husk [Metamucil] 1 TSP PO every other day 0 April 26, 2017 Active Acetaminophen [Mapap] 500 MG PO every 4 hours PRN For MILD PAIN 90 April 27, 2017 Active Spironolactone 12.5 MG PO daily 45 May 31, 2017 Active 12.5mg=1/ 2 tab take 1/2 tab daily AQUAGEL W/02 1 TAB PO daily 0 July 27, 2017 Active Vitamin E 180 UNIT PO daily 0 July 27, 2017 Active Discontinued Medications Medication Dose Units Route Sig Qty Days Start Date Discontinued Date Status Instructions Anastrozole [Arimidex] 1 MG PO daily December [...] Levothyroxine Sodium [Synthroid] 112 MCG PO daily 30 December 21, 2008 October 02, 2011 Discontinued [...] October 02, 2011 October 13, 2013 Discontinued Victoria-3 Fatty Acids [Victoria-3] 1 CAP PO daily 0 October 02, [...] Discontinued Warfarin Sodium 6 MG PO DIRECTED 30 October 16, 2014 December 02, 2016 Discontinued [...] January 21, 2016 February 06, 2016 Discontinued Lisinopril 5 MG [...] with mechanical valve Active 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 Relevant Diagnostic Tests and/or Laboratory Data Laboratory Results Test Date/Time Result Interp. Ref. Range Result Comment Prothromb Time International Ratio January 26, 2018 7:10am 3.2 Prothrombin Time January 26, 2018 7:10am 34.2 Prothrombin Time April 27, 2017 5:21am 36.2 [...] April 27, 2017 5:21am 41 Low 61- 64741 Units: mL/min/1.73m2) Estimated GFR () April 27, 2017 5:21am 48 Low 61-84665 Units: mL/min/1.73m2) BUN/Creatinine Ratio April 27, 2017 [...] Normal <30 Microalbuminuria 30-299 Clinical Albuminuria > fe=533 The ADA recommends that at least two of three specimens collected within a 3-6 month period be abnormal before considering a patient to be within a diagnostic category. Bedside Glucose April 26, 2017 9:26pm 123 mg/dL High 65-99 POINT-OF- CARE TESTING PERFORMED BY PERSONNEL OF: [address] [place] [address] Chief Complaint and Reason for Visit Encounter Admit Date Chief Complaint Reason for Visit Departed Physician/Provider Office Visit February 22, 2018 2:09pm Pancytopenia/ Hx. Breast CA/Procrit Hospital Discharge Instructions No known hospital discharge instructions. Hospital Discharge Medications Medication Dose Units Route Sig Qty Days Order Date Status Instructions Bumetanide 1 MG PO twice a day February 22, 2018 Active Bifidobacterium Infantis 4 MG PO daily February 22, 2018 Active Isosorbide Mononitrate 10 MG PO daily February 22, 2018 Active Diclofenac Sodium 2 G Topical three times a day February 22, 2018 Active Carvedilol 6.25 mg PO twice a day 180 September 16, 2017 Active Anastrozole 1 MG PO daily December 20, 2008 Discontinued Aspirin (Aspirin 81 Mg) 81 MG PO daily December 21, 2008 Discontinued Docusate Sodium 200 MG PO three times a day 60 December 21, 2008 Active Warfarin Sodium 2.5 [...] MG PO daily October 02, 2011 Discontinued Victoria-3 Fatty Acids 1 CAP PO daily October [...] times daily 0 October 13, 2013 Active Isosorbide Mononitrate (Imdur*) [...] Carvedilol 6.25 MG PO twice a day December 17, 2014 Discontinued Cephalexin 500 MG [...] 1000 MCG IM Monthly February 06, 2016 Active Lisinopril 5 MG PO every day at [...] 0 November 19, 2016 Active Vit C/Vit E/Lutein/Min/Victoria-3 1 CAP PO daily 0 December 02, 2016 Active Warfarin Sodium 5 MG PO daily December 02, 2016 Active Psyllium Husk 1 [...] UNIT PO daily July 27, 2017 Active Bumetanide 1 MG PO daily 90 September 09, 2017 Discontinued Potassium Chloride 40 MEQ PO daily 120 September 09, 2017 Discontinued 40meq=4 tablets Encounters Encounter Facility Location Admit/Visit Date Discharge/Departure Date Attending Provider Departed Physician/Provider Office Visit [facility] February 22, 2018 2:09pm February 23, 2018 9:43am Luis Felipe Brown Departed Physician/Provider Office Visit [facility] February 15, 2018 2:17pm February 15, 2018 2:30pm Julee Chnug Registered [facility] January 27, 2018 11:17am Glenn Ruiz Registered Inpatient [facility] January 27, 2018 12 :00am Sagrario Craig Registered Inpatient [facility] January 26, 2018 11:59pm Luis Felipe Brown Registered Inpatient [facility] January 24, 2018 11 :59pm Antwan Godinez Registered Inpatient [facility] January 18, 2018 12: 00am Antwan Godinez Registered Inpatient [facility] December 29, 2017 11:59pm Luis Felipe Brown Registered Inpatient [facility] December 01, 2017 11:59pm Luis Felipe Brown Registered Inpatient [facility] November 03, 2017 11:59pm [facility] 29, 2017 9:50am October 29, 2017 11:00pm Luis Felipe Brown Registered Inpatient [facility] October 25, 2017 4:02pm Julieta Guzman Registered Inpatient [facility] October 08, 2017 12:00am Antwan Godinez Registered Inpatient [facility] September 11:59pm Luis Felipe Brown Registered Inpatient [facility] September 16, 2017 11:59pm Remberto King Registered Physician/Provider Office Visit [facility] September 09, 2017 10:00am Remberto King Registered Physician/Provider Office Visit [facility] August 24, 2017 10:30am [facility] Bill July 27, 2017 11 :40am July 27, 2017 Chjazmín, Bed Registered Physician/Provider Office Visit [facility] July 27, 2017 10:40am Joonfelicianikki, Bed Departed [facility] July 22, 2017 9:45am July 22, 2017 Remberto King Registered Physician/Provider Office Visit [facility] July 06, 2017 11:45am Remberto King Discharged Inpatient [facility] Cardiac Progressive Care Unit April 26, 2017 2:40pm April 27, 2017 1:00pm Yolis Waggoner Registered Physician/Provider Office Visit [facility] February 24, 2017 3:30pm Luis Felipe Brown Functional Status No known functional status. Immunizations No known immunizations. Payers Payer Name Policy Type Covered Green Party Covered Green Party Id Relationship Subscriber Subscriber Id Medicaid [id number] Other [id number] Self / Same As Patient [id number] Self Pay Other [facility] Medicare Solutions Medicare [id number] Self / Same As Patient [id number] Plan of Care No Known Plan of Care Information Social History No known social history. Vital Signs Vital Reading Result Reference Range Collection Date/Time Height 5 ft 3 in February 15, 2018 2:27pm Weight 147 lb February 22, 2018 12:57pm Temperature n/a Pulse 60 BPM 60-90 February 22, 2018 12:57pm Respiration 20 RPM 12-February 22, 2018 12:57pm Pulse Oximetry n/a Blood Pressure Systolic 111 100-180 February 22, 2018 12:57pm Blood Pressure Diastolic 54 60-90 February 22, 2018 12:57pm Body Mass Index 25.8 February 15, 2018 2:27pm
--- OUTSIDE RECORDS SUMMARY | 2018-12-08 01:23 | XMS REPORT | Continuity of Care Document ---
Author Author [facility] Organization [facility] Address [address] [place] [address] Care Team Providers Care Salesperson Women'S Hats Name Role Phone Toyin Harris PCP Julee Chung Attphys Allergies, Adverse Reactions, Alerts Allergen Type Severity Reaction Last Updated Verified Status diazepam Adverse Reaction Unknown January 02, 2016 N Active Ciprofloxacin Lactate Adverse Reaction Moderate Confusion September 17, 2009 Active Medications Active Medications Medication Dose Units Route Sig Qty Days Start Date Status Instructions Carvedilol 6.25 mg PO twice a day [...] If chest pain not resolved, to ER/911 Bumetanide 1.5 MG PO twice a day 0 May 31, 2014 Active Pantoprazole Sodium [Protonix] 40 MG PO twice [...] PO daily November 19, 2016 Active Hydrocodone/Acetaminophen [[place] 5-325 Tablet] 1 TAB PO every 6 hours as needed PRN For PAIN 40 November 19, 2016 Active Misc Items (Oxygen) 2 L NA hs and prn when@rest 0 November 19, 2016 Active Polyethylene Glycol 3350 [Miralax] 17 GM PO every other day November Active Simethicone 80 MG PO three times a day 0 November 19, 2016 Active Vit C/Vit E/Lutein/Min/[place]amm[place]-3 [Ocuvite Softgel] 1 CAP PO daily 0 December 02, [...] 2017 Active Bumetanide 1 MG PO daily September 09, 2017 Active Potassium Chloride 40 MEQ PO daily 120 September 09, 2017 Active 40meq =4 tablets Discontinued Medications Medication Dose Units Route Sig [...] October 02, 2011 October 13, 2013 Discontinued Hammond-3 Fatty Acids [[place]amm[place]-3] 1 CAP PO daily 0 October 02, [...] Discontinued Anastrozole [Arimidex] 1 MG PO daily August 14, 2013 November 21, 2013 Discontinued [...] April 30, 2014 June 19, 2014 Discontinued Lisinopril 10 MG PO daily 90 [...] November 19, 2016 December 02, 2016 Discontinued Problem List Active Problems Medical Problem Onset Date Status Personal history of breast cancer Active S/P placement of cardiac pacemaker Active History of cardiac catheterization Active H/O mitral valve replacement with mechanical valve 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 Bedside Glucose April 26, 2017 9:26pm 123 mg/dL High 65-99 POINT-OF- CARE TESTING PERFORMED BY PERSONNEL OF: [facility] [address] [place] [address] Chief Complaint and Reason for Visit Encounter Admit Date Chief Complaint Reason for Visit Departed Physician/Provider Office Visit February 15, 2018 2:17pm FOLLOW UP 6M; DEVICE CHECK; LABS PRIOR Hospital Discharge Instructions No known hospital discharge instructions. Hospital Discharge Medications Medication Dose Units Route Sig Qty Days Order Date Status Instructions Carvedilol 6.25 mg PO twice a day [...] MG PO daily October 02, 2011 Discontinued [place]-3 Fatty Acids 1 CAP PO daily October [...] Active Warfarin Sodium 5 MG PO DIRECTED 60 April 09, 2014 Discontinued Take 1 tablet [...] twice a day 0 May 31, 2014 Active Lisinopril 10 MG PO daily June 19, [...] 0 November 19, 2016 Active Vit C/Vit E/Lutein/Min/[place]amm[place]-3 1 CAP PO daily 0 December 02, [...] MG PO daily 90 September 09, 2017 Active Potassium Chloride 40 MEQ PO daily 120 September 09, 2017 Active 40meq =4 tablets Encounters Encounter Facility Location Admit/Visit Date Discharge/Departure Date Attending Provider Departed Physician/Provider Office Visit [facility] February 15, 2018 2:17pm February 15, 2018 2:30pm Julee Chung Registered Referred [facility] January 27, 2018 11:17am Glenn Ruiz Registered Inpatient [facility] January 27, 2018 12 :00am Sagrario Craig Registered Inpatient [facility] January 26, 2018 11:59pm Luis Felipe Brown Registered Inpatient [facility] January 24, 2018 11 :59pm Antwan Godinez Registered Inpatient [facility] January 18, 2018 12: 00am Antwan Godinez Registered Inpatient [facility] December 29, 2017 11:59pm Luis Felipe Brown Registered Inpatient [facility] December 01, 2017 11:59pm Luis Felipe Brown Registered Inpatient [facility] November 03, 2017 11:59pm [facility] October 29, 2017 9:50am October 29, 2017 11:00pm Luis Felipe Brown Registered Inpatient [facility] October 25, 2017 4:02pm Julieta Guzman Registered Inpatient [facility] October 08, 2017 12:00am Antwan Godinez Registered Inpatient [facility] September 11:59pm Luis Felipe Brown Registered Inpatient [facility] September 16, 2017 11:59pm Remberto King Registered Physician/Provider Office Visit [facility] September 09, 2017 10:00am Remberto King Registered Physician/Provider Office Visit [facility] On[facility] August 24, 2017 10:30am Luis Felipe Brown [facility] NEPH Patient Bill July 27, 2017 11 :40am July 27, 2017 Ivy, Mohsen Registered Physician/Provider Office Visit [facility] Nephrology [facility] July 27, 2017 10:40am Ivy, Mohsen Departed [facility] July 22, 2017 9:45am July 22, 2017 Remberto King Registered Physician/Provider Office Visit [facility] July 06, 2017 11:45am Remberto King Discharged Inpatient [facility] Cardiac Progressive Care Unit April 26, 2017 2:40pm April 27, 2017 1:00pm Yolis Waggoner Registered Physician/Provider Office Visit [facility] February 24, 2017 3:30pm Luis Felipe Brown Functional Status No known functional status. Immunizations No known immunizations. Payers Payer Name Policy Type Covered Constitution Party Covered Constitution Party Id Relationship Subscriber Subscriber Id Medicaid [id number] Other [id number] Self / Same As Patient [id number] Self Pay Other [facility] Medicare Solutions Medicare [id number] Self / Same As Patient [id number] Plan of Care No Known Plan of Care Information Social History No known social history. Vital Signs Vital Reading Result Reference Range Collection Date/Time Height 5 ft 3 in February 15, 2018 2:27pm Weight 146 lb February 15, 2018 2:27pm Temperature n/a Pulse 60 BPM 60-90 February 15, 2018 2:27pm Respiration n/a Pulse Oximetry n/a Blood Pressure Systolic 116 100-180 February 15, 2018 2:27pm Blood Pressure Diastolic 60 60-90 February 15, 2018 2:27pm Body Mass Index 25.8 February 15, 2018 2:27pm
--- OUTSIDE RECORDS SUMMARY | 2018-12-08 01:24 | XMS REPORT | Continuity of Care Document ---
Author Author [facility] Organization [facility] Address [address] [place] [address] Phone Unavailable Support Name Relationship Address Phone Enedina Her MD [facility] Caregiver [facility] [address] [place] [address] Physician, No Referring Caregiver Unknown Unavailable Toyin Harirs DO Caregiver [facility] [address] [place] [address] UNKNOWN Caregiver Unknown Unavailable SHAUNA [place] [address] Insurance Providers Payer Name Policy Number Subscriber Name Relationship [facility] Medicare [employer] [id number] Weston Michelle A Self / Same As Patient Medicaid [employer] [id number] Weston Michelle Self / Same As Patient Advance Directives Directive Response Recorded Date/Time Do You Have A Living Will? Yes 11/27/14 6:14am Do You Have a DPOA? Yes 11/27/14 6:14am Problems Medical Problems Problem Onset Date Status Breast (Female) Cancer 01/14/2012 Active Congestive heart failure (CHF) 04/08/2014 Active Nonischemic cardiomyopathy Unknown Active Afib Unknown Active Atrial fibrillation Unknown Active Pacemaker Unknown Active Pacemaker at end of battery life 12/19/2014 Active Surgical Problems Problem Onset Date Recorded Date/Time Status H/O mitral valve replacement Unknown 06/19/2014 2:16pm Active S/P TVR (tricuspid valve replacement) Unknown 06/19/2014 2:16pm Active Medications Medication Dose Route Sig Days/Qty Instructions Order Date Discontinued Date Status Anastrozole (Arimidex) 1 Mg PO DAILY 30 Qty 12/20/08 12/26/08 Discontinued Potassium Chloride 103 Meq PO DAILY 60 Qty 12/21/08 09/02/12 Discontinued Aspirin 81 Mg PO DAILY 30 Qty 12/21/08 Active Digoxin (Lanoxin 250 Mcg) 250 Mcg PO DAILY 12/21/08 11/15/13 Discontinued Levothyroxine Sodium (Levoxyl) 112 Mcg PO DAILY 30 Qty 12/21/08 Discontinued Furosemide 10 Mg PO DAILY 30 Qty 12/21/08 04/09/14 Discontinued Ascorbic Acid 500 Mg PO DAILY 12/16/09 10/02/11 Discontinued Multivitamins 1 Tab PO DAILY 12/21/08 09/09/12 Discontinued Warfarin Sodium (Coumadin) 2.5 Mg PO QMWF 12/21/08 10/02/11 Discontinued Warfarin Sodium (Coumadin) 5 Mg PO QT TH S WALKER 12/21/08 10/02/11 Discontinued Docusate Sodium (Colace) 100 Mg PO TWICE A DAY 60 Qty 12/21/08 Active Ferrous Sulfate 1 Tab PO THREE TIMES A DAY For 12/21/08 Active Hydrocodone Bit/Acetaminophen (Vicodin 5/500 Tab) 1-2 Tab PO EVERY 4 HOURS NEEDED For PAIN 12/21/08 Active Anastrozole (Arimidex) 1 Mg PO DAILY 30 Qty 12/26/08 04/24/09 Discontinued Anastrozole (Arimidex) 1 Mg PO DAILY 30 Qty 04/24/09 12/21/11 Discontinued Simvastatin 20 Mg PO DAILY 12/16/09 Active Montelukast Sodium (Singulair 10 Mg) 20 Mg PO DAILY WITH SUPPER For ALLERGIES 30 Qty 12/16/09 04/09/14 Discontinued Zinc 50 Mg PO DAILY 12/16/09 Active Levothyroxine Sodium 200 Mcg PO DAILY 10/02/11 10/13/13 Discontinued Warfarin Sodium (Coumadin) 2 Mg PO 30 Qty 10/02/11 01/14/12 Discontinued Warfarin Sodium (Coumadin) 3 Mg PO DAILY 30 Qty 10/02/11 01/14/12 Discontinued Potassium Chloride 20 Meq PO DAILY 30 Qty ON HOLD 10/02/11 01/14/12 Discontinued Ascorbate Calcium 500 Mg PO 10/02/11 Active [place]-3 Fatty Acids (Fish Oil) 1 Cap PO DAILY 10/02/11 10/13/13 Discontinued Lutein 6 Mg PO DAILY 10/02/11 10/13/13 Discontinued Anastrozole (Arimidex) 1 Mg PO DAILY 30 Qty 12/21/11 07/18/12 Discontinued [warfarin] 5 Mg PO DAILY For 01/14/12 11/21/13 Discontinued [Bra] 1 Qty 02/04/12 10/13/13 Discontinued Anastrozole (Arimidex) 1 Mg PO DAILY 30 Qty 07/18/12 02/21/13 Discontinued Cholecalciferol 1,000 Unit PO DAILY 09/02/12 10/13/13 Discontinued Anastrozole (Arimidex) 1 Mg PO DAILY 30 Qty 02/21/13 08/14/13 Discontinued Anastrozole (Arimidex) 1 Mg PO DAILY 30 Qty 08/14/13 11/21/13 Discontinued Cholecalciferol 5,000 Unit PO DAILY For supplement 10/13/13 Active Levothyroxine Sodium 100 Mcg PO DAILY For HYPOTHYROIDISM 10/13/13 Active Beta-Carotene(A) W-C & E/Min 1 Tab PO DAILY For SUPPLEMENT 10/13/13 Active Albuterol/Ipratropium 3 Ml INH FOUR TIMES DAILY PRN SHORTNESS OF BREATH 90 Qty 10/13/13 Active Diphenhydramine HCl 25 Mg PO NEEDED For ALLERGIES 30 Qty 10/13/13 Active Carboxymethylcellulose Sodium 1 Drops BOTH EYES FOUR TIMES DAILY For DRY EYES 10/13/13 Active Isosorbide Mononitrate (Imdur) 15 Mg PO BEDTIME 15 Qty 11/15/13 Discontinued Digoxin 125 Mcg PO DAILY 90 Qty 11/15/13 04/04/14 Discontinued Lisinopril 5 Mg PO BEDTIME 90 Qty 11/15/13 03/20/14 Discontinued Warfarin Sodium (Coumadin) 5 Mg PO DAILY 30 Qty 11/21/13 04/09/14 Discontinued Anastrozole (Arimidex) 1 Mg PO DAILY 90 Qty 11/21/13 04/26/14 Discontinued Carvedilol 6.25 Mg PO TWICE A DAY 180 Qty 03/20/14 12/17/14 Discontinued Bumetanide 1 Mg PO DAILY 30 Qty 04/09/14 05/31/14 Discontinued Warfarin Sodium (Coumadin) 5 Mg PO DIRECTED 60 Qty Take 1 tablet on Wednesday, Wednesday, Wednesday, Wednesday, and Wednesday and 04/09/14 10/16/14 Discontinued Montelukast Sodium (Singulair 10 Mg) 10 Mg PO DAILY 30 Qty 04/09/14 Active Lisinopril 5 Mg PO TWICE A DAY 60 Qty 04/09/14 04/09/14 Discontinued Lisinopril 5 Mg PO TWICE A DAY 30 Qty 5 MG=1/2 TABLET at bedtime 04/30/14 Discontinued Nitroglycerin 0.4 Mg SL DIRECTED 25 Qty chest pain. If chest pain not resolved, to ER/911 04/11/14 Active Lisinopril 10 Mg PO DAILY 30 Qty 04/30/14 06/19/14 Discontinued Bumetanide 1 Mg PO DIRECTED 05/31/14 Active Lisinopril 10 Mg PO DAILY 90 Qty 06/19/14 09/28/14 Discontinued Spironolactone 25 Mg PO DAILY 90 Qty 06/19/14 06/19/14 Discontinued Famotidine 20 Mg PO BEDTIME 30 Qty 06/19/14 Active Spironolactone 12.5 Mg PO DAILY 45 Qty 06/19/14 Active Lisinopril 5 Mg PO DAILY 15 Qty 5MG=ONE HALF TABLET 09/28/14 Active Warfarin Sodium 4.5 Mg PO DAILY 30 Qty 10/16/14 Active Carvedilol 6.25 Mg PO TWICE A DAY 180 Qty 12/17/14 Active Cephalexin Monohydrate 500 Mg PO THREE TIMES A DAY 10 Days 12/19/14 Active Social History Social History Problem Response Recorded Date/Time History of Street Drugs? No 06/19/2014 1:29pm Hx Alcohol Use No 06/19/2014 1:29pm Query Response Start Date Stop Date Smoking status: Never smoker Hospital Discharge Instructions No hospital discharge instructions. Plan of Care Prescriptions See Medications Section Follow-up Orders CBC W/Manual Diff CMP CT Chest W/WO BMP CBC W/Manual Diff CMP CT Chest W/WO Mammo Diag Unil-Rt CBC W/Manual Diff Lanoxin CBC W/Manual Diff CMP Lanoxin Lanoxin US Extrem Non Vas-Rt CBC W/Manual Diff CMP Bone Density Study Mammo Diag Unil-Rt CBC W/Manual Diff CMP BMP BMP BMP PT W/INR BMP EKG- 12 Lead CBC W/Manual Diff CBC W/Manual Diff CMP CBC W/Manual Diff CBC W/Manual Diff CBC W/Manual Diff Mammo Diag Unil-Rt BMP BMP Associate Counsel Procedure BMP PT W/INR CBC w/Auto Diff CBC W/Manual Diff CMP Functional Status No functional status results. Allergies, Adverse Reactions, Alerts Allergen Type Severity Reaction Status Last Updated ciprofloxacin HCl Adverse Reaction Intermediate Confusion Active 09/17/09 Ciprofloxacin Lactate Adverse Reaction Intermediate Confusion Active 09/17 Ciprofloxacin Adverse Reaction Intermediate Confusion Active 09/17/09 Immunizations No immunization records. Vital Signs Acute Vital Signs Vital Response Date/Time Temperature (Fahrenheit) 98.0 degrees F (97.6 - 99.5) Pulse Pulse Rate 59 bpm (60 - 100) Respiratory Rate 20 bpm (10 - 24) Oxygen Saturation O2 Sat by Pulse Oximetry 95 % (93 - 100) Blood Pressure 112/44 mm Hg Blood Pressure Mean 66 mm Hg Height 5 ft 3 in Weight 145 lb Body Mass Index 25.7 kg/m^2 Ambulatory Vital Signs Vital Response Date/Time Height 5 ft 3 in 10/23/2014 1:01pm Weight 145 lbs 10/23/2014 1:01pm Temperature, Oral 97.8 degrees F 10/23/2014 1:01pm Blood Pressure, Sitting 119/60 mm Hg 10/23/2014 1:01pm Pulse Rate 82 bpm 10/23/2014 1:01pm Respiration Rate 20 bpm 10/23/2014 1:01pm Body Surface Area 1.72 m2 10/23/2014 1:01pm Body Mass Index 25.7 kg/m2 10/23/2014 1:01pm Results Test Source Date Result Interp. Ref. Range Comments AST/ALT Ratio April 09, 2014 4:54am 1.428 N 0.10-40.00 Absolute Neutrophil November 16, 2008 6:48am 3912 This is a calculated value. Activated Partial Thromboplast Time April 08, 2014 4:49am 39 seconds H 22-34 The therapeutic range for unfractionated heparin therapy is1.5-2.5 times the mean of the reference interval. In patients in whom there is a apparent heparin resistance, a heparin level by an anti-Xa method is available off-site. Alanine Aminotransferase (ALT/SGPT) April 09, 2014 4:54am 21 U/L N 6- 29 Albumin April 09, 2014 4:54am 3.8 g/dL N 3.6-5.1 Alkaline Phosph Iso-Macro Hepatic March 14, 2009 3:34pm 0 % <=0 Alkaline Phosphatase April 09, 2014 4:54am 66 U/L N 33-130 Alkaline Phosphatase Iso-Bone March 14, 2009 3:34pm 22 % L 28-66 Alkaline Phosphatase Iso-Intestine March 14, 2009 3:34pm 0 % L 1-24 Alkaline Phosphatase Iso-Liver March 14, 2009 3:34pm 78 % H 25-69 Alkaline Phosphatase Iso-Placenta March 14, 2009 3:34pm 0 % <=0 Test Performed at:[facility]/[address] [address] GILBERTO PARK MD Anion Gap April 09, 2014 4:54am 5 L 7-17 Aspartate Amino Transf (AST/SGOT) April 09, 2014 4:54am 30 U/L N 10-35 BUN/Creatinine Ratio April 09, 2014 4:54am 27 H 7-25 Band Neutrophils November 19, 2008 7:00am 8 % H 0-5 Basophils # April 09, 2014 4:54am 0.01 1000/uL N 0.00-0.20 Basophils # (Auto) November 22, 2008 6:07am 0.0 1000/uL N 0.00-0.20 Basophils % April 09, 2014 4:54am 0.4 % Basophils (%) (Auto) November 22, 2008 6:07am 0.5 % N () Basophils (Manual) November 19, 2008 7:00am 0 % N 0-2 Bedside Glucose April 08, 2014 9:14pm 104 mg/dL 65-110 POINT-OF- CARE TESTING PERFORMED BY PERSONNEL OF:[address] [place] [address] Bedside Stool Occult Blood November 20, 2008 6:28am Positive H () Bedside Troponin I April 07, 2014 2:17pm < 0.05 <=0.09 POINT-OF- CARE TESTING PERFORMED BY PERSONNEL OF:[address] [place] [address] Blast Cells November 19, 2008 7:00am Not Performed 0 Blood Urea Nitrogen April 09, 2014 4:54am 18 mg/dL N 7-25 C-Reactive Protein November 12, 2008 3:04pm 11.1 mg/dL H <0.8 Calcium Level April 09, 2014 4:54am 9.1 mg/dL N 8.6-10.2 Calculated Osmolality April 09, 2014 4:54am 289 mOSM/kg N 280-300 Carbon Dioxide Level April 09, 2014 4:54am 33.2 mmol/L H 19.0-30.0 Chloride Level April 09, 2014 4:54am 101 mmol/L N 98-110 Cholesterol Level October 14, 2013 4:21am 133 mg/dL N 125-199 Cholesterol/HDL Ratio October 14, 2013 4:21am 1.96 N <5.00 INTERPRETATION :LDL-Cholesterol Therapeutic Goal: <100 mg/dL if CHD is present <130 mg/dL if no CHD and 2 or more risk factors <160 mg/dL if no CHD Coronary Heart Disease (CHD) Risk Factors: 1+ Men >44 years 1+ Women >54 years 1+ Hypertension 1+ Current smoker 1+ Family history of premature CHD 1+ Diabetes mellitus 1+ HDL Cholesterol <40 mg/dL 1+ HDL cholesterol >59 mg/dL Corrected Calcium April 09, 2014 4:54am 9.5 mg/dL N 8.6-10.2-calc Creatine Kinase April 07, 2014 1:55pm 100 U/L N 29-143 EXTRA BLUE,NO GEL Creatine Kinase MB April 07, 2014 1:55pm 2.7 ng/mL N <=5.0 EXTRA BLUE, NO GEL Creatine Kinase MB Relative Index April 07, 2014 1:55pm 3 % N <6 EXTRA BLUE,NO GEL Creatinine April 09, 2014 4:54am 0.66 mg/dL N 0.60-0.88 Digoxin Level January 29, 2010 7:58am 0.9 mcg/L N 0.8-2.0 INTERPRETATION: Subtherapeutic......................... <0.8 mcg/L Therapeutic....................... 0.8 - 2.0 mcg/L Toxic: up to 2 years old.................... >2.7 mcg/L 2 years - Adult...................... >2.4 mcg/L Results may be falsely elevated if patient has been treated with Digoxin Immune JOSE ARMANDO (Digibind) due to interference with the digoxin immunoassay measurement. Valid results can usually be obtained within 2-3 days after last dose for patients with normal renal function. A week or more may be required for patients with imparied renal function. Digoxin-like immunoreactive substances (DLIS) or protein-based interferences have been identified in blood from acutely ill patients with renal failure, excessive fluid retention, hepatic and/or other organ failure, in newborns, and in women in the third trimester. Falsely elevated digoxin assay results can occur in samples from such patients. Interpretation of results from such patients requires caution. Eosinophils # April 09, 2014 4:54am 0.09 1000/uL N 0.01-0.50 Eosinophils # (Auto) November 22, 2008 6:07am 0.2 1000/uL N 0.01-0.50 Eosinophils % April 09, 2014 4:54am 3.2 % Eosinophils (%) (Auto) November 22, 2008 6:07am 3.4 % N () Eosinophils (Manual) November 19, 2008 7:00am 1 % N 0-4 Erythrocyte Sedimentation Rate November 12, 2008 3:04pm 60 mm/HR H 0-30 Estimated GFR () April 09, 2014 4:54am 97 N >60 Units : mL/min/1.73m2) Estimated GFR (Non- April 09, 2014 4:54am 83 N >60 Units: mL/min/1.73m2) Ferritin April 09, 2014 8:30am 162 ng/mL N 20-288 Fibrin Degradation Products, Quant November 12, 2008 3:04pm 2.7 mg/L N 0.4- 3.0 D-dimer of less than 1.0 mg/L and otherwise normal patient history=LOW PROBABILITY OF DVT or PE. D-dimer greater than 1.0 mg/L=CONTINUE INVESTIGATION. COMMENT: Elevated concentrations of d-dimer may be indicative of the presence of a clot and have been reported in DVT, PE, and DIC. Increases in D-dimer concentrations observed with thromboembolic events can be variable due to localization, extension, and age of thrombosis. Therefore a thromboembolic event cannot be excluded with certainty soley based on the D-dimer concentration. D-dimers may also be elevated in old age, , coronary disease, cancer, liver disease, infection, inflammation, hematoma, and stress. Fibrinogen November 12, 2008 3:04pm 358 mg/dL N 200-400 Folate April 09, 2014 8:30am 21.8 ng/mL () Reference Range Low: <3.4 Borderline: 3.4-5.4 Normal: >5.4 THIS TEST WAS PERFORMED AT: [facility] [address] [place] [address] RAMÓN JEAN DO,MPH Globulin April 09, 2014 4:54am 2.4 g/dL N 1.9-3.7 Glucose Level April 09, 2014 4:54am 90 mg/dL N 65-99 Granulocytes # April 09, 2014 4:54am 1.81 1000/uL N 1.50-7.80 Granulocytes (%) April 09, 2014 4:54am 63.6 % HDL Cholesterol October 14, 2013 4:21am 68 mg/dL >=46 Hematocrit April 09, 2014 4:54am 32.7 % L 35.0-45.0 Hemoglobin April 09, 2014 4:54am 10.3 g/dL L 11.7-15.5 Hemoglobin A1c November 12, 2008 3:04pm 5.6 () Result Units: % of total HgbNON-DIABETIC: <6.0% Test Performed at: [facility] [place] [address] RUTH ANN HERBERT MD Immature Blood Cells November 19, 2008 7:00am Not Performed 0 Ionized Calcium (Calculated) November 14, 2008 5:31am 4.72 mg/dL L 4.80- 5.60 The normalized ionized calcium represents what the ionized calciumconcentration would have been if the initial pH was 7.40 Ionized Calcium (Measured) November 14, 2008 5:31am 4.57 mg/dL L 4.80-5.60 Iron Level November 12, 2008 3:04pm 10 mcg/dL L 40-160 VERIFIED BY REPEAT ANALYSIS LDL Cholesterol, Calculated October 14, 2013 4:21am 52 mg/dL *[facility] Lab Scanned Report December 17, 2014 11:44am DHC - BMP/PT/INR/CBC [id number] Lactate Dehydrogenase November 12, 2008 3:04pm 223 U/L N 120-250 Lymphocytes # April 09, 2014 4:54am 0.63 1000/uL L 0.85-3.90 Lymphocytes # (Auto) November 22, 2008 6:07am 1.0 1000/uL N 0.85-3.90 Lymphocytes % April 09, 2014 4:54am 22.2 % Lymphocytes (%) (Auto) November 22, 2008 6:07am 15.7 % N () Lymphocytes (Manual) November 19, 2008 7:00am 12 % L 20-44 Magnesium Level April 09, 2014 4:54am 2.2 mg/dL N 1.5-2.5 Mean Corpuscular Hemoglobin April 09, 2014 4:54am 30 pg N 27-33 Mean Corpuscular Hemoglobin Concent April 09, 2014 4:54am 32 g/dL N 32- 36 Mean Corpuscular Volume April 09, 2014 4:54am 95 fL N 80-100 Mean Platelet Volume April 09, 2014 4:54am 10.2 fL N 8.7-11.9 Metamyelocytes % November 19, 2008 7:00am Not Performed 0 Monocytes # April 09, 2014 4:54am 0.30 1000/uL N 0.20-0.95 Monocytes # (Auto) November 22, 2008 6:07am 0.5 1000/uL N 0.20-0.95 Monocytes % April 09, 2014 4:54am 10.6 % Monocytes (%) (Auto) November 22, 2008 6:07am 8.2 % N () Monocytes (Manual) November 19, 2008 7:00am 7 % N 2-9 Myelocytes % November 19, 2008 7:00am Not Performed 0 Non-HDL Cholesterol Calculated October 14, 2013 4:21am 65 mg/dl N *[facility] Interpretation:Non-HDL Cholesterol Goal: <130 mg/dl if CHD is present <160 mg/dl if no CHD and 2 or more risk factors <190 mg/dl if no CHD Nucleated Red Blood Cells November 19, 2008 7:00am Not Performed 0 Nucleated Red Blood Cells # November 22, 2008 6:07am Not Performed 0 Nucleated Red Blood Cells % November 22, 2008 6:07am Not Performed Percent Iron Saturation November 12, 2008 3:04pm 4 % (calc) L 15-50 Test Performed at:[facility] [address] [place] [address] RUTH ANN HERBERT MD Percent Reticulocyte Count November 12, 2008 3:04pm 4.7 % H 0.5-1.5 Phosphorus Level February 01, 2010 7:25am 2.7 mg/dL N 2.1-4.3 Plasma Cells November 19, 2008 7:00am Not Performed 0 Platelet Count April 09, 2014 4:54am 79 1000/cmm L 140-400 Platelet Morphology November 19, 2008 7:00am Normal NORMAL Potassium Level April 09, 2014 4:54am 3.9 mmol/L N 3.5-5.0 Prealbumin January 30, 2010 7:35pm 12 mg/dl L 17-34 Pro-B-Type Natriuretic Peptide April 07, 2014 1:55pm 1388 pg/mL H <= 450 N-terminal pro-BNP is indicated as an aid in the diagnosisof individuals suspected of having congestive heart failure (CHF). Normal concentrations virtually exclude the diagnosis of CHF and very high levels effectively diagnose the condition. Prolymphocytes November 19, 2008 7:00am Not Performed 0 Promonocytes November 19, 2008 7:00am Not Performed 0 Promyelocytes November 19, 2008 7:00am Not Performed 0 Prothromb Time International Ratio December 19, 2014 7:16am 1.6 H 0.9-1.1 INR reference interval applies to patients not onanticoagulant therapy. The INR is a calculated value and is used to guide oral anticoagulation therapy. Recommeneded INR Range Moderate Intensity Warfarin Therapy 2.0 - 3.0 Higher Intensity Warfarin Therapy 2.5 - 3.5 Prothrombin Time December 19, 2014 7:16am 17.1 seconds H 9.0-11.5 Red Blood Cell Morphology November 19, 2008 7:00am Normal NORMAL Red Blood Count April 09, 2014 4:54am 3.43 MIL/uL L 3.80-5.10 Red Cell Distribution Width April 09, 2014 4:54am 16.1 % H 11.0-15.0 Reticulocyte Count (auto) November 12, 2008 3:04pm 0.1014 X10(6)/uL H 0.0180-0.0915 Segmented Neutrophils November 19, 2008 7:00am 72 % H 50-70 Smudge Cells November 19, 2008 7:00am Not Performed 0 Sodium Level April 09, 2014 4:54am 139 mmol/L N 135-146 Stool Occult Blood Negative Control November 20, 2008 6:28am Acceptable ( ) Stool Occult Blood Positive Control November 20, 2008 6:28am Acceptable ( ) [id number] TESTING PERFORMED BY PERSONNEL OF:[address] [place] [address] Thyroid Stimulating Hormone (TSH) February 01, 2010 7:25am 0.08 u/IU/mL L 0.40-4.50 Thyroxine (T4) February 01, 2010 6:00pm 7.5 ug/dL N 4.7-13.3 Total Bilirubin April 09, 2014 4:54am 0.7 mg/dL N 0.2-1.2 Total Creatine Kinase October 14, 2013 4:21am 65 U/L N 29-143 Total Iron Binding Capacity November 12, 2008 3:04pm 253 mcg/dL 250-450 Total Protein April 09, 2014 4:54am 6.2 g/dL N 6.1-8.1 Total Triiodothyronine February 01, 2010 6:00pm 62 ng/dL L 76-181 THIS TEST WAS PERFORMED AT:[facility] [place] [address] RAMÓN JEAN DO,MPH Transferrin November 12, 2008 3:04pm 194 mg/dL 188-341 Test Performed at :[facility] [place] [address] RUTH ANN HERBERT MD Triglycerides Level October 14, 2013 4:21am 65 mg/dL N 0-149 <150 mg/dL=Normal 150-199 mg/dL=Borderline High 200-499 mg/dL=High >/=500 mg/dL=Very High Troponin T April 07, 2014 1:55pm < 0.01 ng/mL <0.10 Based on WHO criteria for the definition of AMI, the cutoff(clinical discriminator) value for troponin T is 0.1 ng/mL. Due to the release of kinetics of troponin T, a negative result within the first hours of the onset of symptoms does not rule out myocardial infarction with certainty. If suspected, repeat the test at appropriate intervals. Variant Lymphocytes November 19, 2008 7:00am Not Performed 0 Vitamin B12 Level April 09, 2014 8:30am 544 pg/mL 200-1100 THIS TEST WAS PERFORMED AT:[facility] [address] [place] [address] RAMÓN JEAN DO,MPH White Blood Cell Morphology November 19, 2008 7:00am Normal NORMAL White Blood Count April 09, 2014 4:54am 2.8 1000/cmm L 3.8-10.8 Procedures No known history of procedures. Encounters Encounter Location Date/Time Office Visit [facility] 10/23/14 1:00pm Office Visit [facility] 10/16/14 10:15am Office Visit [facility] 10/09/14 11:00am Office Visit [facility] 08/27/14 11:00am Registered Provider [facility] 08/27/14 12:00am Recent Diagnosis Breast (Female) Cancer Anemia
--- OUTSIDE RECORDS SUMMARY | 2018-12-08 01:25 | XMS REPORT | Continuity of Care Document ---
Author Author [facility] Organization [facility] Address [address] [place] [address] Phone Unavailable Care Team Providers Care Relations Director Name Role Phone Concha Harriseste Donna DO Unavailable Insurance Providers Payer Name Policy Number Subscriber Name Relationship [facility] Medicare Solutions [id number] Weston Michelle A Self / Same As Patient Medicaid Txix [id number] Weston Michelle A Self / Same As Patient Advance Directives Directive Response Recorded Date/Time Do You Have A Living Will? Yes 10/16/16 7:20pm Do You Have a DPOA? 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 Acute NYHA class 3 acute on chronic systolic heart failure Unknown Acute Pancytopenia Unknown Acute CKD (chronic kidney disease) Unknown Acute Surgical Problem Onset Date Status [...] Start Date Docusate Sodium (Colace) 100 Mg 100 Mg Oral Twice A Day 60 12/21/08 Ferrous Sulfate 1 Tab Oral Daily for 12/21/08 Hydrocodone Bit/Acetaminophen (Vicodin 5/500 Tab) 1 Tab 1-2 Tab Oral Every 4 Hours As Needed for Pain 12/21/08 Zinc 50 Mg 50 Mg Oral Daily 12/16/09 Ascorbate Calcium 500 Mg 500 Mg Oral Twice A Day 10/02/11 Beta-Carotene(A) W-C & E/Min 1 Tab 1 Tab Oral Daily for Supplement 10/13/13 Albuterol/Ipratropium 3 Ml 3 Ml Inhalation Four [...] 04/11/14 Bumetanide 1 Mg 1 Mg Oral Twice A Day 05/31/14 Warfarin Sodium 5 Mg 6 Mg Oral As Directed 30 01/02/16: 6 mg T//Sat and 5.5 mg ///Sun 10/16/14 Pantoprazole Sodium (Protonix) 40 Mg 40 Mg [...] Mg Oral Twice A Day 180 09/18/16 Past Home Medications Medication Directions Ordered Status [...] Oral Qt Th S [place] 12/21/08 Discontinued Anastrozole (Arimidex) 1 Mg Tablet, [...] Tab.prt.sr, 20 Meq Oral Daily 10/02/11 Discontinued [place]-3 Fatty Acids (Fish Oil) 1 Cap Capsule, [...] 5000 Unit Oral Daily for Supplement Discontinued Isosorbide Mononitrate [...] Tablet, 5 Mg Oral Daily 09/28/14 Discontinued Carvedilol 6.25 Mg Tablet, 6.25 Mg [...] Tablet, 5 Mg Oral Bedtime 05/12/16 Discontinued Social History Social History Problem Response Recorded Date/Time History of Street Drugs? No 10/15/2015 12:04pm Hx Alcohol Use No 10/15/2015 12:04pm Query Response Start Date Stop Date Smoking status: Never smoker Hospital Discharge Instructions No hospital discharge instructions. Plan of Care Discharge Date 10/28/16 11:59pm Instructions/Education Provided Instructions from visit on: 09/10/16 Prescriptions See Medication Section Functional Status No functional status results. Allergies, Adverse Reactions, Alerts Allergen Type Severity Reaction Status Last Updated Ciprofloxacin Lactate Adverse Reaction Intermediate Confusion Active 09/17 Diazepam Adverse Reaction Unknown Active 01/02/16 Immunizations No immunization records. Vital Signs Ambulatory Vital Signs Vital Response Date/Time Temperature 97.9 degrees F 10/19/2016 4:45pm Blood Pressure 146/67 mm Hg 10/19/2016 4:45pm Pulse Rate 61 bpm 10/19/2016 4:45pm Respiration Rate 22 bpm 10/19/2016 4:45pm Pulse Oximetry Pulse Oximetry 10/19/2016 4:45pm Results Laboratory Results Test Name Result Units Flags Reference Collection Date/Time Result Date/ Time Comments Urine Microalbumin mg/dl < 0.3 mg/dL 08/04/2016 10:40am 08/04/2016 12 :43pm Urine Creatinine (Albumin) 25.66 mg/dL 08/04/2016 10:40am 08/04/2016 12:43pm Urine Microalbumin/Creatinine Ratio <=29 mg/g <30 08/04/2016 10:40am 12:43pm The ADA (Diabetes Care 26:S94-S98,2003) defines abnormalities in albumin excretion as follows: CATEGORY (RESULT mg/g CREATININE) Normal <30 Microalbuminuria 30-299 Clinical Albuminuria > ra=162 The ADA recommends that at least two of three specimens collected within a 3-6 month period be abnormal before considering a patient to be within a diagnostic category. Ambulatory Laboratory Results Test Name Result Units Flags Reference Result Date/Time Comments Prothromb Time International Ratio 3.4 10/26/2016 9:47am Prothrombin Time 36.9 seconds 10/26/2016 9:47am Bedside Urine Bilirubin (LAB) NEGATIVE(N=NEG) 08/04/2016 10:30am Bedside Urine Blood HEMOLYZED TRAC(N=NEG 08/04/2016 10:30am Bedside Urine Clarity CLEAR (N=CLEAR) 08/04/2016 10:30am Bedside Urine Color (LAB) PALE STRAW (N=CLEAR) 08/04/2016 10:30am Bedside Urine Glucose (UA) NEGATIVE (N=NEG) 08/04/2016 10:30am Bedside Urine Ketones (LAB) NEGATIVE (N=NEG) 08/04/2016 10:30am Bedside Urine Leukocyte Esterase (L NEGATIVE (N=NEG) 08/04/2016 10: 30am Bedside Urine Nitrite (LAB) NEGATIVE (N=NEG) 08/04/2016 10:30am Bedside Urine pH (LAB) 6.5 (N=5-6) 08/04/2016 10:30am Bedside Urine Protein (LAB) NEGATIVE (N=NEG) 08/04/2016 10:30am Bedside Urine Specific [place] (LAB 1.010(N=1.000-1.025) 08/04/2016 10:30am Bedside Urine Urobilinogen (LAB) 0.2 mg/dL (N=<=1.0) 08/04/2016 10: 30am Procedures Procedure Status Date Provider(s) UA w/o micro (Office) Completed 07/31/15 UA w/o micro (Office) Completed 02/06/16 Latitude Completed 03/26/16 UA w/o micro (Office) Completed 08/04/16 Latitude Completed 10/19/16 Encounters Encounter Location Arrival/Admit Date [facility] 10[facility]28/16 11:59pm Toyin Harris DO Office [facility] 10/19/16 1:10pm Eduard Nava M.D. Registered Practice [facility] 10/19/16 1:10pm Eduard Nava M.D. Office Visit [facility] 09/10/16 2:15pm Dewayne Ibarra MD [facility] 08/25/16 2:30pm Luis Felipe Brown MD Registered Provider [facility] [place] 08/04/16 12:10pm Mohsen Haynes MD Office Visit [facility] 08/04/16 10:40am Mohsen Haynes MD
--- OUTSIDE RECORDS SUMMARY | 2018-12-08 01:25 | XMS REPORT | Continuity of Care Document ---
Author Author [facility] Organization [facility] Address [address] [place] [address] Phone Unavailable Care Team Providers Care Die Stamper Name Role Phone Toyin Harris DO PCP Insurance Providers Payer Name Policy Number Subscriber Name Relationship [facility] Medicare Solutions [id number] Weston Michelle A Self / Same As Patient Medicaid Txix [id number] Weston Michelle A Self / Same As Patient Problems Active Problems Medical Problem Onset Date Status Congestive heart failure (CHF) 04/08/2014 Acute Nonischemic cardiomyopathy Unknown Acute Atrial fibrillation Unknown Acute Pacemaker Unknown Acute Actinic keratosis Unknown Acute Anemia Unknown Acute Thrombocytopenia Unknown Acute Invasive ductal carcinoma of left breast Unknown Acute Personal history of breast cancer Unknown Acute Blood loss anemia Unknown Acute Chronic a-fib Unknown Acute Pacemaker-dependent due to [place] cardiac rhythm insufficient to support life Unknown [...] 60 12/21/08 Ferrous Sulfate 1 Tab Oral Three Times A Day for 12/21/08 Hydrocodone Bit/Acetaminophen (Vicodin 5/500 Tab) 1 Tab 1-2 Tab Oral Every 4 Hours As Needed for Pain 12/21/08 Zinc 50 Mg 50 Mg Oral Daily 12/16/09 Ascorbate Calcium 500 Mg 500 Mg Oral Twice A Day 10/02/11 Cholecalciferol 5,000 Unit 5,000 Unit Oral Daily for Supplement Levothyroxine Sodium 100 Mcg 100 Mcg Oral Daily for Hypothyroidism 10/13/13 Beta-Carotene(A) W-C & E/Min 1 Tab 1 [...] Oral As Directed 30 01/02/16: 6 mg T/Th/Sat and 5.5 mg M///Sun 10/16/14 Pantoprazole Sodium (Protonix) 40 Mg 40 Mg Oral Twice A Day 60 Spironolactone (Aldactone 25 Mg*) 25 Mg 12.5 Mg Oral Daily 45 12.5mg=1/2 tab take 1/2 tab daily 08/15/15 Carvedilol 6.25 Mg 6.25 Mg Oral Twice A Day 180 09/23/15 Cyanocobalamin (Vitamin B-12 Injection) 1,000 Mcg/Ml 1,000 Mcg Intramusc Monthly 1 IM INJECTION 02/06/16 Lisinopril 10 Mg 5 Mg Oral Bedtime 45 05/12/16 Past Home Medications Medication Directions Ordered Status [...] Tab.prt.sr, 20 Meq Oral Daily 10/02/11 Discontinued [place]-3 Fatty Acids (Fish Oil) 1 Cap Capsule, [...] Tablet, 1 Mg Oral Daily 08/14/13 Discontinued Isosorbide Mononitrate (Imdur) 30 Mg Tablet, [...] Tablet, 5 Mg Oral Daily 07/08/15 Discontinued Lorazepam 1 Mg Tablet, 1 Mg Oral As Directed 12/04/15 Discontinued Lisinopril 10 Mg Tablet, 5 Mg Oral Bedtime 01/21/16 Discontinued Social History Social History Problem Response Recorded Date/Time History of Street Drugs? No 10/15/2015 12:04pm Hx Alcohol Use No 10/15/2015 12:04pm Query Response Start Date Stop Date Smoking status: Never smoker Hospital Discharge Instructions Current inpatient/outpatient. Discharge instructions are currently unavailable. Plan of Care Prescriptions Functional Status No functional status results. Allergies, Adverse Reactions, Alerts Allergen Type Severity Reaction Status Last Updated ciprofloxacin HCl Adverse Reaction Intermediate Confusion Active 09/17/09 Ciprofloxacin Lactate Adverse Reaction Intermediate Confusion Active 09/17 Diazepam Adverse Reaction Unknown Active 01/02/16 Ciprofloxacin Adverse Reaction Intermediate Confusion Active 09/17/09 Immunizations No immunization records. Vital Signs Ambulatory Vital Signs Vital Response Date/Time Height 5 ft 2.500 in 05/12/2016 2:45pm Weight 145 lbs 05/12/2016 2:45pm Temperature, Oral 98.4 degrees F 05/12/2016 2:45pm Blood Pressure, Sitting, Right Arm 95/48 mm Hg 05/12/2016 2:45pm Pulse Rate 60 bpm 05/12/2016 2:45pm Respiration Rate 12 bpm 05/12/2016 2:45pm Body Surface Area 1.72 m2 05/12/2016 2:45pm Body Mass Index 26.1 kg/m2 05/12/2016 2:45pm Pulse Oximetry Pulse Oximetry 05/12/2016 2:45pm Results Laboratory Results Test Name Result Units Flags Reference Collection Date/Time Result Date/ Time Comments Erythrocyte Sedimentation Rate 26 mm/hr 0-30 06/11/2015 11:24am 2014 12:08pm Percent Reticulocyte Count 1.13 % 0.5-1.5 06/11/2015 11:24am 2014 12:00pm Reticulocyte Count (auto) 0.0353 X10(6)uL 0.0180-0.0915 06/11/2015 11: 24am 06/11/2015 12:00pm White Blood Count 3.2 1000/cmm L 3.8-10.8 06/11/2015 11:40am 06/11/2015 12:38pm Red Blood Count 3.08 MIL/uL L 3.80-5.10 06/11/2015 11:40am 06/11/2015 12 :38pm Hemoglobin 9.3 g/dL L 11.7-15.5 06/11/2015 11:40am 06/11/2015 12:38pm Hematocrit 29.2 % L 35.0-45.0 06/11/2015 11:40am 06/11/2015 12:38pm Mean Corpuscular Volume 95 fL 80-100 06/11/2015 11:40am 06/11/2015 12: 38pm Mean Corpuscular Hemoglobin 30 pg 27-33 06/11/2015 11:40am 06/11/2015 12:38pm Mean Corpuscular Hemoglobin Concent 32 g/dL 32-36 06/11/2015 11:40am 12:38pm Red Cell Distribution Width 14.9 % 11.0-15.0 06/11/2015 11:40am 2014 12:38pm Platelet Count 103 1000/cmm L 140-400 06/11/2015 11:40am 06/11/2015 12: 38pm Mean Platelet Volume 10.6 fL 8.7-11.9 06/11/2015 11:40am 06/11/2015 12: 38pm Segmented Neutrophils 68 % 50-70 06/11/2015 11:40am 06/11/2015 1:11pm Band Neutrophils 3 % 0-5 06/11/2015 11:40am 06/11/2015 1:11pm Lymphocytes 20 % 20-44 06/11/2015 11:40am 06/11/2015 1:11pm Monocytes 5 % 2-9 06/11/2015 11:40am 06/11/2015 1:11pm Eosinophils 4 % 0-4 06/11/2015 11:40am 06/11/2015 1:11pm Basophils 0 % 0-2 06/11/2015 11:40am 06/11/2015 1:11pm Red Blood Cell Morphology 1+ ACANTHOCYTES NORMAL 06/11/2015 11:40am 06/11/2015 1:11pm 1+ SCHISTOCYTES NORMAL 06/11/2015 11:40am 06/11/2015 1:11pm White Blood Cell Morphology TOXIC GRANULATION ND NORMAL 06/11/2015 11: 40am 06/11/2015 1:11pm Platelet Morphology NORMAL NORMAL 06/11/2015 11:40am 06/11/2015 1: 11pm Path Consult Comment Slides sent to Pathologist for review, additional report to follow. N/A 06/11/2015 11:40am 06/11/2015 1:17pm Sodium Level 140 mmol/L 135-146 06/11/2015 11:40am 06/11/2015 12:59pm Potassium Level 4.6 mmol/L 3.5-5.0 06/11/2015 11:40am 06/11/2015 12: 59pm Chloride Level 99 mmol/L 98-110 06/11/2015 11:40am 06/11/2015 12:59pm Carbon Dioxide Level 28.6 mmol/L 19.0-30.0 06/11/2015 11:40am 2014 12:59pm Anion Gap 12 7-06/11/2015 11:40am 06/11/2015 12:59pm Glucose Level 99 mg/dL 65-99 06/11/2015 11:40am 06/11/2015 12:59pm Blood Urea Nitrogen 38 mg/dL H 7-06/11/2015 11:40am 06/11/2015 12: 59pm Creatinine 1.40 mg/dL H 0.60-0.88 06/11/2015 11:40am 06/11/2015 12:59pm Estimated GFR (Non- 35 L >60 06/11/2015 11:40am 2014 12:59pm Units: mL/min/1.73m2) Estimated GFR () 41 L >60 06/11/2015 11:40am 2014 12:59pm Units: mL/min/1.73m2) BUN/Creatinine Ratio 27 H 7-25 06/11/2015 11:40am 06/11/2015 12:59pm Estimated GFR (Cockcroft-Gault) 28.76 ml/min L >30 06/11/2015 11:40am 12:59pm Adjusted body weight used for calculation. Calculated Osmolality 299 mOSM/kg 280-300 06/11/2015 11:40am 2014 12:59pm Total Protein 6.9 g/dL 6.1-8.1 06/11/2015 11:40am 06/11/2015 12:59pm Albumin 4.3 g/dL 3.6-5.1 06/11/2015 11:40am 06/11/2015 12:59pm Globulin 2.6 g/dL 1.9-3.7 06/11/2015 11:40am 06/11/2015 12:59pm Calcium Level 9.6 mg/dL 8.6-10.2 06/11/2015 11:40am 06/11/2015 12:59pm Corrected Calcium 9.7 mg/dL 8.6-10.2-calc 06/11/2015 11:40am 2014 12:59pm Total Bilirubin 0.4 mg/dL 0.2-1.2 06/11/2015 11:40am 06/11/2015 12: 59pm Alkaline Phosphatase 70 U/L 33-130 06/11/2015 11:40am 06/11/2015 12: 59pm Aspartate Amino Transf (AST/SGOT) 62 U/L H 10-06/11/2015 11:40am 12:59pm Alanine Aminotransferase (ALT/SGPT) 55 U/L H -06/11/2015 11:40am 12:59pm AST/ALT Ratio 1.127 0.10-40.00 06/11/2015 11:40am 06/11/2015 12:59pm Ferritin 75 ng/mL 20-288 06/11/2015 11:40am 06/11/2015 12:59pm Rheumatoid Factor 11 IU/mL <14 06/11/2015 11:40am 06/12/2015 3:29pm THIS TEST WAS PERFORMED AT: [facility] [address] [place] [phone] RAMÓN JEAN DO,MPH Hepatitis A IgM Antibody NON-REACTIVE NON-REACTIVE 06/11/2015 11:40am 06/12/2015 10:21am THIS TEST WAS PERFORMED AT: [facility] [address] [place] [phone] RAMÓN JEAN DO,MPH Hepatitis B Core IgM Antibody NON-REACTIVE NON-REACTIVE 06/11/2015 11: 40am 06/12/2015 10:21am THIS TEST WAS PERFORMED AT: [email or web address] [address] RAMÓN JEAN DO,MPH Hepatitis B Surface Antigen NON-REACTIVE NON-REACTIVE 06/11/2015 11: 40am 06/12/2015 10:21am THIS TEST WAS PERFORMED AT: [facility] [address] [address] [place] [address] RAMÓN JEAN DO,MPH Hepatitis C Antibody NON-REACTIVE NON-REACTIVE 06/11/2015 11:40am 10:21am Hepatitis C Ab Signal/Cutoff Ratio 0.04 <1.00 06/11/2015 11:40am 10:21am Effective June 24, 2015, Hepatitis C Antibody (test code 8472) will be revised to automatically reflex to the Hepatitis C Viral RNA, Quantitative, Real-Time PCR assay if the antibody screening result is Reactive. We are instituting this change per the CDC/USPSTF recommendations regarding the HCV diagnostic algorithm. As of June 24, 2015 the name of the test code 8472 will be Hepatitis C Antibody with Reflex to HCV RNA, Quantitative, Real-Time PCR. This change will also be reflected in standard and custom profiles that currently include test code 8472. THIS TEST WAS PERFORMED AT: [facility] [address] [address] [place] [address] RAMÓN JEAN DO,MPH HIV (1&2) Ag and Ab, 4th Generation NON-REACTIVE NON-REACTIVE 2014 11:40am 06/12/2015 8:19am A Nonreactive HIV Ag/Ab result does not exclude HIV infection since the time frame for seroconversion is variable. If acute HIV infection is suspected, a HIV-1 RNA Qualitative TMA test is recommended. PLEASE NOTE: This information has been disclosed to you from records whose confidentiality may be protected by state law. If your state requires such protection, then the state law prohibits you from making any further disclosure of the information without the specific written consent of the person to whom it pertains, or as otherwise permitted by law. A general authorization for the release of medical or other information is NOT sufficient for this purpose. The performance of this assay has not been clinically validated in patients less than 2 years old. For additional information please refer to http://education.Military Wraps.XenoOne/faq/CIP495 (This link is being provided for informational/ educational purposes only.) THIS TEST WAS PERFORMED AT: [email or web address] [address] RAMÓN JEAN DO,MPH Iron Level 38 mcg/dL L 45-160 06/11/2015 11:40am 06/12/2015 6:34am Total Iron Binding Capacity 350 mcg/dL 250-450 06/11/2015 11:40am 06/12 6:34am Percent Iron Saturation 11 % (calc) 11-50 06/11/2015 11:40am 2014 6:34am THIS TEST WAS PERFORMED AT: [email or web address] [address] RAMÓN JEAN DO,MPH Total Protein (PEP) 6.6 g/dL 6.1-8.1 06/11/2015 11:40am 06/12/2015 6: 34am THIS TEST WAS PERFORMED AT: [facility] [address] [address] RAMÓN JEAN DO,MPH Albumin % (PEP) 4.2 g/dL 3.8-4.8 06/11/2015 11:40am 06/12/2015 2:05pm Uxjeb-6-Viqynxqys 0.3 g/dL 0.2-0.3 06/11/2015 11:40am 06/12/2015 2: 05pm Iggno-2-Wduwdnlpe 0.5 g/dL 0.5-0.9 06/11/2015 11:40am 06/12/2015 2: 05pm Beta Globulins 0.4 g/dL 0.4-0.6 06/11/2015 11:40am 06/12/2015 2:05pm Dujx-3-Torpndij 0.3 g/dL 0.2-0.5 06/11/2015 11:40am 06/12/2015 2:05pm Gamma Globulins 0.9 g/dL 0.8-1.7 06/11/2015 11:40am 06/12/2015 2:05pm Protein Electrophoresis Interpret SEE NOTE 06/11/2015 11:40am 06/12 2:05pm No restricted band (M-spike) seen. THIS TEST WAS PERFORMED AT: [email or web address] [address] RAMÓN JEAN DO,MPH Immunoglobulin G 972 mg/dL 694-1618 06/11/2015 11:40am 06/12/2015 12: 05pm Immunoglobulin A 239 mg/dL 81-463 06/11/2015 11:40am 06/12/2015 12: 05pm Immunoglobulin M 100 mg/dL 48-271 06/11/2015 11:40am 06/12/2015 12: 05pm THIS TEST WAS PERFORMED AT: [facility] [address] [place] [phone] RAMÓN JEAN DO,MPH Anti-Nuclear Antibody Screen NEGATIVE NEGATIVE 06/11/2015 11:40am 1:44pm A negative ANAchoice(R) [place] indicates the absence of detectable antibodies to component analytes consisting of dsDNA, Chromatin, PRESS WORKER HELPER, Sm/PRESS WORKER HELPER, Sm, SSA SSB, Susi-1, Centromere B, Scl-70 and Ribosomal P. A negative ANAchoice(R) [place] should be interpreted in the context of the clinical and laboratory findings, and does not rule out autoimmune disease characterized by other autoantibody specificities including autoimmune hepatitis and primary biliary cirrhosis. THIS TEST WAS PERFORMED AT: [email or web address] [address] RAMÓN JEAN DO,MPH Haptoglobin <15 mg/dL L 43-212 06/11/2015 11:40am 06/12/2015 3:13pm Verified by repeat analysis. THIS TEST WAS PERFORMED AT: [email or web address] [address] RAMÓN JEAN DO,MPH Erythropoietin 37.4 mIU/mL H 2.6-18.5 06/11/2015 11:40am 06/12/2015 12: 26pm THIS TEST WAS PERFORMED AT: [email or web address] [address] RAMÓN JEAN DO,MPH Folate >24.0 ng/mL SEE BELOW 06/11/2015 11:40am 06/12/2015 8:14am Reference Range Low: <3.4 Borderline: 3.4-5.4 Normal: >5.4 THIS TEST WAS PERFORMED AT: [email or web address] [address] RAMÓN JEAN DO,MPH Vitamin B12 Level 493 pg/mL 200-1100 06/11/2015 11:40am 06/12/2015 8: 14am THIS TEST WAS PERFORMED AT: [email or web address] [id number] [place] [address] RAMÓN JEAN DO,MPH Ambulatory Laboratory Results Test Name Result Units Flags Reference Result Date/Time Comments Prothromb Time International Ratio 3.1 05/27/2015 8:37am Prothrombin Time 34.1 seconds 05/27/2015 8:37am Bedside Urine Bilirubin (LAB) NEGATIVE(N=NEG) 02/06/2016 9:18am Bedside Urine Blood NEGATIVE(N=NEG) 02/06/2016 9:18am Bedside Urine Clarity CLEAR (N=CLEAR) 02/06/2016 9:18am Bedside Urine Color (LAB) STRAW (N=CLEAR) 02/06/2016 9:18am Bedside Urine Glucose (UA) NEGATIVE (N=NEG) 02/06/2016 9:18am Bedside Urine Ketones (LAB) NEGATIVE (N=NEG) 02/06/2016 9:18am Bedside Urine Leukocyte Esterase (L NEGATIVE (N=NEG) 02/06/2016 9: 18am Bedside Urine Nitrite (LAB) NEGATIVE (N=NEG) 02/06/2016 9:18am Bedside Urine pH (LAB) 6.0 (N=5-6) 02/06/2016 9:18am Bedside Urine Protein (LAB) NEGATIVE (N=NEG) 02/06/2016 9:18am Bedside Urine Specific [place] (LAB 1.005(N=1.000-1.025) 02/06/2016 9:18am Bedside Urine Urobilinogen (LAB) 0.2 mg/dL (N=<=1.0) 02/06/2016 9: 18am Procedures No known history of procedures. Encounters Encounter Location Arrival/Admit Date Discharge/Depart Date Attending Provider Registered Provider Originated [facility] 06/05/16 12:04pm Rufus Salvador [facility] 05/12/16 2:45pm Chelo Silvestre MD Registered Practice [facility] 05/12/16 2:45pm Chelo Silvestre MD Office Visit [email or web address] [place] 03/03/16 8:00am Dewayne Ibarra MD Discharged [facility] 06/11/15 7:54am 06/10/16 11:59pm Radha Pak MD
--- OUTSIDE RECORDS SUMMARY | 2018-12-08 01:26 | XMS REPORT ---
Author Author [facility] Medical Staff Organization [facility] Address [address] [place] [address] Phone [phone] Summary purpose CCDA Sent to HIE Chief Complaint and Reason for Visit No authorized Reason for Visit (Admitting Diagnosis) is available for this visit. Problem list No authorized problems tracked for [...] diagnostic tests and/or laboratory data RESULTS CBC :25:00 Result Normal Range Units White Blood Count 3.19 3.0-11.2 K/uL Red Blood Cells L 3.22 3.99-5.76 x 106/uL Hemoglobin L 10.1 11.7-16.7 g/dl Hematocrit L 31.9 38.7-52.5 % Mean Alice Volume 99.1 86-100 FL Mean Alice Hemoglobin 31.4 27.5-33.5 pg Mean Alice Hemoglobin Conc 31.7 31.3-36.0 g/dl Red Cell Distribution Width 13.6 % Platelet Count L 96 140-375 K/uL Segmented Neutrophil 68.0 40-91 Bands 2.0 Lymphocytes 24.0 8-59 Monocytes 4.0 0-13 Eosinophils 2.0 0-10 Chemistry Group :25:00 Result Normal Range Units Urea Nitrogen (BUN) H 29 9.8-20.1 mg/dl Creatinine H 1.57 0.57-1.11 mg/dl Bun/Creatiinine Ratio 18 Ratio Glucose 94 70-100 mg/dl Sodium 140 136-145 mmol/L Potassium 4.5 3.5-5.1 mEq/l Chloride 101 98-107 mEq/l CO2 29 23-31 mmol/L Anion GAP 10 g/dl Calcium 9.9 8.4-10.5 mg/dl Alkaline Phosphatase 60 40-150 U/L ALT 25 0-55 U/L AST H 35 5.0-34.0 U/L Protein Total 7.2 6.2-8.1 g/dl Albumin 4.3 3.4-4.8 g/dl Bilirubin Total 0.6 0.2-1.2 mg/dl Osmolality Calculation 296 280-300 mOsm/kg eGFR L 32 >=60 ml/min. History of procedures No procedures recorded for this patient visit. Functional status No functional or cognitive status [...]
--- OUTSIDE RECORDS SUMMARY | 2018-12-08 01:26 | XMS REPORT ---
Author Author [facility] Medical Staff Organization [facility] Address [address] [place] [address] Phone [phone] Summary purpose CCDA Sent to DEE Chief Complaint and Reason for Visit Admit Diagnosis 1 HX OF BREAST MALIGNANCY Problem list No authorized problems tracked for [...] diagnostic tests and/or laboratory data RESULTS CBC [id number]:51:00 Result Normal Range Units White Blood Count 4.07 3.0-11.2 K/uL Red Blood Cells L 3.83 3.99-5.76 x 106/uL Hemoglobin L 11.6 11.7-16.7 g/dl Hematocrit L 36.4 38.7-52.5 % Mean Alice Volume 95.0 86-100 FL Mean Alice Hemoglobin 30.3 27.5-33.5 pg Mean [place] Hemoglobin Conc 31.9 31.3-36.0 g/dl Red Cell Distribution Width 13.9 % Platelet Count L 94 140-375 K/uL Neutrophil % 70.0 41.1-91.7 % Lymphocyte % 19.2 7.6-58.5 % Monocyte % 10.1 0-13 % Eosinophil % 0.5 0-10 % Basophil % 0.2 0-7 % Chemistry Group [id number]:51:00 Result Normal Range Units Potassium 4.4 3.5-5.1 mEq/l Hemoglobin A1C H 6.1 4.0-6.0 % Normal Range Non-Diabetic4.0-6.0 Diabetic>7.0 Estimated Avg. Glucose 128.4 mg/dl History of procedures Procedure Code Code Type Description Date Performed Performing Physician [id number] CPT-4 ROUTINE VENIPUNCTURE 08-13-2014 [facility] [id number] CPT-4 COMPLETE CBC W/AUTO DIFF WBC 08-13-2014 ИРИНА MARCOS 86664 CPT-4 GLYCOSYLATED HEMOGLOBIN TEST 08-13-2014 ИРИНА MARCOS 56627 CPT-4 ASSAY OF SERUM POTASSIUM 08-13-2014 ИРИНА MARCOS Functional status No functional or cognitive status [...]
--- OUTSIDE RECORDS SUMMARY | 2018-12-08 01:26 | XMS REPORT | Continuity of Care Document ---
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 Yes 11/19/16 11:53am Do You Have a DPOA? 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 Unknown [...] Glycol 3350 17 Gram 17 Gm Oral Daily 1 11/19/16 Folic Acid 1 Mg 1 Mg Oral Daily 30 11/19/16 Misc Items 2 L Nasal Bedtime 11/19/16 Simethicone 80 Mg 80 Mg Oral Three Times A Day 11/19/16 Blood Sugar Diagnostic 1 Each 1 Packet Sub-Q Twice A Day 11/19/16 Warfarin Sodium 5 Mg 5 Mg Oral Daily for Anticoagulant 30 12/02/16 Vit C/Vit E/Lutein/Min/[place]-3 150 Mg-30 Unit-5 Mg-150 Mg 1 Cap Oral Daily for Supplement 12/02/16 Past Home Medications Medication Directions Ordered Status [...] Tab.prt.sr, 20 Meq Oral Daily 10/02/11 Discontinued [place]-3 Fatty Acids (Fish Oil) 1 Cap Capsule, [...] Discharge Discharge/Dismiss patient: Dismiss/release patient order: Home Return to office appointment: ~ 1-2 months Plan of Care Discharge Date 12/02/16 12:29pm Instructions/Education Provided Instructions from visit on: 11/17/16 Prescriptions See Medication Section Functional Status No functional status results. Allergies, Adverse Reactions, Alerts Allergen Type Severity Reaction Status Last Updated Ciprofloxacin Lactate Adverse Reaction Intermediate Confusion Active 09/17 Diazepam Adverse Reaction Unknown Active 01/02/16 Immunizations No immunization records. Vital Signs Acute Vital Signs Vital Response Date/Time Temperature (Fahrenheit) 98.0 degrees F (97.6 - 99.5) 12/02/2016 10:10am Pulse Pulse Rate 61 bpm (60 - 100) 12/02/2016 12:15pm Respiratory Rate 18 bpm (10 - 24) 12/02/2016 12:15pm Oxygen Saturation O2 Sat by Pulse Oximetry 96 % (93 - 100) 12/02/2016 12:15pm Blood Pressure 117/65 mm Hg 12/02/2016 12:15pm Blood Pressure Mean 94 mm Hg 12/02/2016 10:10am Blood Pressure / Blood Pressure Mean 94 mm Hg 12/02/2016 10:10am Height 5 ft 3 in Weight 146 lb Body Mass Index 25.9 kg/m^2 Ambulatory Vital Signs Vital Response Date/Time Height 5 ft 3 in 11/17/2016 10:07am Weight 152 lbs 11/17/2016 10:07am Blood Pressure, Sitting, Left Arm 141/71 mm Hg 11/17/2016 10:07am Pulse Rate 60 bpm 11/17/2016 10:07am Body Surface Area 1.77 m2 11/17/2016 10:07am Body Mass Index 26.9 kg/m2 11/17/2016 10:07am Pulse Oximetry Pulse Oximetry 11/17/2016 10:07am Results Laboratory Results Test Name Result Units [...] Normal <30 Microalbuminuria 30-299 Clinical Albuminuria > xx=070 The ADA recommends that at least two of three specimens collected within a 3-6 month period be abnormal before considering a patient to be within a diagnostic category. Ambulatory Laboratory Results Test Name Result Units Flags Reference Result Date/Time Comments Prothromb Time International Ratio 3.3 12/01/2016 12:30pm Prothrombin Time 48.6 seconds 11/30/2016 9:08am Bedside Urine Bilirubin (LAB) NEGATIVE(N=NEG) 08/04/2016 10:30am [...] NEGATIVE (N=NEG) 08/04/2016 10:30am Bedside Urine Specific [place] (LAB 1.010(N=1.000-1.025) 08/04/2016 10:30am Bedside Urine Urobilinogen (LAB) 0.2 mg/dL (N=<=1.0) 08/04/2016 10: 30am Procedures Procedure Status Date Provider(s) UA w/o micro (Office) Completed 07/31/15 UA w/o micro (Office) Completed 02/06/16 Latitude Completed 03/26/16 UA w/o micro (Office) Completed 08/04/16 Latitude Completed 10/19/16 Encounters Encounter Location Arrival/Admit Date Discharge/Depart Date Attending Provider [facility] 12/02/16 9:39am 12/02/16 12: 29pm Dewayne Ibarra MD Office Visit [facility] 11/17/16 10:00am Dewayne Ibarra MD Registered Practice [facility] 11/17/16 10:00am [facility] 9[facility] 10/28/16 11:59pm Toyin Harris DO Office Visit [facility] 10/19/16 1:10pm Eduard Nava M.D. Office Visit [facility] 09/10/16 2:15pm Dewayne Ibarra MD Office Visit Medical On[facility] 08/25/16 2:30pm Luis Felipe Brown MD Registered Provider [facility] 08/04/16 12:10pm Mohsen Haynes MD Office Visit [facility] 08/04/16 10:40am Mohsen Haynes MD
--- OUTSIDE RECORDS SUMMARY | 2018-12-08 01:26 | XMS REPORT ---
Author Author [facility] Medical Staff Organization [facility] Address [address] [place] [address] Phone [phone] Summary purpose CCDA Sent to HIE Chief [...] diagnostic tests and/or laboratory data RESULTS CBC [id number] Result Normal Range Units White Blood Count 3.12 3.0-11.2 K/uL Red Blood Cells L 3.01 3.99-5.76 x 106/uL Hemoglobin L 9.4 11.7-16.7 g/dl Hematocrit L 29.4 38.7-52.5 % Mean Alice Volume 97.7 86-100 FL Mean Alice Hemoglobin 31.2 27.5-33.5 pg Mean Alice Hemoglobin Conc 32.0 31.3-36.0 g/dl Red Cell Distribution Width 13.9 % Platelet Count L 89 140-375 K/uL Neutrophil % 69.9 41.1-91.7 % Lymphocyte % 17.9 7.6-58.5 % Monocyte % 10.3 0-13 % Eosinophil % 1.6 0-10 % Basophil % 0.3 0-7 % History of procedures No procedures recorded for [...]
--- OUTSIDE RECORDS SUMMARY | 2018-12-08 01:26 | XMS REPORT | Continuity of Care Document ---
Author Author [facility] Organization [facility] Address [address] [place] [address] Phone Unavailable Support Name Relationship Address Phone [place] [address] Insurance Providers Payer Name Policy Number Subscriber Name Relationship Medicare Hmo [id number] Weston Michelle A Self / Same As Patient Medicaid [employer] [id number] Weston Michelle Self / Same As Patient Advance Directives Directive Response Recorded Date/Time Do You Have A Living Will? Yes 04/07/14 1:19pm Do You Have a DPOA? Yes 04/07/14 1:19pm Chief Complaint and Reason for Visit Chief Complaint CHF Reason for Visit Congestive heart failure (CHF) Problems Medical Problems Problem Onset Date Status Breast (Female) Cancer 01/14/2012 Active Congestive heart failure (CHF) 04/08/2014 Active Medications Medication Dose Route Sig Days/Qty [...] Ascorbate Calcium 500 Mg PO 10/02/11 Active [place]-3 Fatty Acids (Fish Oil) 1 Cap PO DAILY 10/02/11 10/13/13 Discontinued Lutein 6 Mg PO DAILY 10/02/11 10/13/13 Discontinued Anastrozole (Arimidex) 1 Mg PO DAILY 30 Qty 12/21/11 07/18/12 Discontinued [warfarin] 5 Mg PO DAILY For 01/14/12 11/21/13 Discontinued [Bra] 1 Qty 02/04/12 10/13/13 Discontinued Anastrozole (Arimidex) 1 Mg PO DAILY 30 Qty 07/18/12 02/21/13 Discontinued Famotidine 20 Mg PO DAILY 09/02/12 Active Cholecalciferol 1,000 Unit PO DAILY 09/02/12 10/13/13 [...] 1 Mg PO DAILY 90 Qty 11/21/13 Active Carvedilol 6.25 Mg PO TWICE A DAY 180 Qty 03/20/14 Active Bumetanide 1 Mg PO DAILY 30 Qty 04/09/14 Active Warfarin Sodium (Coumadin) 5 Mg PO DIRECTED 60 Qty Take 1 tablet on Wednesday, Wednesday, Wednesday, Wednesday, and Wednesday and 04/09/14 Active Montelukast Sodium (Singulair 10 Mg) 10 Mg PO DAILY 30 Qty 04/09/14 Active Lisinopril 5 Mg PO TWICE A DAY 60 Qty 04/09/14 04/09/14 Discontinued Lisinopril 5 Mg PO TWICE A DAY 30 Qty 5 MG=1/2 TABLET at bedtime Active Social History Social History Problem Response Recorded Date/Time History of Street Drugs? No 04/07/2014 8:52pm Hx Alcohol Use No 04/07/2014 8:52pm Query Response Start Date Stop Date Smoking status: Never smoker Hospital Discharge Instructions Discharge Instructions Order Queries Discharge/Dismiss patient: Discharge instructions: Please weigh yourself daily and call if you have a 3 lb weight gain overnight Please have your bloodwork drawn in [place] in 1 week Return to office appointment: f/u Dr Her in [place] 06/19/14 at 1:30 PM Plan of Care Discharge Date 04/09/14 2:35pm Disposition HOME, ROUTINE DIS/ASST LIVING Prescriptions See Medications Section Follow-up Orders CBC W/Manual Diff CMP CT Chest W/WO BMP CBC W/Manual Diff CMP CT Chest W/WO Mammo Diag Unil-Rt CBC W/Manual Diff Lanoxin CBC W/Manual Diff CMP Lanoxin Lanoxin US Extrem Non Vas-Rt CBC W/Manual Diff CMP Bone Density Study Mammo Diag Unil-Rt CBC W/Manual Diff CMP BMP BMP BMP PT W/INR BMP Functional Status No functional status results. Allergies, Adverse Reactions, Alerts Allergen Type Severity Reaction Status Last Updated Ciprofloxacin HCl Adverse Reaction Intermediate Confusion Active 09/17/09 Ciprofloxacin Lactate Adverse Reaction Intermediate Confusion Active 09/17 Ciprofloxacin Adverse Reaction Intermediate Confusion Active 09/17/09 Immunizations No immunization records. Vital Signs Acute Vital Signs Vital Response Date/Time Height (Feet) 5 ft Height (Inches) 3.00 inches Weight (Pounds w/decimal) 152 lbs Temperature (Fahrenheit) 97.6 degrees F (97.6 - 99.5) Temperature (Celsius) 36.9 degrees C (36.4 - 37.5) Pulse Pulse Rate 70 bpm (60 - 100) Respiratory Rate 18 bpm (10 - 24) Oxygen Saturation O2 Sat by Pulse Oximetry 96 % (93 - 100) Blood Pressure 105/50 mm Hg Blood Pressure Mean 68 mm Hg Height 5 ft 2.99 in Weight 148 lb Body Mass Index 26.0 kg/m^2 Ambulatory Vital Signs Vital Response Date/Time Height 5 ft 3 in 11/21/2013 1:06pm Weight 152 lbs 11/21/2013 1:06pm Blood Pressure, Sitting 138/66 mm Hg 11/21/2013 1:06pm Pulse Rate 88 bpm 11/21/2013 1:06pm Respiration Rate 24 bpm 11/21/2013 1:06pm Body Surface Area 1.77 m2 11/21/2013 1:06pm Body Mass Index 26.9 kg/m2 11/21/2013 1:06pm Results Test Source Date Result Interp. Ref. Range Comments Ferritin April 09, 2014 8:30am 162 ng/mL N 20-288 AST/ALT Ratio April 09, 2014 4:54am 1.428 [...] 2009 3:34pm 0 % <=0 Test Performed at:[facility]/[address] [address] GILBERTO PARK MD Anion Gap April 09, [...] 0 % N 0-2 Bedside Glucose April 07, 2014 10:27pm 144 mg/dL H 65-99 POINT-OF- CARE TESTING PERFORMED BY PERSONNEL OF:[address] [place] [address] Bedside Stool Occult Blood November 20, 2008 6:28am Positive H () Bedside Troponin I April 07, 2014 2:17pm < 0.05 <0.10 [id number] TESTING PERFORMED BY PERSONNEL OF:[address] [place] [address] Blast Cells November 19, 2008 7:00am Not [...] 2014 4:54am 83 N >60 Units: mL/min/1.73m2) Fibrin Degradation Products, Quant November 12, 2008 [...] 12, 2008 3:04pm 358 mg/dL N 200-400 Globulin April 09, 2014 4:54am 2.4 g/dL [...] of total HgbNON-DIABETIC: <6.0% Test Performed at: [facility] [address] [place] [address] RUTH ANN HERBERT MD Immature Blood Cells [...] October 14, 2013 4:21am 52 mg/dL *SEE INTERP Lab Scanned Report April 04, 2014 1:04pm [facility] [id number] Lactate Dehydrogenase November 12, 2008 3:04pm 223 [...] 14, 2013 4:21am 65 mg/dl N *SEE INTERP Interpretation:Non-HDL Cholesterol Goal: <130 mg/dl if CHD [...] 4 % (calc) L 15-50 Test Performed at:[facility] [address] [place] [address] RUTH ANN HERBERT MD Percent Reticulocyte Count [...] Not Performed 0 Prothromb Time International Ratio April 09, 2014 4:54am 2.4 H 0.9-1.1 INR reference interval applies to patients not onanticoagulant therapy. The INR is a calculated value and is used to guide oral anticoagulation therapy. Recommeneded INR Range Moderate Intensity Warfarin Therapy 2.0 - 3.0 Higher Intensity Warfarin Therapy 2.5 - 3.5 Prothrombin Time April 09, 2014 4:54am 26.1 seconds H 9.0-11.5 Red Blood Cell Morphology [...] November 20, 2008 6:28am Acceptable ( ) [id number] TESTING PERFORMED BY PERSONNEL OF:[address] [place] [address] Thyroid Stimulating Hormone (TSH) February 01, 2010 [...] ng/dL L 76-181 THIS TEST WAS PERFORMED AT:[facility] [address] [place] [address] RAMÓN JEAN DO,MPH Transferrin November 12, 2008 3:04pm 194 mg/dL 188-341 Test Performed at :[place] [address] RUTH ANN HERBERT MD Triglycerides Level October [...] November 19, 2008 7:00am Not Performed 0 White Blood Cell Morphology November 19, 2008 7:00am Normal NORMAL White Blood Count April 09, 2014 4:54am 2.8 1000/cmm L 3.8-10.8 Procedures No known history of procedures. Encounters Encounter Location Date/Time Discharged Inpatient [facility] 04/07/14 6:12pm Office Visit [facility] 03/20/14 12:45pm Recent Diagnosis Congestive heart failure (CHF)
--- OUTSIDE RECORDS SUMMARY | 2018-12-08 01:26 | XMS REPORT ---
Author Author [facility] Medical Staff Organization [facility] Address [address] [place] [address] Phone [phone] Summary purpose CCDA Sent to HIE Chief [...] Relevant diagnostic tests and/or laboratory data RESULTS Coagulation Group [id number] Result Normal Range Units Protime H 36.3 9.8-12.5 Sec INR 3.35 INR INR THERAPEUTIC RANGES Primary and secondary prevention of venous thrombosis 2.0-3.0 Active venous thrombosis, pulmonary embolism and prevention of recurrent venous thrombosis: 2.0-4.0 Prevention of arterial thrombo-embolism, including patients with mechanical heart valves: 2.5-3.5 History of procedures No procedures recorded for [...]
[2018-12-08] MEDS ORDERED: RT-ALBUTEROL/IPRATROPIUM 3 ML (DUONEB) VIAL ONE (01:27)
--- OUTSIDE RECORDS SUMMARY | 2018-12-08 01:27 | XMS REPORT ---
Author Author [facility] Medical Staff Organization [facility] Address [address] [place] [address] Phone [phone] Summary purpose CCDA Sent to HIE Chief Complaint and Reason for Visit Admit Diagnosis 1 CHF NOS Problem list No authorized problems tracked for [...] tests and/or laboratory data RESULTS Chemistry Group [id number] Result Normal Range Units Urea Nitrogen (BUN) H 22 9.8-20.1 mg/dl Creatinine 1.03 0.57-1.11 mg/dl Bun/Creatiinine Ratio 21 Ratio Glucose 93 70-100 mg/dl Sodium 143 136-145 mmol/L Potassium 4.2 3.5-5.1 mEq/l Chloride 103 98-107 mEq/l CO2 31 23-31 mmol/L Anion GAP 9 g/dl Calcium 10.4 8.4-10.5 mg/dl Osmolality Calculation 299 280-300 mOsm/kg eGFR L 52 >=60 ml/min. History of procedures Procedure Code Code Type Description Date Performed Performing Physician [id number] CPT-4 METABOLIC PANEL TOTAL CA 07-19-2014 JUAN VÁZQUEZ [id number] CPT-4 ROUTINE VENIPUNCTURE 07-19-2014 JUAN VÁZQUEZ Functional status No functional or [...]
--- OUTSIDE RECORDS SUMMARY | 2018-12-08 01:27 | XMS REPORT ---
Author Author [facility] Medical Staff Organization [facility] Address [address] [place] [address] Phone [phone] Summary purpose CCDA Sent to HIE Chief [...] tests and/or laboratory data RESULTS Chemistry Group [id number] Result Normal Range Units Urea Nitrogen (BUN) H 22 9.8-20.1 mg/dl Creatinine 1.03 0.57-1.11 mg/dl Bun/Creatiinine Ratio 21 Ratio Glucose 93 70-100 mg/dl Sodium 143 136-145 mmol/L Potassium 4.2 3.5-5.1 mEq/l Chloride 103 98-107 mEq/l CO2 31 23-31 mmol/L Anion GAP 9 g/dl Calcium 10.4 8.4-10.5 mg/dl Osmolality Calculation 299 280-300 mOsm/kg eGFR L 52 >=60 ml/min. History of procedures No procedures [...]
[2018-12-08] MEDS: RT-ALBUTEROL/IPRATROPIUM 3 ML (DUONEB) VIAL INH ONE (01:32)
[2018-12-08 01:37] LABS: BASOPHILS % (AUTO) 0 % (0-10); EOSINOPHILS # (AUTO) 0.1 10^3/uL (0.0-0.3); EOSINOPHILS % (AUTO) 2 % (0-10); HEMATOCRIT 24 % (35-52); HEMOGLOBIN 7.2 G/DL (11.5-16.0); LYMPHOCYTES # (AUTO) 0.3 X 10^3 (1.0-4.0); LYMPHOCYTES % (AUTO) 9 % (12-44); MEAN CORPUSCULAR HEMOGLOBIN 31 PG (25-34); MEAN CORPUSCULAR HGB CONC 30 G/DL (32-36); MEAN CORPUSCULAR VOLUME 100 FL (80-99); MEAN PLATELET VOLUME 10.3 FL (7.4-10.4); MONOCYTES # (AUTO) 0.4 X 10^3 (0.0-1.0); MONOCYTES % (AUTO) 12 % (0-12); NEUTROPHILS # (AUTO) 2.4 X 10^3 (1.8-7.8); NEUTROPHILS % (AUTO) 77 % (42-75); PLATELET COUNT 98 10^3/uL (130-400); RED CELL DISTRIBUTION WIDTH 17.4 % (10.0-14.5); WHITE BLOOD COUNT 3.1 10^3/uL (4.3-11.0)
[2018-12-08] MEDS: fentaNYL INJECTION 100 MCG/2 ML AMP IVP ONE (01:41)
[2018-12-08 01:57] LABS: ALBUMIN 3.6 GM/DL (3.2-4.5); BILIRUBIN,TOTAL 0.7 MG/DL (0.1-1.0); CALCIUM 9.5 MG/DL (8.5-10.1); CREATININE SERUM 1.87 MG/DL (0.60-1.30); POTASSIUM 5.5 MMOL/L (3.6-5.0); TOTAL PROTEIN 6.5 GM/DL (6.4-8.2)
[2018-12-08 02:10] LABS: PROTHROMBIN TIME PATIENT 32.5 SEC (12.2-14.7)
[2018-12-08] MEDS: ONDANSETRON 4 MG/2 ML (SDV) Z0FRAN IVP ONE (02:25)
[2018-12-08] MEDS ORDERED: TRAM50TA2 PO (02:47)
[2018-12-08 03:00] VITALS: BP 120/52
--- NOTE | 2018-12-08 04:20 | Diagnostic Imaging Report ---
Indication: Injury from a fall Portable chest 1:58 AM There are postop changes from a median sternotomy. There is cardiomegaly. There are scattered alveolar infiltrates in both lungs. There is no effusion or pneumothorax. Impression: Scattered patchy alveolar infiltrates in both lungs suspicious for pneumonia. Dictated by: Dictated on workstation # [id number]
--- NOTE | 2018-12-08 04:55 | Diagnostic Imaging Report ---
Indication: Left shoulder pain 3 views of left shoulder show a fracture of the left humerus neck with a nondisplaced avulsion fracture of the greater tuberosity. The clavicle and scapula appear to be grossly intact. Impression: Nondisplaced comminuted fracture of the proximal left humerus Dictated by: Dictated on workstation # [id number]
--- NOTE | 2018-12-08 06:36 | Diagnostic Imaging Report ---
PROCEDURE: CT head, face, and cervical spine without contrast. TECHNIQUE: Multiple contiguous axial images were obtained through the head, neck, and facial bones without the use of intravenous contrast. Sagittal and coronal reformations through the cervical spine and facial bones were also performed. Auto Exposure Controls were utilized during the CT exam to meet ALARA standards for radiation dose reduction. INDICATION: Trauma. FINDINGS: There is prominence of the ventricles and sulci. There are focal areas of encephalomalacia in the frontal lobes bilaterally as well as a small area in the left parietal lobe. There is no hydrocephalus. There is no midline shift. There is no intracranial mass, hemorrhage or extra-axial fluid collection. Calvarium is intact. Sinuses and mastoid air cells are clear. The nasal bones are intact. The zygomatic arches are intact. The pterygoid plates are intact. The mandibular condyle is well aligned. The mandible itself is intact. There are no displaced facial fractures. The alignment of the cervical spine is normal. The vertebral body heights are well-maintained. There is some multilevel degenerative disc disease and posterior facet arthropathy. There is no fracture or traumatic subluxation. The odontoid is intact and the lateral masses are well aligned. The prevertebral soft tissues are within normal limits. IMPRESSION: No acute intracranial abnormality. There is atrophy as well as some areas of encephalomalacia likely from prior CVA. No displaced facial bone fractures. Cervical spondylosis and degenerative disc disease without acute fracture or traumatic subluxation. Dictated by: Dictated on workstation # [id number]
== END 2018-12-08 03:15 | disposition home or self-care (01) ==
LOC: ER 01:12
DX: S42.202A Unspecified fracture of upper end of left humerus, initial encounter for closed fracture (principal); S61.412A Laceration without foreign body of left hand, initial encounter; S00.33XA Contusion of nose, initial encounter; D61.818 Other pancytopenia; I48.91 Unspecified atrial fibrillation; R40.2142 Coma scale, eyes open, spontaneous, at arrival to emergency department; R40.2252 Coma scale, best verbal response, oriented, at arrival to emergency department; R40.2362 Coma scale, best motor response, obeys commands, at arrival to emergency department; Z88.2 Allergy status to sulfonamides; Z88.1 Allergy status to other antibiotic agents; Z88.8 Allergy status to other drugs, medicaments and biological substances; Z79.01 Long term (current) use of anticoagulants; W18.30XA Fall on same level, unspecified, initial encounter
CPT/HCPCS: 36415; 70450; 70486; 71045; 72125; 73030; 80053; 85025; 85610; 85730; 94640

== ENCOUNTER 2018-12-12 14:26 | Observation (INO) | payer MEDICARE, MEDICAID ==
[2018-12-12] VITALS (9 sets, daily range): BP systolic 119–140; BP diastolic 57–71
[~2018-12-12] VITALS: Ht 154.9 cm; Wt 65.8 kg
[~2018-12-12 14:26] MED LIST: BUME1TAB4 PO; CARV6.252 PO; IPRA3AMP31 NEB; ISOS30TA3 PO; LEVO175T5 PO; MONT10TA24 PO; PANT40TA3 PO; POTA10CA43 PO; SPIR25TA5 PO; SUCR1TAB PO; TRAM50TA2 PO; WARF-47; WARF-48
--- NOTE | 2018-12-12 14:41 | ED General ---
General Stated Complaint: FALL Source of Information: Patient, EMS, RN/MD (Mikaela Carrington, [facility] [employer]SULTANT) Exam Limitations: No Limitations History of Present Illness Date Seen by Provider: Dec 12, 2018 Time Seen by Provider: 14:21 Initial Comments Patient presents to ER by EMS from the custodial after her labs were obtained which revealed an INR of 5.3 and hemoglobin 6.8. Patient denies any chest pain is alert and oriented denies shortness of breath, black tarry stools or blood per rectum. She's had no vomiting but she has had occasional bloody noses for the past couple days. She wears oxygen at baseline 2 L and EMS reports her vital signs were normal with good oxygen sats on her baseline of oxygen. Patient recently had a fall and fractured her left proximal humeral head /neck. She has noticed more edema than left and was unable to get on her compression stockings using compression wraps. She is on warfarin for aortic valve replacement. Daughter reveals she does not have a history of coronary disease but she did have rheumatic heart fever. She had a catheterization years ago in [place] but nothing was found with her coronary arteries per her report. She has no history of stents or heart attacks. She does have a heart valve for which she is on warfarin. She had a colonoscopy in 2016 which found 1 polyp no other source of bleeding. She had an EGD to 3 weeks ago and [place] which found no source of bleed. She says multiple times that this has happened where her hemoglobin will be low and all the doctors would want to do scopes but not find anything and she would have to receive some blood. They always eventually blamed her chronic kidney disease. They were told by the core blower in [place], [place] that she keep her hemoglobin above 8.0. Allergies and Home Medications Allergies Coded Allergies: ciprofloxacin (Verified Allergy, Unknown, 12/08/18) diazepam (Verified Allergy, Unknown, 12/08/18) sulfamethoxazole (Verified Allergy, Unknown, 12/08/18) trimethoprim (Verified Allergy, Unknown, 12/08/18) Home Medications Tramadol HCl 50 Mg Tablet, 50 MG PO Q6H PRN for PAIN Prescribed by: RIAN ARROYO on 12/08/18 5275 Patient Home Medication List Home Medication List Reviewed: Yes Review of Systems Review of Systems Constitutional: No chills, No diaphoresis EENTM: No ear discharge, No hearing loss, No ear pain Respiratory: No cough, No dyspnea on exertion Cardiovascular: No chest pain, No palpitations Gastrointestinal: No abdominal pain, No constipation, No diarrhea Genitourinary: No discharge, No dysuria Musculoskeletal: No back pain, No joint pain Past Ozzjkwf-Wrdusk-Mbpdnv Hx Patient Social History Alcohol Use: Denies Use Recreational Drug Use: No Smoking Status: Never a Smoker 2nd Hand Smoke Exposure: No Recent Hopitalizations: No Immunizations Up To Date Tetanus Booster (TDap): Less than 5yrs Seasonal Allergies Seasonal Allergies: Yes Past Medical History Surgeries: Yes Breast, Valve Replacement Respiratory: Yes Asthma, COPD Cardiac: Yes Coronary Artery Disease, High Cholesterol, Hypertension Neurological: No LAST CLEANER History: Menopausal Genitourinary: Yes UTI-Chronic Gastrointestinal: Yes Gastroesophageal Reflux, Gastrointestinal Bleed Musculoskeletal: Yes Arthritis Endocrine: Yes Diabetes, Non-Insulin dep HEENT: No Cancer: Yes Breast Psychosocial: No Integumentary: No Blood Disorders: Yes Physical Exam Vital Signs Vital Signs - First Documented 12/12/18 14:37 Temp 97.5 Pulse 60 Resp 18 B/P (MAP) 108/65 (79) Pulse Ox 98 Capillary Refill : Height, Weight, BMI Height: 5'2.00" Weight: 169lbs. oz. 76.241432bv; BMI Method:Estimated General Appearance: No Apparent Distress, WD/WN Eyes: Bilateral Eye Normal Inspection, Bilateral Eye PERRL, Bilateral Eye EOMI HEENT: PERRL/EOMI, Normal ENT Inspection, Pharynx Normal, Moist Mucous Membranes Neck: Full Range of Motion, Normal Inspection Respiratory: No Accessory Muscle Use, No Respiratory Distress, Crackles (by basilar) Cardiovascular: Regular Rate, Rhythm, No Gallop, Normal Peripheral Pulses, Other (3+ pitting edema bilateral lower extremities) Gastrointestinal: Non Tender, Soft Rectal: Normal Exam, Normal Rectal Tone, Heme Positive Stool Extremity: Normal Capillary Refill, Normal Range of Motion, Non Tender, Other ( left upper extremity is in a sling) Neurologic/Psychiatric: Alert, Oriented x3, Normal Mood/Affect Progress/Results/Core Measures Suspected Sepsis SIRS Temperature: Pulse: Respiratory Rate: Laboratory Tests 12/12/18 14:30: White Blood Count 4.0L Blood Pressure / Mean: Laboratory Tests 12/12/18 14:30: Creatinine 2.15H, INR Comment 4.9H, Platelet Count 160, Total Bilirubin 1.1H Results/Orders Lab Results Laboratory Tests Test 12/12/18 14:30 12/12/18 15:15 Range/Units White Blood Count 4.0 L 4.3-11.0 10^3/uL Red Blood Count 2.32 L 4.35-5.85 10^6/uL Hemoglobin 6.9 *L 11.5-16.0 G/DL Hematocrit 23 L 35-52 % Mean Corpuscular Volume 99 80-99 FL Mean Corpuscular Hemoglobin 30 25-34 PG Mean Corpuscular Hemoglobin Concent 30 L 32-36 G/DL Red Cell Distribution Width 17.7 H 10.0-14.5 % Platelet Count 160 130-400 10^3/uL Mean Platelet Volume 12.0 H 7.4-10.4 FL Neutrophils (%) (Auto) 70 42-75 % Lymphocytes (%) (Auto) 8 L 12-44 % Monocytes (%) (Auto) 21 H 0-12 % Eosinophils (%) (Auto) 1 0-10 % Basophils (%) (Auto) 0 0-10 % Neutrophils # (Auto) 2.8 1.8-7.8 X 10^3 Lymphocytes # (Auto) 0.3 L 1.0-4.0 X 10^3 Monocytes # (Auto) 0.8 0.0-1.0 X 10^3 Eosinophils # (Auto) 0.0 0.0-0.3 10^3/uL Basophils # (Auto) 0.0 0.0-0.1 10^3/uL Neutrophils % (Manual) 78 % Lymphocytes % (Manual) 6 % Monocytes % (Manual) 15 % Eosinophils % (Manual) 1 % Nucleated Red Blood Cells 2 Polychromasia SLIGHT Hypochromasia MODERATE Poikilocytosis SLIGHT Basophilic Stippling SLIGHT Anisocytosis SLIGHT Microcytosis SLIGHT Macrocytosis SLIGHT Rouleau SLIGHT Prothrombin Time 47.7 *H 12.2-14.7 SEC INR Comment 4.9 H 0.8-1.4 Activated Partial Thromboplast Time 57 H 24-35 SEC Sodium Level 138 135-145 MMOL/L Potassium Level 4.8 3.6-5.0 MMOL/L Chloride Level 95 L 98-107 MMOL/L Carbon Dioxide Level 31 21-32 MMOL/L Anion Gap 12 5-14 MMOL/L Blood Urea Nitrogen 67 H 7-18 MG/DL Creatinine 2.15 H 0.60-1.30 MG/DL Estimat Glomerular Filtration Rate 22 BUN/Creatinine Ratio 31 Glucose Level 127 H 70-105 MG/DL Calcium Level 9.0 8.5-10.1 MG/DL Corrected Calcium 9.4 8.5-10.1 MG/DL Magnesium Level 2.7 H 1.8-2.4 MG/DL Total Bilirubin 1.1 H 0.1-1.0 MG/DL Aspartate Amino Transf (AST/SGOT) 35 H 5-34 U/L Alanine Aminotransferase (ALT/SGPT) 23 0-55 U/L Alkaline Phosphatase 104 40-136 U/L Troponin I < 0.028 <0.028 NG/ML C-Reactive Protein High Sensitivity 1.31 H 0.00-0.50 MG/DL B-Type Natriuretic Peptide 144.7 H <100.0 PG/ML Total Protein 6.6 6.4-8.2 GM/DL Albumin 3.5 3.2-4.5 GM/DL Urine Color YELLOW Urine Clarity CLEAR Urine pH 6 5-9 Urine Specific [place] 1.010 L 1.016-1.022 Urine Protein NEGATIVE NEGATIVE Urine Glucose (UA) NEGATIVE NEGATIVE Urine Ketones NEGATIVE NEGATIVE Urine Nitrite NEGATIVE NEGATIVE Urine Bilirubin NEGATIVE NEGATIVE Urine Urobilinogen NORMAL NORMAL MG/DL Urine Leukocyte Esterase 1+ H NEGATIVE Urine RBC (Auto) 1+ H NEGATIVE Urine RBC 0-2 /HPF Urine WBC 5-10 H /HPF Urine Squamous Epithelial Cells 2-5 /HPF Urine Crystals NONE /LPF Urine Bacteria MODERATE H /HPF Urine Casts PRESENT /LPF Urine Hyaline Casts 2-5 H /LPF Urine Mucus NEGATIVE /LPF Urine Culture Indicated YES My Orders Orders - RIAN ARROYO BNP (12/12/18 14:32) Cbc With Automated Diff (12/12/18 14:32) Comprehensive Metabolic Panel (12/12/18 14:32) Hs C Reactive Protein (12/12/18 14:32) Magnesium (12/12/18 14:32) Protime With Inr (12/12/18 14:32) Partial Thromboplastin Time (12/12/18 14:32) Troponin I (12/12/18 14:32) Type And Screen (12/12/18 14:32) Chest 1 View, Ap/Pa Only (12/12/18 14:32) Furosemide Injection (Lasix Injection) (12/12/18 14:45) Manual Differential (12/12/18 14:30) Occult Blood Stool (12/12/18 14:49) Catheter(Urinary) Insert & Ass 03,15 (12/12/18 15:11) Ua Culture If Indicated (12/12/18 16:05) Urine Culture (12/12/18 15:15) Medications Given in ED Current Medications Medications Dose Ordered Sig/Minal Route Start Time Stop Time Status Last Admin Dose Admin Furosemide 40 mg ONCE ONCE IVP 12/12/18 14:45 12/12/18 14:46 DC 12/12/18 15:14 40 MG Vital Signs/I&O 12/12/18 12/12/18 14:37 16:38 Temp 97.5 97.5 Pulse 60 84 Resp 18 18 B/P (MAP) 108/65 (79) 119/58 (78) Pulse Ox 98 99 Capillary Refill : Progress Note : Time: 14:44 Progress Note Repeat labs. BNP and chest x-ray. Plan to give 40 mg Lasix IV as the patient has respiratory crackles. Her oxygenation however is 90% on her baseline 2 L. Anticipate having to give her some blood on an observation stay however so we will diurese now. Goal hemoglobin is merited 8 per her core blower secondary to her heart valve. Plan to put a Guido catheter in her give her some Lasix and then her on observation stay for one or 2 units of blood. Fecal occult is positive. INR came back 4.9 for us. She's not having any active bleeding and her hemoglobin is stable at 6.9 so I don't think we should try and reverse this INR rather we should just withhold the warfarin intelligent comes back to normal range should be 2.5-3.5. Diagnostic Imaging Diagonstic Imaging: Xray Plain Films/CT/US/NM/MRI: chest (1v) Comments pulmonary edema [facility]. [place], [place] NAME: VIVIANAWESTON A MED REC#: [id number] PT STATUS: REG ER : 1935 PHYSICIAN: RIAN ARROYO MD ADMIT DATE: 12/12/18/ER Draft Date of Exam:12/12/18 CHEST 1 VIEW, AP/PA ONLY Indication: Fall. Comparison: 12/08/2018 Findings: Single frontal radiographic view of the chest was obtained and demonstrates persistent marked cardiomegaly. Pulmonary vasculature slightly prominent on today's study as well. Lungs also show mild diffuse prominence of interstitium. Alveolar opacities seen on prior study have since resolved. There does appear to be small left basilar effusion. No large effusion is seen on the right. No pneumothorax is identified on either side. Sternotomy wires and calcified aortic atherosclerosis are noted. Bony structures show no gross acute abnormalities. Impression: 1. Interval resolution of previously described alveolar infiltrates. 2. Persistent marked cardiomegaly with pulmonary vascular congestion and probable mild interstitial pulmonary edema. 3. Probable small left basilar effusion. Dictated on workstation # [id number] Dict: 12/12/18 1524 Trans: 12/12/18 1532 CV [id number] Interpreted by: JULIA PETERSON MD Electronically signed by: Reviewed: Reviewed by Me Departure Communication (Admissions) Time/Spoke to Admitting Phy: 15:35 Discussed case lab imaging findings with Dr. Lauren she agrees to accept the patient and do 2 units packed red blood cells Impression Primary Impression: Anemia in chronic kidney disease (CKD) Qualified Codes: N18.4 - Chronic kidney disease, stage 4 (severe); D63.1 - Anemia in chronic kidney disease Additional Impression: Supratherapeutic INR Disposition: ADMITTED INPATIENT Condition: Stable Admissions Decision to Admit Reason: Admit from ER (General) Decision to Admit/Date: Dec 12, 2018 Time/Decision to Admit Time: 15:30 Departure-Patient Inst. Referrals: ANTHONY CAZARES MD (PCP/Family) Primary Care Physician RIAN ARROYO Dec 12, 2018 14:41
[2018-12-12 14:45] LABS: BASOPHILS % (AUTO) 0 % (0-10); EOSINOPHILS % (AUTO) 1 % (0-10); HEMATOCRIT 23 % (35-52); LYMPHOCYTES # (AUTO) 0.3 X 10^3 (1.0-4.0); LYMPHOCYTES % (AUTO) 8 % (12-44); MEAN CORPUSCULAR HEMOGLOBIN 30 PG (25-34); MEAN CORPUSCULAR HGB CONC 30 G/DL (32-36); MEAN CORPUSCULAR VOLUME 99 FL (80-99); MONOCYTES # (AUTO) 0.8 X 10^3 (0.0-1.0); MONOCYTES % (AUTO) 21 % (0-12); NEUTROPHILS # (AUTO) 2.8 X 10^3 (1.8-7.8); NEUTROPHILS % (AUTO) 70 % (42-75); PLATELET COUNT 160 10^3/uL (130-400); RED CELL DISTRIBUTION WIDTH 17.7 % (10.0-14.5)
[2018-12-12] MEDS ORDERED: FUROSEMIDE 40 MG/4 ML INJ (LASIX) IVP ONE (14:45)
[2018-12-12 14:48] LABS: HEMOGLOBIN 6.9 G/DL (11.5-16.0)
[2018-12-12 15:01] LABS: INR 4.9 (0.8-1.4); PROTHROMBIN TIME PATIENT 47.7 SEC (12.2-14.7)
[2018-12-12 15:05] LABS: ALANINE AMINOTRANSFERASE 23 U/L (0-55); ALBUMIN 3.5 GM/DL (3.2-4.5); ALKALINE PHOSPHATASE 104 U/L (40-136); BILIRUBIN,TOTAL 1.1 MG/DL (0.1-1.0); BUN/CREATININE RATIO 31; CARBON DIOXIDE 31 MMOL/L (21-32); CHLORIDE 95 MMOL/L (98-107); CREATININE SERUM 2.15 MG/DL (0.60-1.30); GFR ESTIMATED 22; GLUCOSE 127 MG/DL (70-105); MAGNESIUM 2.7 MG/DL (1.8-2.4); POTASSIUM 4.8 MMOL/L (3.6-5.0); SODIUM 138 MMOL/L (135-145); TOTAL PROTEIN 6.6 GM/DL (6.4-8.2)
--- NOTE | 2018-12-12 15:32 | Diagnostic Imaging Report ---
Indication: Fall. Comparison: 12/08/2018 Findings: Single frontal radiographic view of the chest was obtained and demonstrates persistent marked cardiomegaly. Pulmonary vasculature slightly prominent on today's study as well. Lungs also show mild diffuse prominence of interstitium. Alveolar opacities seen on prior study have since resolved. There does appear to be small left basilar effusion. No large effusion is seen on the right. No pneumothorax is identified on either side. Sternotomy wires and calcified aortic atherosclerosis are noted. Bony structures show no gross acute abnormalities. Impression: 1. Interval resolution of previously described alveolar infiltrates. 2. Persistent marked cardiomegaly with pulmonary vascular congestion and probable mild interstitial pulmonary edema. 3. Probable small left basilar effusion. Dictated by: Dictated on workstation # [id number]
[2018-12-12 15:49] LABS: EOSINOPHILS % (MANUAL) 1 %; LYMPHOCYTES % (MANUAL) 6 %; MONOCYTES % (MANUAL) 15 %; NEUTROPHILS % (MANUAL) 78 %
[2018-12-12 15:50] LABS: ANISOCYTOSIS SLIGHT; HYPOCHROMASIA MODERATE; MICROCYTOSIS SLIGHT; NUCLEATED RED BLOOD CELLS 2; POIKILOCYTOSIS SLIGHT; POLYCHROMASIA SLIGHT; ROULEAUX SLIGHT
[2018-12-12 16:11] LABS: BILIRUBIN,URINE NEGATIVE (NEGATIVE); CLARITY,URINE CLEAR; COLOR,URINE YELLOW; GLUCOSE, URINE (UA) NEGATIVE (NEGATIVE); KETONES,URINE NEGATIVE (NEGATIVE); LEUKOCYTE ESTERASE ,URINE 1+ (NEGATIVE); NITRITE,URINE NEGATIVE (NEGATIVE); PH,URINE 6 (5-9); PROTEIN,URINE NEGATIVE (NEGATIVE); UROBILINOGEN,URINE NORMAL (NORMAL)
[2018-12-12 16:22] LABS: BACTERIA,URINE MODERATE /HPF; RBC,URINE 0-2 /HPF
--- NOTE | 2018-12-12 16:45 | NUR ---
WESTONRIK MICHELLE admitted to room 419-1, with an admitting diagnosis of ANEMIA, CHF, on 12/12/18 from ER via [facility], accompanied by STAFF. WESTON MICHELLE introduced to surroundings, call light, bed controls, phone, TV, temperature control, lights, meal times, smoking policy, visitor policy, side rail policy, bathrooms and showers. Patient Rights given to patient in the handbook.WESTON MICHELLE verbalizes understanding that [facility] is not responsible for the loss or damage to any personal effects or valuables that are kept in the patients posession during their hospitalization. The following Patient Care Plans were discussed with the PT AND DAUGHTER: Discharge Planning, PAIN CONTROL,IV THERAPY, and PRC'S INFUSION AND TREATING CHF. WESTON MICHELLE verbalizes understanding of Interdisciplinary Patient Education. Patient and/or family were informed about the Rapid Response Team and its purpose.
[2018-12-12] MEDS ORDERED: ONDANSETRON 4 MG/2 ML (SDV) Z0FRAN IV PRN (17:15)
[2018-12-12] MEDS ORDERED: NS IV 500 ML 500 ML IV SCH (17:30)
[2018-12-12] MEDS: ACETAMINOPHEN 500 MG TAB (TYLENOL) PO PRN (18:27)
[2018-12-12] MEDS: ISOSORBIDE MONONITRATE 30 MG (IMDUR) TAB PO SCH (18:27)
[2018-12-12] MEDS: KCL 10 MEQ TAB (MICRO K) PO SCH (18:27)
[2018-12-12] MEDS: RT-ALBUTEROL/IPRATROPIUM 3 ML (DUONEB) VIAL INH SCH ×2 (18:47→21:37)
[2018-12-12] MEDS: CARVEDILOL 6.25 MG (COREG) TAB PO SCH (21:27)
[2018-12-13] VITALS (8 sets, daily range): BP systolic 111–137; BP diastolic 53–69
[2018-12-13] MEDS: RT-ALBUTEROL/IPRATROPIUM 3 ML (DUONEB) VIAL INH SCH ×5 (02:24→19:49)
[2018-12-13] MEDS: LEVOTHYROXINE 75 MCG (LEVOTHROID) TABLET PO SCH (06:21)
[2018-12-13] MEDS: ISOSORBIDE MONONITRATE 30 MG (IMDUR) TAB PO SCH ×2 (06:21→16:28)
[2018-12-13] MEDS: LEVOTHYROXINE 100 MCG (LEVOTHROID) TAB PO SCH (06:21)
[2018-12-13] MEDS: KCL 10 MEQ TAB (MICRO K) PO SCH ×2 (06:21→16:28)
[2018-12-13] MEDS ORDERED: NITR0.4T42 SL (08:40)
[2018-12-13] MEDS ORDERED: ACET325T38 PO (08:40)
[2018-12-13] MEDS ORDERED: HYDR-3812 PO (08:40)
[2018-12-13] MEDS ORDERED: POLY17PO6 PO (08:40)
[2018-12-13] MEDS ORDERED: TRAM50TA2 PO (08:40)
[2018-12-13] MEDS ORDERED: MULT-166 PO (08:40)
[2018-12-13] MEDS ORDERED: IBUP-30 PO (08:40)
[2018-12-13] MEDS ORDERED: ACET-2267 PO (08:40)
[2018-12-13] MEDS ORDERED: CARB15DR OU (08:40)
[2018-12-13] MEDS ORDERED: MULT-985 PO (08:40)
[2018-12-13] MEDS ORDERED: LACT1CAP62 PO (08:40)
[2018-12-13] MEDS ORDERED: FOLI1TAB24 PO (08:40)
[2018-12-13] MEDS ORDERED: DOCU-143 PO (08:40)
[2018-12-13] MEDS ORDERED: CNC1KV IM (08:40)
[2018-12-13] MEDS ORDERED: ZINC220C7 PO (08:40)
[2018-12-13] MEDS ORDERED: ASCO-262 PO (08:40)
--- NOTE | 2018-12-13 08:57 | NUR ---
UPDATED MED REC WITH PHYSICIAN VISIT FROM FROM [facility]
[2018-12-13] MEDS: SPIRONOLACTONE 25 MG (ALDACTONE) TAB PO SCH (09:34)
[2018-12-13] MEDS: PANTOPRAZOLE 40 MG (PROTONIX) TAB PO SCH (09:34)
[2018-12-13] MEDS: BUMETANIDE 1 MG (BUMEX) TAB PO SCH (09:34)
[2018-12-13] MEDS: ACETAMINOPHEN 500 MG TAB (TYLENOL) PO PRN (09:35)
[2018-12-13] MEDS: CARVEDILOL 6.25 MG (COREG) TAB PO SCH ×2 (09:35→20:06)
--- NOTE | 2018-12-13 12:44 | History & Physicial (CHS) ---
HPI History of Present Illness: 83 yo female sent to ER due to acute on chronic anemia with supratherapeutic INR and edema. She actually had an EGD done less than a month ago at another facility which her daughter reports was negative and had colonoscopy in 2016 which had one polyp. Her vital signs have been stable, but her stool occult blood testing is positive. She has had CKD for several years. She also had a recent humerus fracture and she is not sure what needs to be done in follow-up, she does have her left arm in a sling. She states she is feeling fairly well today. Date seen by provider: Dec 13, 2018 Time Seen by Provider: 10:10 Attending Physician Melissa Lauren MD PCP Ed Kitchen MD Consult Date of Admission Dec 12, 2018 at 15:33 Home Medications Home Medications Reviewed patient Home Medication Reconciliation performed by pharmacy medication reconciliations headend technician and/or nursing. Patients Allergies have been reviewed. Allergies Coded Allergies: ciprofloxacin (Verified Allergy, Unknown, 12/08/18) diazepam (Verified Allergy, Unknown, 12/08/18) sulfamethoxazole (Verified Allergy, Unknown, 12/08/18) trimethoprim (Verified Allergy, Unknown, 12/08/18) NCO-[facility]-Snojkq Hx Patient Social History Alcohol Use: Denies Use Recreational Drug Use: No Smoking Status: Never a Smoker 2nd Hand Smoke Exposure: No Recent Foreign Travel: No Contact w/other who traveled: No Recent Hopitalizations: No Recent Infectious Disease Expo: No Physical Abuse Screen: No Sexual Abuse: No Immunizations Up To Date Tetanus Booster (TDap): Less than 5yrs Date of Pneumonia Vaccine: May 18, 2016 Past Medical History PMHx: CKD Breast cancer Heart failure CAD Mitral valve and tricuspid valve replacement Sick sinus syndrome Thrombus of left atrial appendage SurgHx: Mitral and tricuspid valve replacement Mastectomy Hiatal hernia Tonsillectomy Pacemaker Duodenal/stomach surgery of unknown etiology Family Medical History Family History: Cardiovascular disease 19 MOTHER Neoplasm 19 FATHER (LIVER CA) Review of Systems (CHC) Constitutional: other (difficult to obtain detail from patient) Reviewed Test Results Reviewed Test Results Lab Laboratory Tests Test 12/12/18 14:30 12/12/18 15:15 Range/Units White Blood Count 4.0 L 4.3-11.0 10^3/uL Red Blood Count 2.32 L 4.35-5.85 10^6/uL Hemoglobin 6.9 *L 11.5-16.0 G/DL Hematocrit 23 L 35-52 % Mean Corpuscular Volume 99 80-99 FL Mean Corpuscular Hemoglobin 30 25-34 PG Mean Corpuscular Hemoglobin Concent 30 L 32-36 G/DL Red Cell Distribution Width 17.7 H 10.0-14.5 % Platelet Count 160 130-400 10^3/uL Mean Platelet Volume 12.0 H 7.4-10.4 FL Neutrophils (%) (Auto) 70 42-75 % Lymphocytes (%) (Auto) 8 L 12-44 % Monocytes (%) (Auto) 21 H 0-12 % Eosinophils (%) (Auto) 1 0-10 % Basophils (%) (Auto) 0 0-10 % Neutrophils # (Auto) 2.8 1.8-7.8 X 10^3 Lymphocytes # (Auto) 0.3 L 1.0-4.0 X 10^3 Monocytes # (Auto) 0.8 0.0-1.0 X 10^3 Eosinophils # (Auto) 0.0 0.0-0.3 10^3/uL Basophils # (Auto) 0.0 0.0-0.1 10^3/uL Neutrophils % (Manual) 78 % Lymphocytes % (Manual) 6 % Monocytes % (Manual) 15 % Eosinophils % (Manual) 1 % Nucleated Red Blood Cells 2 Polychromasia SLIGHT Hypochromasia MODERATE Poikilocytosis SLIGHT Basophilic Stippling SLIGHT Anisocytosis SLIGHT Microcytosis SLIGHT Macrocytosis SLIGHT Rouleau SLIGHT Prothrombin Time 47.7 *H 12.2-14.7 SEC INR Comment 4.9 H 0.8-1.4 Activated Partial Thromboplast Time 57 H 24-35 SEC Sodium Level 138 135-145 MMOL/L Potassium Level 4.8 3.6-5.0 MMOL/L Chloride Level 95 L 98-107 MMOL/L Carbon Dioxide Level 31 21-32 MMOL/L Anion Gap 12 5-14 MMOL/L Blood Urea Nitrogen 67 H 7-18 MG/DL Creatinine 2.15 H 0.60-1.30 MG/DL Estimat Glomerular Filtration Rate 22 BUN/Creatinine Ratio 31 Glucose Level 127 H 70-105 MG/DL Calcium Level 9.0 8.5-10.1 MG/DL Corrected Calcium 9.4 8.5-10.1 MG/DL Magnesium Level 2.7 H 1.8-2.4 MG/DL Total Bilirubin 1.1 H 0.1-1.0 MG/DL Aspartate Amino Transf (AST/SGOT) 35 H 5-34 U/L Alanine Aminotransferase (ALT/SGPT) 23 0-55 U/L Alkaline Phosphatase 104 40-136 U/L Troponin I < 0.028 <0.028 NG/ML C-Reactive Protein High Sensitivity 1.31 H 0.00-0.50 MG/DL B-Type Natriuretic Peptide 144.7 H <100.0 PG/ML Total Protein 6.6 6.4-8.2 GM/DL Albumin 3.5 3.2-4.5 GM/DL Urine Color YELLOW Urine Clarity CLEAR Urine pH 6 5-9 Urine Specific [place] 1.010 L 1.016-1.022 Urine Protein NEGATIVE NEGATIVE Urine Glucose (UA) NEGATIVE NEGATIVE Urine Ketones NEGATIVE NEGATIVE Urine Nitrite NEGATIVE NEGATIVE Urine Bilirubin NEGATIVE NEGATIVE Urine Urobilinogen NORMAL NORMAL MG/DL Urine Leukocyte Esterase 1+ H NEGATIVE Urine RBC (Auto) 1+ H NEGATIVE Urine RBC 0-2 /HPF Urine WBC 5-10 H /HPF Urine Squamous Epithelial Cells 2-5 /HPF Urine Crystals NONE /LPF Urine Bacteria MODERATE H /HPF Urine Casts PRESENT /LPF Urine Hyaline Casts 2-5 H /LPF Urine Mucus NEGATIVE /LPF Urine Culture Indicated YES Physical Exam-(CHC) Physical Exam Vital Signs VS - Last 72 Hours, by Label 12/12/18 12/12/18 12/12/18 12/12/18 14:37 16:38 16:45 17:26 Temp 97.5 97.5 96.4 Pulse 60 84 60 84 Resp 18 18 16 B/P (MAP) 108/65 (79) 119/58 (78) 129/57 (81) Pulse Ox 98 99 96 99 O2 Delivery Nasal Cannula O2 Flow Rate 2.00 FiO2 28 12/12/18 12/12/18 12/12/18 12/12/18 17:53 18:45 18:47 19:00 Temp 97.5 97.8 98.0 Pulse 84 60 60 Resp 16 24 16 B/P (MAP) 119/58 140/70 135/70 Pulse Ox 99 96 97 100 O2 Delivery Nasal Cannula Nasal Cannula Nasal Cannula Nasal Cannula O2 Flow Rate 2.00 2.00 2.00 2.00 2.00 12/12/18 12/12/18 12/12/18 12/12/18 20:05 20:08 21:00 21:30 Temp 98.6 98.6 97.8 Pulse 61 61 60 Resp 16 16 16 B/P (MAP) 131/71 (91) 131/71 139/63 Pulse Ox 100 100 100 100 O2 Delivery Nasal Cannula Nasal Cannula Nasal Cannula Nasal Cannula O2 Flow Rate 2.00 2.00 2.00 2.00 12/12/18 12/12/18 12/13/18 12/13/18 21:37 23:53 02:24 04:55 Temp 98.6 98.2 Pulse 60 61 Resp 16 16 B/P (MAP) 123/59 (80) 111/53 (72) Pulse Ox 92 100 94 99 O2 Delivery Nasal Cannula Nasal Cannula Nasal Cannula Nasal Cannula O2 Flow Rate 2.00 2.00 2.00 2.00 12/13/18 12/13/18 12/13/18 12/13/18 07:05 08:00 09:30 11:49 Temp 97.1 Pulse 60 Resp 16 B/P (MAP) 119/59 (79) Pulse Ox 94 96 100 97 O2 Delivery Nasal Cannula Nasal Cannula Nasal Cannula Nasal Cannula O2 Flow Rate 2.00 2.00 2.00 2.00 12/13/18 12/13/18 12/13/18 12/13/18 12:00 13:10 13:25 13:25 Temp 97.0 97.0 98.3 95.3 Pulse 60 60 60 Resp 16 17 17 16 B/P (MAP) 129/61 (83) 137/60 122/60 122/60 Pulse Ox 99 98 100 100 O2 Delivery Nasal Cannula Room Air Room Air Room Air O2 Flow Rate 2.00 12/13/18 12/13/18 12/13/18 15:34 15:57 16:00 Temp 98.4 98.9 Pulse 60 60 Resp 16 20 B/P (MAP) 135/59 119/69 (86) Pulse Ox 96 98 98 O2 Delivery Nasal Cannula Nasal Cannula Nasal Cannula O2 Flow Rate 2.00 2.00 2.00 Capillary Refill : Less Than 3 SecondsLess Than 3 Seconds General Appearance: WD/WN, no apparent distress Respiratory: lungs clear, normal breath sounds Cardiovascular: regular rate, rhythm, no murmur Gastrointestinal: normal bowel sounds, non tender, soft Extremities: pedal edema (3+) Neurologic/Psychiatric: alert, normal mood/affect Skin: warm/dry, ecchymosis Assessment/Plan Assessment/Plan Admission Status: Observation (1) Supratherapeutic INR Status: Acute Assessment & Plan: Hold coumadin, no indication for reversal with no evidence of acute bleed (2) Anemia in chronic kidney disease (CKD) Status: Acute Assessment & Plan: Suspect her anemia is due to CKD more than acute bleed given recent negative workup, asymptomatic and normal BP. s/p 1 unit last night , waiting on second unit this am for compatibility issues. Repeat labs after. Qualifiers: Qualified Codes: N18.4 - Chronic kidney disease, stage 4 (severe); D63.1 - Anemia in chronic kidney disease (3) Chronic kidney disease Status: Chronic Assessment & Plan: Stage 4 by family report, stable since admit. Continue home diuretics. (4) Bacteria in urine Status: Acute Assessment & Plan: E coli on initial, asymptomatic, will wait for culture. (5) CHF (congestive heart failure) Status: Chronic Assessment & Plan: Unknown details given recently moved to [facility], BNP only mildly elevated on admit, no clear evidence of acute exacerbation. Continue home meds. (6) Left humeral fracture Status: Acute Assessment & Plan: Left arm in sling, plan was for follow up in one week (from 12/08) with Ortho, family is unclear of plan. If d/c before then, will work on scheduling appt. No evidence of hematoma at fx site. Qualifiers: (7) Diabetes Status: Chronic Assessment & Plan: Problem is listed in her clinic chart, but she is not on meds, will need further clarification. Qualifiers: (8) Mitral valve replaced Status: Chronic Assessment & Plan: On coumadin, held currently due to high INR. (9) Tricuspid valve replaced Status: Chronic (10) DVT prophylaxis Status: Acute Assessment & Plan: On coumadin, INR currently supratherapeutic. Clinical Quality Measures DVT/VTE Risk/Contraindication: Risk Factor Score Per Nursin RFS Level Per Nursing on Admit: 4+=Very High MELISSA LAUREN MD Dec 13, 2018 12:44
[2018-12-13] MEDS ORDERED: NS IV 500 ML 500 ML ONE (12:50)
[2018-12-13] MEDS ORDERED: DOCUSATE SODIUM 100 MG (COLACE) CAP PO PRN (13:00)
[2018-12-13] MEDS ORDERED: NON-FORMULARY MEDICATION 1 EA EA (Hydrocodone/Acetaminophen (Hydrocodone-Acetamin 5-325 mg PO PRN (13:00)
[2018-12-13] MEDS ORDERED: HYDROcodone/APAP 5 MG/325 MG (LORTAB) TAB PO PRN (13:15)
[2018-12-13] MEDS: SUCRALFATE 1 GM (CARAFATE) TAB PO SCH ×2 (16:28→20:06)
[2018-12-13 16:54] LABS: BASOPHILS % (AUTO) 0 % (0-10); EOSINOPHILS # (AUTO) 0.1 10^3/uL (0.0-0.3); EOSINOPHILS % (AUTO) 1 % (0-10); HEMATOCRIT 27 % (35-52); HEMOGLOBIN 8.1 G/DL (11.5-16.0); LYMPHOCYTES # (AUTO) 0.4 X 10^3 (1.0-4.0); LYMPHOCYTES % (AUTO) 9 % (12-44); MEAN CORPUSCULAR HEMOGLOBIN 29 PG (25-34); MEAN CORPUSCULAR HGB CONC 30 G/DL (32-36); MEAN CORPUSCULAR VOLUME 96 FL (80-99); MEAN PLATELET VOLUME 10.4 FL (7.4-10.4); MONOCYTES # (AUTO) 0.4 X 10^3 (0.0-1.0); MONOCYTES % (AUTO) 11 % (0-12); NEUTROPHILS # (AUTO) 3.1 X 10^3 (1.8-7.8); NEUTROPHILS % (AUTO) 78 % (42-75); PLATELET COUNT 91 10^3/uL (130-400); RED CELL DISTRIBUTION WIDTH 17.9 % (10.0-14.5); WHITE BLOOD COUNT 3.9 10^3/uL (4.3-11.0)
[2018-12-13 17:17] LABS: ALBUMIN 3.4 GM/DL (3.2-4.5); BILIRUBIN,TOTAL 1.8 MG/DL (0.1-1.0); CALCIUM 8.9 MG/DL (8.5-10.1); CREATININE SERUM 1.75 MG/DL (0.60-1.30); POTASSIUM 4.8 MMOL/L (3.6-5.0); TOTAL PROTEIN 6.3 GM/DL (6.4-8.2)
[2018-12-13] MEDS ORDERED: POLYETHYLENE GLYCOL 17 GM (MIRALAX) PACK PO SCH (21:00)
[2018-12-14 01:04] VITALS: BP 115/53
[2018-12-14 05:49] VITALS: BP 127/55
[2018-12-14] MEDS: ISOSORBIDE MONONITRATE 30 MG (IMDUR) TAB PO SCH (06:06)
[2018-12-14] MEDS: LEVOTHYROXINE 75 MCG (LEVOTHROID) TABLET PO SCH (06:07)
[2018-12-14] MEDS: KCL 10 MEQ TAB (MICRO K) PO SCH (06:07)
[2018-12-14] MEDS: SUCRALFATE 1 GM (CARAFATE) TAB PO SCH ×2 (06:07→10:08)
[2018-12-14] MEDS: LEVOTHYROXINE 100 MCG (LEVOTHROID) TAB PO SCH (06:07)
[2018-12-14 06:16] LABS: HEMOGLOBIN 7.7 G/DL (11.5-16.0); MEAN PLATELET VOLUME 9.7 FL (7.4-10.4); RED CELL DISTRIBUTION WIDTH 17.5 % (10.0-14.5); WHITE BLOOD COUNT 3.3 10^3/uL (4.3-11.0)
[2018-12-14 06:28] LABS: INR 3.9 (0.8-1.4); PROTHROMBIN TIME PATIENT 40.2 SEC (12.2-14.7)
[2018-12-14] MEDS: RT-ALBUTEROL/IPRATROPIUM 3 ML (DUONEB) VIAL INH SCH ×3 (06:31→15:11)
[2018-12-14 06:36] LABS: ALBUMIN 3.2 GM/DL (3.2-4.5); BILIRUBIN,TOTAL 1.5 MG/DL (0.1-1.0); CALCIUM 8.8 MG/DL (8.5-10.1); CREATININE SERUM 1.58 MG/DL (0.60-1.30); TOTAL PROTEIN 5.7 GM/DL (6.4-8.2)
[2018-12-14 08:00] VITALS: BP 122/64
[2018-12-14] MEDS ORDERED: NON-FORMULARY MEDICATION 1 EA EA (Polyethylene Glycol 3350 (Miralax) 17 GM) PO SCH (09:00)
[2018-12-14] MEDS ORDERED: MONTELUKAST 10 MG (SINGULAIR) TAB PO SCH (09:00)
[2018-12-14] MEDS: SPIRONOLACTONE 25 MG (ALDACTONE) TAB PO SCH (10:08)
[2018-12-14] MEDS: CARVEDILOL 6.25 MG (COREG) TAB PO SCH (10:08)
[2018-12-14] MEDS: PANTOPRAZOLE 40 MG (PROTONIX) TAB PO SCH (10:08)
[2018-12-14] MEDS: BUMETANIDE 1 MG (BUMEX) TAB PO SCH (10:09)
[2018-12-14 12:00] VITALS: BP 125/67
--- NOTE | 2018-12-14 13:48 | Diagnostic Imaging Report ---
INDICATION: Fall. COMPARISON: None. FINDINGS: Two radiographic views of the left hip were obtained. There is no fracture, dislocation, bone destruction, or radiopaque foreign body. The visualized pelvic osseous structures demonstrate no acute abnormalities. There is no bone destruction or radiopaque foreign body. The surrounding soft tissue structures are unremarkable. IMPRESSION: 1. No acute fracture or dislocation in the left hip. Dictated by: Dictated on workstation # [id number]
[2018-12-14] MEDS ORDERED: CEPHALEXIN 250 MG (KEFLEX) CAP PO SCH (14:03)
[2018-12-14] MEDS ORDERED: CEPH250C PO (14:11)
[2018-12-14] MEDS ORDERED: WARF3TAB56 PO (14:11)
--- NOTE | 2018-12-14 14:15 | Discharge Inst-Skilled Nursing ---
Discharge Inst-Skilled NF Patient Instructions Patient Problems: Anemia of chronic kidney disease Left humerus fracture Chronic kidney disease Supratherapeutic INR On chronic anticoagulation for mechanical heart valves Consult/Follow Up/Orders Skilled NF Admit to: [facility] Certifications SNF I certify that SNF services are required to be given on an inpatient basis because of the above named patient's need for nursing home care on a continuing basis for the conditions(s) for which he/she was receiving inpatient hospital services prior to his/her transfer to the SNF. Senior Living Facility Order: Nursing Services, Remote Advisor-Evaluate & Treat, Physical Therapy-Evaluate & Treat Oxygen Delivery Method: Nasal Cannula Discharge Diet: Cardiac Diet Daily Activity as Tolerated: No (left humerus fracture, left arm to be in sling ) New & Resume Previous Orders New & Resume Previous Orders Resume previous nursing home orders. Do not start warfarin until 12/15. Recheck INR and CBC on 12/16. Needs an appointment made with Dr. Hutchinson/Orthopedic Surgery for her left humerus fracture follow up sumit. Discharge Medications New, Converted or Re-Newed RX: Other (Need called to pharmacy- no pharmacy was listed in chart.) New Medications: Warfarin Sodium (Warfarin Sodium) 3 Mg Tablet 3 MG PO DAILY, #30 TAB 0 Refills Start on 12/15/2018 Cephalexin (Cephalexin) 250 Mg Capsule 500 MG PO BID for 7 Days, #14 CAP 0 Refills Continued Medications: Acetaminophen (Tylenol) 325 Mg Tablet 325 MG PO Q4H PRN for PAIN-MILD, TAB Acetaminophen (Tylenol Extra Strength) 500 Mg Tablet 1000 MG PO Q8H PRN for PAIN-MILD, TAB Ascorbate Calcium (Vitamin C) 500 Mg Tablet 500 MG PO DAILY, TAB Bumetanide (Bumetanide) 1 Mg Tablet 1 MG PO DAILY, TAB Carboxymethylcellulose Sodium (Refresh Tears) 15 Ml Drops 1 DROP OU TID, DROPS Carvedilol (Carvedilol) 6.25 Mg Tablet 6.25 MG PO BID, TAB Cyanocobalamin (Cyanocobalamin Injection) 1,000 Mcg/Ml Inj 1000 MCG IM MONTHLY, VIAL Docusate Sodium (Colace) 100 Mg Capsule 200 MG PO TID PRN for CONSTIPATION-1ST LINE, CAP Folic Acid (Folic Acid) 1 Mg Tablet 1 MG PO DAILY, TAB Hydrocodone/Acetaminophen (Hydrocodone-Acetamin 5-325 mg) 1 Each Tablet 1 TAB PO Q6H PRN for PAIN-MODERATE, TAB Ipratropium/Albuterol Sulfate (Iprat-Albut 0.5-3(2.5) mg/3 ml) 3 Ml Ampul.neb 3 ML NEB QID, EA Isosorbide Mononitrate (Isosorbide Mononitrate ER) 30 Mg Tab.er.24h 30 MG PO BID, TAB Lactobacillus Acidophilus (Probiotic) 1 Each Capsule 1 CAP PO DAILY, CAP Levothyroxine Sodium (Levothyroxine Sodium) 175 Mcg Tablet 175 MCG PO DAILY, TAB Montelukast Sodium (Montelukast Sodium) 10 Mg Tablet 10 MG PO DAILY, TAB Multivitamin with Minerals (Multivitamins with Minerals) 1 Each Tablet 1 TAB PO DAILY, TAB Multivitamin with Minerals (Hair, Skin & Nails) 1 Each Tablet 1 TAB PO TID, TAB Nitroglycerin (Nitroglycerin) 0.4 Mg Tab.subl 0.4 MG SL UD PRN for CHEST PAIN, TAB Pantoprazole Sodium (Pantoprazole Sodium) 40 Mg Tablet.dr 40 MG PO BID, TAB Polyethylene Glycol 3350 (Miralax) 17 Gm Powd.pack 17 GM PO DAILY, EACH Potassium Chloride (Potassium Chloride) 10 Meq Capsule.er 10 MEQ PO BID, CAP Spironolactone (Spironolactone) 25 Mg Tablet 25 MG PO DAILY, TAB Sucralfate (Sucralfate) 1 Gm Tablet 1 GM PO ACHS, TAB Tramadol HCl (Tramadol HCl) 50 Mg Tablet 50 MG PO Q6H PRN for PAIN-BREAKTHROUGH, TAB Zinc Sulfate (Zinc-220) 220 Mg Capsule 220 MG PO DAILY, CAP Discontinued Medications: Ibuprofen (Advil) 200 Mg Tablet 800 MG PO Q8H PRN for PAIN-MILD, TAB Melissa Lauren December 14, 2018 14:12 MELISSA LAUREN MD December 14, 2018 14:15
--- NOTE | 2018-12-14 14:17 | Discharge Summary ---
Diagnosis/Chief Complaint Date of Admission Dec 12, 2018 at 15:33 Date of Discharge December 14, 2018 Admission Diagnosis Admission Diagnosis Acute on chronic anemia of chronic disease Supratherapeutic INR Discharge Diagnosis See problem list. Problems/Diagnosis: (1) Supratherapeutic INR Assessment & Plan: Hold coumadin, no indication for reversal with no evidence of acute bleed Status: Acute (2) Anemia in chronic kidney disease (CKD) Assessment & Plan: Suspect her anemia is due to CKD more than acute bleed given recent negative workup, asymptomatic and normal BP. s/p 1 unit last night , waiting on second unit this am for compatibility issues. Repeat labs after showed stable hemoglobin around 8. Qualifiers: Qualified Codes: N18.4 - Chronic kidney disease, stage 4 (severe); D63.1 - Anemia in chronic kidney disease Status: Acute (3) Chronic kidney disease Assessment & Plan: Stage 4 by family report, stable since admit. Continue home diuretics. Status: Chronic (4) Bacteria in urine Assessment & Plan: E coli on initial, asymptomatic, resistant only to ampicillin, discharged on cephalexin. Status: Acute (5) CHF (congestive heart failure) Assessment & Plan: Unknown details given recently moved to [facility], BNP only mildly elevated on admit, no clear evidence of acute exacerbation. Continue home meds. Status: Chronic (6) Left humeral fracture Assessment & Plan: Left arm in sling, plan was for follow up in one week (from 12/08) with Ortho, family is unclear of plan. Qualifiers: Status: Acute (7) Diabetes Assessment & Plan: Problem is listed in her clinic chart, but she is not on meds, will need further clarification. Qualifiers: Status: Chronic (8) Mitral valve replaced Assessment & Plan: On coumadin, held currently due to high INR. Plan to resume day after d/c. INR 3.9 on day of d/c. Status: Chronic (9) Tricuspid valve replaced Status: Chronic Chief Complaint/HPI Chief Complaint/HPI 83 yo female sent to ER due to acute on chronic anemia with supratherapeutic INR and edema. She actually had an EGD done less than a month ago at another facility which her daughter reports was negative and had colonoscopy in 2016 which had one polyp. Her vital signs have been stable, but her stool occult blood testing is positive. She has had CKD for several years. She also had a recent humerus fracture and she is not sure what needs to be done in follow-up, she does have her left arm in a sling. She states she is feeling fairly well today. Discharge Summary-Simple/Stand Consultations Discharge Physical Examination Allergies: Coded Allergies: ciprofloxacin (Verified Allergy, Unknown, 12/08/18) diazepam (Verified Allergy, Unknown, 12/08/18) sulfamethoxazole (Verified Allergy, Unknown, 12/08/18) trimethoprim (Verified Allergy, Unknown, 12/08/18) Vitals & I&Os Vital Sign - Last 12Hours Date Time Temp Pulse Resp B/P (MAP) Pulse Ox O2 Delivery O2 Flow Rate FiO2 12/14/18 12:00 98.5 60 16 125/67 (86) 100 Nasal Cannula 2.00 12/12/18 17:26 28 Intake and Output 12/14/18 00:00 Intake Total 1170 ml Output Total 1600 ml Balance -430 ml General Appearance: Alert, No Acute Distress Respiratory: Clear to Auscultation, Normal Air Movement Cardiovascular: Regular Rate, No Murmurs Neuro: Normal Speech Psych/Mental Status: Mood NL Hospital Course See final discharge diagnosis. Discharge Instructions to patient/family Please see electronic discharge instructions given to patient. Discharge Medications Reviewed and agree with Discharge Medication list on patient's Discharge Instruction sheet Clinical Quality Measures DVT/VTE Risk/Contraindication: Risk Factor Score Per Nursin RFS Level Per Nursing on Admit: 4+=Very High Copy Copies To 1: VELASQUEZ Fox BETHANY N MD December 14, 2018 14:16
--- NOTE | 2018-12-14 14:37 | NUR ---
CM/SS discharge information sent to [facility], where the patient had been residing for skilled care. Patient will transfer back over this day [id number]. RNing and patient's daughter updated.
== END 2018-12-14 16:20 ==
LOC: EDUNIT# 14:26 → ER 14:26 → 4TH 15:33
PROVIDERS: ADMIT Family Medicine; ATTEND Family Medicine
DX: N18.4 Chronic kidney disease, stage 4 (severe) (principal); D63.1 Anemia in chronic kidney disease; R79.1 Abnormal coagulation profile; R19.5 Other fecal abnormalities; R82.71 Bacteriuria; I50.9 Heart failure, unspecified; E11.9 Type 2 diabetes mellitus without complications; S42.202D Unspecified fracture of upper end of left humerus, subsequent encounter for fracture with routine healing; Z95.2 Presence of prosthetic heart valve; Z79.01 Long term (current) use of anticoagulants
CPT/HCPCS: 36415; 51702; 71045; 73502; 80053; 81000; 83735; 83880; 84484; 85007; 85014; 85018; 85025; 85027; 85610; 85730; 86141; 86850; 86870; 86900; 86901; 86902; 86922; 87077; 87088; 87186; 94640; 94760; 96374; G0378